=== PATIENT | female | born 1940 | race Caucasian/White ===

== ENCOUNTER → 2024-03-01 09:45 | Day surgery (SDC) | payer OTHER, SELFPAY | LOC: CATH 09:45 | PROVIDERS: ATTENDING PHYSICIAN Internal Medicine Cardiovascular Disease; FAMILY PHYSICIAN Internal Medicine; OTHER PHYSICIAN Internal Medicine Cardiovascular Disease | DX: I48.91 Unspecified atrial fibrillation (principal); I51.3 Intracardiac thrombosis, not elsewhere classified; I77.819 Aortic ectasia, unspecified site; I08.1 Rheumatic disorders of both mitral and tricuspid valves; I70.0 Atherosclerosis of aorta | CPT/HCPCS: 93312; 93320; 93325 ==

== ENCOUNTER 2024-04-11 09:37 | Day surgery (SDC) | payer OTHER, SELFPAY | END 2024-04-11 12:49 | disposition home or self-care (01) | LOC: CATH 09:37 | PROVIDERS: ATTENDING PHYSICIAN Internal Medicine Cardiovascular Disease; FAMILY PHYSICIAN Internal Medicine; OTHER PHYSICIAN Internal Medicine Interventional Cardiology | DX: I51.3 Intracardiac thrombosis, not elsewhere classified (principal); I48.91 Unspecified atrial fibrillation; Z85.07 Personal history of malignant neoplasm of pancreas; Z87.891 Personal history of nicotine dependence; Z79.01 Long term (current) use of anticoagulants | CPT/HCPCS: 93312; 93320; 93325 ==

== ENCOUNTER → 2024-04-16 09:24 | Outpatient (REF) | payer OTHER, SELFPAY | LOC: HWRAD 09:24 | PROVIDERS: ATTENDING PHYSICIAN Nurse Practitioner; FAMILY PHYSICIAN Internal Medicine | DX: R19.4 Change in bowel habit (principal) | CPT/HCPCS: 74261 ==

== ENCOUNTER → 2024-06-06 13:06 | Outpatient (REF) | payer OTHER, SELFPAY | LOC: HWRCS 13:06 | PROVIDERS: ATTENDING PHYSICIAN Nurse Practitioner; FAMILY PHYSICIAN Internal Medicine | DX: I42.9 Cardiomyopathy, unspecified (principal); I51.3 Intracardiac thrombosis, not elsewhere classified | CPT/HCPCS: 93306 ==

== ENCOUNTER 2024-06-21 07:28 | Day surgery (SDC) | payer OTHER, SELFPAY | END 2024-06-21 10:09 | disposition home or self-care (01) | LOC: CATH 07:28 | PROVIDERS: ATTENDING PHYSICIAN Internal Medicine Cardiovascular Disease; FAMILY PHYSICIAN Internal Medicine; OTHER PHYSICIAN Internal Medicine Interventional Cardiology | DX: I48.91 Unspecified atrial fibrillation (principal); I08.3 Combined rheumatic disorders of mitral, aortic and tricuspid valves; I51.3 Intracardiac thrombosis, not elsewhere classified; I10 Essential (primary) hypertension; E78.00 Pure hypercholesterolemia, unspecified; E03.9 Hypothyroidism, unspecified; Z79.01 Long term (current) use of anticoagulants; Z79.899 Other long term (current) drug therapy | CPT/HCPCS: 93312; 93320; 93325 ==

== ENCOUNTER 2024-07-19 14:46 | Emergency (ER) | payer OTHER, SELFPAY ==
[2024-07-19 14:49] VITALS: BP 136/86
[2024-07-19 15:17] VITALS: BMI 22.3
[2024-07-19 15:18] VITALS: BP 130/101
--- NOTE | 2024-07-19 16:08 | ED.GENMED ---
History of Present Illness
General
Chief Complaint: Head Injury
Source: patient
Exam Limitations: none
Time Seen by Provider: 07/19/24 14:55
History of Present Illness
History of Present Illness:
83-year-old female on Shankar presents for evaluation of head injury after a fall she sustained yesterday. She was hanging curtains and lost her balance fell hitting her left side in her head. No loss of consciousness. She notes a slight headache
but also notes left rib pain. She had an appoint with the cardiology team today but was sent here afterwards for evaluation. No neck pain. No other complaints at this time
Past History
Past History
ED Past Medical History: Asthma, Cancer (Pancreatic CA), CHF, HTN, Hypercholesterolemia, Hypothyroidism and Other (cardiomyopathy, Duodenal ulcer, Thoracic Aneurysm that they are watching)
ED Past Surgical History: Cholecystectomy, Orthopedic and Other (Whipple procedure)
Social History
Tobacco: Former smoker
Alcohol: Occasional
Drug: None
Personal:
Living: alone
Phy Exam
Physical Exam
Physical Exam:
General: Well-appearing female no acute respiratory distress
HEENT: Normocephalic atraumatic
Heart: Regular rate and rhythm
Lungs: Clear no wheeze
Musculoskeletal exam: Slight tenderness about the left lateral ribs without step-off. Spine is nontender good range of motion all extremities
Neurologic exam: Alert conversing appropriately normal gait no facial asymmetry good strength
Course
Orders/Labs/Results
Orders:
Orders
07/19/24 14:[address] [CT Head W/o Iv Contrast] Urgent
Comment:
Reason For Exam: head strike on thinners
07/19/24 15:53
CR Ribs-left 3 Vw W/pa Chest Urgent
Comment:
Reason For Exam: fall, pain
Vital Signs
Initial and Last Documented VS:
Initial Vital Signs
Temp Pulse Resp BP Pulse Ox
98.4 F 77 18 136/86 98
07/19/24 14:49 07/19/24 14:49 07/19/24 14:49 07/19/24 14:49 07/19/24 14:49
Last Documented Vital Signs
Temp Pulse Resp BP Pulse Ox
97.6 F 91 24 130/101 98
07/19/24 15:18 07/19/24 15:18 07/19/24 15:18 07/19/24 15:18 07/19/24 15:18
MDM/Problems Addressed
Differential Diagnosis Includes:
Head injury. Consider contusion versus fracture versus intracranial hemorrhage. CT of the head was ordered and reviewed and is negative for acute finding.
Left rib discomfort after fall. Consider contusion versus rib fracture versus pneumothorax. Rib series pending
*Critical Care Note
Total Time (30-74mins, 75-104mins- exclusive of procedures): Not Applicable
Update Note
Update Note:
Rib series shows no obvious acute finding. There is old fractures noted of the ribs. There is no pneumothorax. No respiratory distress today. Suspect chest wall contusion. Stable for discharge
ED Attending Note
-
Portions of this chart may have been created with voice recognition software.� Occasional wrong word or��sound alike� substitutions may have occurred due to the inherent limitations of voice recognition software.
Discharge Plan
Departure
Patient Disposition: Home (Routine Discharge)
Date of Disposition: 07/19/24
Time of Disposition: 16:39
Patient with high blood pressure during this ER visit?: No
Discharge Problem:
Chest wall contusion
Instructions: Contusion (DC)
Prescriptions:
No Action
levothyroxine [Synthroid] 50 MCG tablet
50 mcg PO DAILY
losartan 50 MG tablet
50 mg PO DAILY
atorvastatin 40 MG tablet
10 mg PO QPM
venlafaxine 75 MG tablet
75 mg PO DAILY
Rx Instructions:
on hold due to interaction with eliquis
amitriptyline 10 MG tablet
10 mg PO HS
metoprolol tartrate 25 MG tablet
50 mg PO BID
tramadol 50 mg Tablet
50 mg PO BID PRN (Reason: pain)
acetaminophen [Tylenol Ex Str Arthritis Pain] 500 mg Tablet
500 mg PO BID
naproxen sodium [Aleve] 220 mg Tablet
220 mg PO BID PRN (Reason: pain)
omeprazole 20 mg Capsule,Delayed Release(Dr/Ec)
20 mg PO DAILY
Eliquis 5 mg Tablet
5 mg PO BID
Centrum Adults 12 mcg Tablet,Chewable
1 tab PO DAILY
amiodarone 200 mg Tablet
200 mg PO DAILY
cholecalciferol (vitamin D3) [Vitamin D3] 25 mcg (1,000 unit) Tablet
25 mcg PO DAILY
calcium carbonate-vitamin D3 [Calcium 500 + D (D3)] 500 mg-3.125 mcg (125 unit) Tablet
1 tab PO DAILY
Referrals:
Robert Maya DO [Family Provider] -
Activity Restrictions/Additional Instructions:
Use Tylenol for pain. Return here for worsening symptoms otherwise follow-up with your doctor
Interventions
Interventions:
*Risk Screen - Suicide Last Done: 07/19/24 14:49
*General Assessment Last Done: 07/19/24 14:49
*Neglect/Abuse Screening Last Done: 07/19/24 14:49
*ED- Fall Risk Assessment Last Done: 07/19/24 15:18
*ED COVID-19 Vaccine History Last Done: 07/19/24 15:18
ED- Neurological Assessment Last Done: 07/19/24 15:18
ED-Skin Assessment Last Done: 07/19/24 15:18
Discharge Date and Time
Print Language: SLOVAK
== END 2024-07-19 17:15 | disposition home or self-care (01) ==
LOC: EMR 14:46
PROVIDERS: EMERGENCY PHYSICIAN Emergency Medicine; FAMILY PHYSICIAN Internal Medicine
DX: S20.212A Contusion of left front wall of thorax, initial encounter (principal); S09.90XA Unspecified injury of head, initial encounter; W19.XXXA Unspecified fall, initial encounter; E03.9 Hypothyroidism, unspecified; E78.00 Pure hypercholesterolemia, unspecified; I11.0 Hypertensive heart disease with heart failure; I50.9 Heart failure, unspecified; J45.909 Unspecified asthma, uncomplicated; Z79.01 Long term (current) use of anticoagulants; Z85.07 Personal history of malignant neoplasm of pancreas; Z87.891 Personal history of nicotine dependence; Z90.49 Acquired absence of other specified parts of digestive tract
CPT/HCPCS: 99284; 70450; 71101

== ENCOUNTER → 2024-07-26 07:05 | Outpatient (REF) | payer OTHER, SELFPAY | LOC: RCS 07:05 | PROVIDERS: ATTENDING PHYSICIAN Physician Assistant; FAMILY PHYSICIAN Internal Medicine | DX: I48.91 Unspecified atrial fibrillation (principal); I42.9 Cardiomyopathy, unspecified | CPT/HCPCS: 78452; 93017; A9500; J2785 ==

== ENCOUNTER 2024-09-26 06:15 | Day surgery (SDC) | payer OTHER, SELFPAY ==
[2024-09-26 09:40] VITALS: BP 142/91; BMI 22.0
[2024-09-26 10:05] VITALS: BMI 22.0
--- NOTE | 2024-09-26 16:15 | DOWNTIME ---
There was a [employer] Client [employer] Downtime on 09/26/2024 from 1230 to 09/26/2024 at 1550. Downtime documentation of patient's care, including medication administrations, has been reconciled in the electronic record per guidelines. Refer to the
patient's paper chart under the miscellaneous tab to see printed paper medication records and downtime forms.
== END 2024-09-26 14:59 | disposition home or self-care (01) ==
LOC: SDS 06:15
PROVIDERS: ATTENDING PHYSICIAN Internal Medicine
DX: K29.50 Unspecified chronic gastritis without bleeding (principal); K22.89 Other specified disease of esophagus; K44.9 Diaphragmatic hernia without obstruction or gangrene; K31.89 Other diseases of stomach and duodenum; D50.9 Iron deficiency anemia, unspecified; Z98.890 Other specified postprocedural states; Z79.01 Long term (current) use of anticoagulants; Z90.411 Acquired partial absence of pancreas
CPT/HCPCS: 43239; 88305; 88342

== ENCOUNTER → 2024-10-03 13:43 | Outpatient (REF) | payer OTHER, SELFPAY | LOC: RCS 13:43 | PROVIDERS: ATTENDING PHYSICIAN Internal Medicine Interventional Cardiology; FAMILY PHYSICIAN Internal Medicine | DX: I42.9 Cardiomyopathy, unspecified (principal) | CPT/HCPCS: 93306 ==

== ENCOUNTER → 2024-11-05 15:26 | Outpatient (REF) | payer OTHER, SELFPAY | LOC: RAD 15:26 | PROVIDERS: ATTENDING PHYSICIAN Internal Medicine Gastroenterology; FAMILY PHYSICIAN Internal Medicine | DX: T14.8XXA Other injury of unspecified body region, initial encounter (principal) | CPT/HCPCS: 74018 ==

== ENCOUNTER 2024-11-28 18:19 | Inpatient (IN) | payer OTHER, SELFPAY ==
[2024-11-28] VITALS (9 sets, daily range): BP systolic 99–135; BP diastolic 63–89; BMI 21.9; BMI 20.6
[2024-11-28 13:27] LABS: Hematocrit 30.6 % (37.0-47.0); Hemoglobin 9.7 g/dL (12.0-16.0); Mean Corp Hgb Conc. 31.7 g/dL (33.0-37.0); Mean Corpuscular Volume 92.2 fL (81.0-99.0); Nucleated Red Blood Cells % 0 %; Platelet Count 351 10^3/uL (130-400)
[2024-11-28 13:33] LABS: INR 3.35; PT 34.2 Sec (11.4-14.6)
[2024-11-28 13:34] LABS: APTT 48.4 Sec (23.4-35.0)
[2024-11-28 13:41] LABS: Anisocytosis 1+; Hypochromasia 1+; Normal RBC Morphology No; Ovalocytes 1+; Polychromasia 1+
[2024-11-28 13:56] LABS: ALT (SGPT) 21 U/L (0-35); AST (SGOT) 34 U/L (14-36); Albumin 3.7 g/dl (3.5-5.0); Alkaline Phosphatase 97 U/L (38-126); Blood Urea Nitrogen 40 mg/dl (7-17); Calcium 9.0 mg/dl (8.4-10.2); Carbon Dioxide 28 mmol/L (22-30); Chloride 99 mmol/L (98-107); Glucose 87 mg/dl (70-99); Potassium 4.1 mmol/L (3.5-5.1); Sodium 133 mmol/L (135-145); Total Protein 6.1 g/dl (6.3-8.2); eGFR 33.94
--- NOTE | 2024-11-28 15:37 | ED.GENMED ---
History of Present Illness
General
Chief Complaint: Abdominal Symptoms
Source: patient and family
Exam Limitations: none
Time Seen by Provider: 11/28/24 14:58
Nursing documentation reviewed up to this point in time: agreed with
History of Present Illness
History of Present Illness:
84 yr old female with A-fib on Xarelto, hypertension hyperlipidemia reflux followed by GI here presents today with dark stools. She has had rectal for the past several weeks. Family reports her hemoglobin couple weeks ago was 8.0 and she was
started on iron. Son reports her hemoglobin was 10.7 as an outpatient 1 week ago. She did have an endoscopy in August 2024 which was negative and swallowed a pill camera 2 weeks ago but forgot to hand the camera in and has no results patient does
feel intermittently weak yesterday was weak today feels little bit better. Patient does report at times she does have shortness of breath which she has related this to her A-fib
Past History
Past History
ED Past Medical History: Asthma, Cancer (Pancreatic CA), CHF, HTN, Hypercholesterolemia, Hypothyroidism and Other (cardiomyopathy, Duodenal ulcer, Thoracic Aneurysm that they are watching)
ED Past Surgical History: Cholecystectomy, Orthopedic and Other (Whipple procedure)
Social History
Tobacco: Former smoker
Alcohol: Occasional
Drug: None
Personal:
Living: alone
Phy Exam
General Physical Exam
General Presentation: no apparent distress
General age: appears stated age
General Skin: warm and dry
General Habitus: elderly
General Mental: alert
General Hydration: appears well hydrated
Gastrointestinal Exam
Gastrointestinal Exam: soft and other (very dark stool heme positive )
Neurological Exam
Neurological Exam: alert and oriented x3
Musculoskeletal Exam
Musculoskeletal Exam: full ROM
Skin Exam
Skin Exam: normal color and warm/dry
Course
Orders/Labs/Results
Orders:
Orders
11/28/24 Lunch
Cholesterol Lowering
At Your Request: Full Participation
Cholesterol Lowering: Sodium, 2 Gram
11/28/24 13:07
Type And Crossmatch [Type+Screen] Urgent
Complete Blood Count/With Diff Urgent
Comprehensive Metabolic Panel Urgent
PTT Urgent
Prothrombin Time Urgent
11/28/24 14:44
ABO2 Urgent
BBK Wristband Number:
Associate notified that ABO2 has been ordered: [id number]
Date: 11/28/24
Time: 13:27
Diagnostic Tech ID: [id number]
11/28/24 17:32
Admit/Transfer Patient As Directed
Co-Sign Provider:
Level of Care: Inpatient admission
Assign to:: Telemetry
Physician / Group: Clau Gaytan - hospitalists
Diagnosis: Symptomatic, acute blood loss anemia with dark/tarred stools
Reason for Telemetry: Medication for Arrhythmia
Date to Stop Telemetry: 11/30/24
Time to Stop Telemetry: 11:00
Reason for Hospitalization: Symptomatic, acute blood loss anemia with dark/tarred stools - IV PPI, possible
blood, GI eval for EGD
Expected length of stay greater than two midnights?: Yes
ELOS- Estimated Length of Stay in days: 2
I certify the patient meets the requirements for IP care: Yes
PRN Pain Medication Management As Directed
May give lesser potent ordered pain med per pt: Yes
preference::
Protocol:: Medication orders for pain may be administered in a
manner that supports deferring to patient preference
when the pt is:
- Requesting an ordered lesser potent pain medication.
Least to most potent pain medications are defined
as: acetaminophen < NSAID < tramadol < opioids
(morphine, oxycodone, hydromorphone).
- Requesting a lesser dose of the same medication IF
ORDERED.
- Requesting a less intrusive route of administration
if both routes are prescribed by the provider (PO <
IV).
11/28/24 17:33
Code Status As Directed
Resuscitation Status: Full Code
11/28/24 17:[address] Non Medication Order As Directed
Physician Order: please perform admission med rec and contact hospitalist when complete
11/28/24 18:23
Acetaminophen [Tylenol] 650 mg PO Q4HPRN PRN
Albuterol Nebs [Ventolin Nebules] 2.5 mg INH R Q4HPRN PRN
Bisacodyl [Dulcolax] 10 mg RECTAL [id number] PRN
Docusate W/Senna [Senokot-S] 1 tablet PO BIDPRN PRN
Ondansetron Injectable [Zofran] 4 mg IV Q6HPRN PRN
Polyethylene Glycol Powder [Miralax] 17 grams PO DAILYPRN PRN
11/28/24 18:23
GASTROINTESTINAL CONSULT Routine
Consulting Provider: Billy Alexandre
Was physician already notified: Yes
Urinalysis Reflex To Culture Routine
Urine Creatinine Routine
Urine Sodium Routine
Activity As Directed
Activity Level: As Tolerated
Bladder Scan As Directed
Follow Bladder Retention/Intermittent Cath Algorithm?: Yes
PRN if no void in __ hours: 6
Frequency: Per Retention Algorithm
If Bladder Scan Result >: 400
then:: Straight cath
Pneumatic Compression Sleeves As Directed
Type: Knee high
Straight Cath As Directed
Frequency: Per Retention Algorithm
Additional Instructions: straight cath as needed per acute urinary retention algorithm for 24 hrs
Additional Instructions: for bladder scan greater than 400 mL
Vital Signs As Directed
Frequency: Per unit guidelines
DX Deep Vein Thrombosis Video Routine
11/28/24 20:00
Metoprolol Xl [Toprol Xl] 50 mg PO BID
Pantoprazole [Protonix IV] 40 mg IV BID
11/29/24 06:00
Basic Metabolic Panel IN AM
Complete Blood Count/No Diff IN AM
Ferritin IN AM
Folate IN AM
Iron IN AM
Total Iron Binding IN AM
Vitamin B12 IN AM
11/29/24 08:00
Amiodarone [Pacerone] 200 mg PO DAILY
11/30/24 Breakfast
NPO
Allow oral meds: Yes
Allow clear liquids: Sips of Clears
Basic Metabolic Panel IN AM
Complete Blood Count/No Diff IN AM
11/30/24 11:00
DC Protocol for Telemetry ONCE
12/01/24 06:00
Basic Metabolic Panel IN AM
Complete Blood Count/No Diff IN AM
Abnormal Lab Results
11/28/24
13:07
RBC 3.32 L 10^6/uL
(4.20-5.40)
Hgb 9.7 L g/dL
(12.0-16.0)
Hct 30.6 L %
(37.0-47.0)
MCHC 31.7 L g/dL
(33.0-37.0)
Absolute Lymphs (auto) 0.9 L 10^3/uL
(1.2-3.4)
Absolute Monos (auto) 0.7 H 10^3/uL
(0.1-0.6)
Lymphocytes % 15.5 L %
(20.5-51.1)
Monocytes % 12.3 H %
(1.7-9.3)
Eosinophils % 7.1 H %
(0-6)
PT 34.2 H Sec
(11.4-14.6)
APTT 48.4 H Sec
(23.4-35.0)
Sodium 133 L mmol/L
(135-145)
BUN 40 H mg/dl
(7-17)
Creatinine 1.5 H mg/dL
(0.6-1.0)
Total Protein 6.1 L g/dl
(6.3-8.2)
11/28/24 13:07
11/28/24 13:07
Vital Signs
Initial and Last Documented VS:
Initial Vital Signs
Temp Pulse Resp BP Pulse Ox
98.2 F 77 18 99/63 96
11/28/24 12:58 11/28/24 12:58 11/28/24 12:58 11/28/24 12:58 11/28/24 12:58
Last Documented Vital Signs
Temp Pulse Resp BP Pulse Ox
97.7 F 87 16 129/85 99
11/28/24 19:47 11/28/24 19:47 11/28/24 19:47 11/28/24 19:47 11/28/24 19:47
Hide Mill Worker consulted with Physician
Hide Mill Worker consulted with physician?: Yes
Name of Physician Consulted: [email or web address]
MDM/Problems Addressed
Differential Diagnosis Includes:
GI bleed, anemia
MDM/Problems Addressed:
Patient is an 84-year-old female on Xarelto for A-fib presenting with dark stools. She apparently is on iron as well started on this several weeks ago for a low hemoglobin of 8.0. Family reports it did increase to 10.7 the patient complained of
dark stools and weakness. Patient is no active bleeding but has very dark stool here which is heme positive. 9.7 will require admission for bleed on anticoagulation.
Chronic conditions affecting care:
On Xarelto for A-fib
*Pulse Oximetry
SaO2: 97
Oxygen Mode of Delivery: Room air
Patient hypoxic: no
*Critical Care Note
Total Time (30-74mins, 75-104mins- exclusive of procedures): Not Applicable
ED Attending Note
-
Portions of this chart may have been created with voice recognition software.� Occasional wrong word or��sound alike� substitutions may have occurred due to the inherent limitations of voice recognition software.
Discharge Plan
Departure
Patient Disposition: Admit
Date of Disposition: 11/28/24
Time of Disposition: 15:58
Admit to: Med/Surg
Admit to doctor: hospitalist
Presentation/result/management discussed w/ accepting MD/DO: Hospitalist
Patient with high blood pressure during this ER visit?: No
Condition: Fair
Covid-19: Not Applicable
Discharge Problem:
GI (gastrointestinal bleed)
Interventions
Interventions:
*Risk Screen - Suicide Last Done: 11/28/24 12:58
*General Assessment Last Done: 11/28/24 12:58
*Neglect/Abuse Screening Last Done: 11/28/24 14:37
*ED- Fall Risk Assessment Last Done: 11/28/24 14:37
*ED COVID-19 Vaccine History Last Done: 11/28/24 20:44
*Nursing Disposition Last Done: 11/28/24 19:35
SH-Svwurp-Vbaayhkqae Assessment Last Done: 11/28/24 14:37
Discharge Date and Time
Discharge Date/Time: 11/28/24 19:35
--- NOTE | 2024-11-28 17:13 | HPS.HSE ---
Family Physician
-
Family Physician: Robert Maya
Chief Complaint
-
Symptomatic anemia
History of Present Illness
84 y/o F hx of pancreatic cancer s/p Whipple 2009, Afib, chronic CHF, HTN, HLD, GERD/Barretts esophagus presents to ER with dark stools. She reports rectal discomfort for past several weeks. She was evaluated and Hb level was 8.0. In the interim she
was started on oral iron. Most recent Hb was 10.7. She reports for past 1 week, she has noticed dark tarry stools and old appearing blood. Reports fatigue and SOB With exertion. Denies abd pain, no nausea/vomiting. No diarrhea. No fever/chills. No
chest pain. Had an EGD 08/2024 which did not showing bleeding lesion. She had a capsule study but forgot to hand in the camera therefore no results obtained.
Medical History
Past Medical History
Past Medical History: Reports Other (Asthma, Cancer (Pancreatic CA), CHF, HTN, Hypercholesterolemia, Hypothyroidism and Other (cardiomyopathy, Duodenal ulcer, Thoracic Aneurysm that they are watching))
Past Surgical History: Reports Other (Cholecystectomy, Orthopedic and Other (Whipple procedure))
Social History
Tobacco: Former Smoker
Alcohol: None
Drug: None
Personal:
Living: With Family (son)
Employment: Retired
Family History
Family History: Not pertinent
Allergies / Home Medications
Allergies reflects when Allergies were last updated in [email or web address].
Home Medications with original date entered in [email or web address]
Allergy/Medication List:
Allergies
Allergy/AdvReac Type Severity Reaction Status Date / Time
alendronate sodium (From Allergy stomach Verified 11/28/24 13:02
Fosamax) ulcer
clarithromycin (From Biaxin) Allergy severe Verified 11/28/24 13:02
nausea and
vomiting
meperidine HCl (From Demerol) Allergy severe Verified 11/28/24 13:02
nausea and
vomiting
morphine Allergy severe Verified 11/28/24 13:02
nausea and
vomiting
Home Medications
levothyroxine 50 mcg tablet (Synthroid) 50 mcg PO DAILY thyriod 09/30/08
amitriptyline 10 mg tablet 10 mg PO HS sleep 06/08/14
atorvastatin 40 mg tablet 10 mg PO QPM cholesterol 06/08/14
losartan 50 mg tablet 50 mg PO DAILY Blood Pressure 06/08/14
metoprolol tartrate 25 mg tablet 50 mg PO BID bp 06/08/14
venlafaxine 75 mg tablet 75 mg PO DAILY 06/08/14
acetaminophen 500 mg tablet 500 mg PO BID pain 03/01/24
naproxen sodium 220 mg tablet (Aleve) 220 mg PO BID PRN pain 03/01/24
omeprazole 20 mg capsule,delayed release 20 mg PO DAILY stomach 03/01/24
tramadol 50 mg tablet 50 mg PO BID PRN pain 03/01/24
amiodarone 200 mg tablet 200 mg PO DAILY 06/21/24
calcium 500 mg (as carbonate)-vitamin D3 3.125 mcg (125 unit) tablet 1 tab PO QPM 06/21/24
cholecalciferol (vitamin D3) 25 mcg (1,000 unit) tablet (Vitamin D3) 25 mcg PO DAILY 06/21/24
multivitamin with minerals-folic acid 12 mcg chewable tablet (Centrum Adults) 1 tab PO DAILY 06/21/24
Ocuvite 1 cap PO DAILY 09/26/24
rivaroxaban 20 mg tablet (Xarelto) 20 mg PO DAILY 09/26/24
Review of Systems
-
A 12 point ROS was completed and negative except as noted: Yes
Physical Exam
Vital Signs
Vital Signs
Temp Pulse Resp BP Pulse Ox
98.2 F 79 23 114/87 97
11/28/24 12:58 11/28/24 14:34 11/28/24 14:34 11/28/24 14:34 11/28/24 15:52
Physical Exam
General: No Apparent Distress
HEENT: NormoCephalic and Anicteric
Respiratory: Clear; No Wheezes
Cardiac: Irregular Rhythm
GI: Soft and Non Tender
Neuro: AO x 3
Hematologic/Lymphatic: No Lymphadenopathy
Psych: Calm
Laboratory Results
-
11/28/24 13:07
11/28/24 13:07
Laboratory Results
PT 34.2 Sec (11.4-14.6) H 11/28/24 13:07
INR 3.35 11/28/24 13:07
APTT 48.4 Sec (23.4-35.0) H 11/28/24 13:07
Total Bilirubin 0.6 mg/dl (0.2-1.3) 11/28/24 13:07
AST 34 U/L (14-36) 11/28/24 13:07
ALT 21 U/L (0-35) 11/28/24 13:07
Alkaline Phosphatase 97 U/L (38-126) 11/28/24 13:07
Data Reviewed
-
Lab Data: Labs Reviewed by me
Impression/Plan
-
Assessment:
Symptomatic, acute blood loss anemia with dark/tarred stools
reported hx of DU and GERD/Barretts
- Hb 9.7
- check anemia indices
- type/screen
- PPI BID
- hold Xarelto
- repeat CBC in AM; or sooner if acute bleeding occurs
- GI consultation
SHIRA
- check urine studies
- check bladder scans
- hold nephrotoxins (ARB)
Parox A. Fib
Chronic HFrEF
Essential HTN
- Echo 10/03/24: EF 35-40%, mild LVH. Global hypokinesis. mild-mod MR, mild-mod TR.
- continue Amiodarone/BB
- holding Xarelto
Hx of Asthma
- prn nebs
Hypercholesterolemia
- hold statin
Hypothyroidism
- continue replacement
Hx of Thoracic Aortic aneurysm
- continue OP surveillance
DVT ppx: SCDs
Code: Full
--- NOTE | 2024-11-28 17:47 | CM ---
CM reviewed chart and met with pt bedside in ED. Lives in 2 story home, 3 SERGE, first floor half BA, second floor BR/full BA. Son lives with her and other 2 children live close by.
Independent in ADLs, personal care and ambulation at baseline. Uses SPC, also has rolling walker.
Hx VN years ago, no hx SNF, hx inpatient rehab at [place].
PCP: Robert Maya
Pharmacy: [facility]
CM will continue to follow for all discharge planning needs
[2024-11-28] MEDS: TOPROL XL 50 MG PO (21:37)
[2024-11-28] MEDS: PROTONIX IV 40 MG IV (21:37)
[2024-11-28] MEDS: NSS (PRESERVATIVE FREE) 10 ML IV (21:37)
[2024-11-29 03:37] VITALS: BP 129/84
[2024-11-29 06:00] VITALS: BMI 20.6
--- NOTE | 2024-11-29 06:19 | CON.GI ---
Addendum entered and electronically signed by LA Anguiano 11/29/24 14:54:
correction pt s/p Miralax this am will give 10mg Dulcolax now prior to prep
Addendum entered and electronically signed by LA Anguiano 11/29/24 14:49:
pt and family agreeable for EGD/colon in AM will add prep and give dose miralax now
Addendum entered and electronically signed by LA Anguiano 11/29/24 11:16:
spoke with son he will be in later today to review with patient for work up and timing. updated nursing staff
Addendum entered and electronically signed by Billy Alexandre DO 11/29/24 10:56:
I saw and examined the patient.
The LAUNDRY CLERK's note was reviewed and I agree with the note.
Comment: Ms Santos is a 84 y.o female with a past medical history of HTN, HLD, GERD, non-dysplastic Rodriguez's, A Fib (on xarelto), pancreatic cancer (s/p Whipple in 1998) and prior history of obscure GI bleeding (08/2024 with prior unremarkable EGD
08/2024) who represented with melena and symptomatic anemia. She previously underwent an extensive endoscopic evaluation in the past however her last colonoscopy was two years ago and aborted due to A Fib with RVR. An eventual virtual colonoscopy on
04/2024 was unremarkable aside from a redundant colon without any obvious lesions. She was previously advised to have a VCE but was never returned for results to obtained. Now with similar presentation with concern for melena and acute blood
loss/symptomatic anemia consistent with obscure GI bleeding. Etiology seems concerning for AVMs given her risk factors and overall presentation. Much less likely PUD, Dieulafoy's lesion, etc. Doubt malignancy. Currently, she remains HD-stable
without concern for brisk GI bleeding. She would benefit from an eventual EGD with push-enteroscopy and colonoscopy tomorrow versus early next week (ie Tuesday, 12/03) if patient is amenable along with further discussions with family particularly if
patient is to be restarted on a/c. If bi-directional endoscopy is unrevealing, she would benefit from an eventual repeat VCE for further evaluation to complete her GI w/u. For now, would continue to hold a/c to allow for a 2-day washout of xarelto
along with empiric IV PPI and trending Hgb with serial CBC. Okay for CLD and will start prep this afternoon if patient/family are amenable. See rest of plan as outlined below.
GI will continue to follow and further recommendations to be forthcoming pending discussions with family. Thank you for allowing me to participate in the care of this patient. Please do not hesitate to call for any further questions.
Addendum entered and electronically signed by LA Anguiano 11/29/24 10:05:
left another message for son to review plan
Original Note:
Consultation
-
Date/Time Consultation Requested: 11/28/245
Date/Time Consultation Performed: 11/29/24 0620
Requesting Provider: Clau Gaytan MD
Performing Provider: LA Moore, Billy Alexandre DO
Reason for Consultation: black stools
Medical History
Chief Complaint / HPI
Chief Complaint: dark stools
History of Present Illness:
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
ascending aorta, hyperlipidemia, A-fib on Xarelto, left atrial�thrombus, hypothyroidism who follows with Dr. Bower outpatient for anemia. Last GI evaluation in August with noted Advil use twice a day and constipation with drop in hbg from 13.5 in
May to 9 in August. Per OP chart pt had �attempted a colonoscopy at [facility] about 2 years ago but she had gone into rapid A-fib and procedure was aborted and she was sent to the emergency room and since then she has been on anticoagulation
initially Eliquis and now on Xarelto and sees Dr. Rodriguez.� She had a virtual CT 04/2024 which did�not reveal any evidence of polyps or neoplasm.� There was evidence of redundant colon residual stool. At that visit noted with cora coley and reported
also had an MRI 01/2024 to�follow-up with her history of pancreatic cancer and elevated CA 19-9 which was�unremarkable with no evidence of recurrence. She was recommended EGD (completed 09/[address] Hurtado with suspicious for rodriguez;s small HH,
atrophic and erythematous mucosa, patent wipple with health mucosa bx with chronic inactive gastritis, neg H pylori. She proceeded to capsule 10/25 but per chart noted with confusion and concern that pt capsule was never retrieved by patient.
Family did contact office 11/27 with concern for continued low hbg and dark stools and directed to ER. On admission hbg was 9.7 ER rectal dark heme + stool.
In review with patient she does have some forgetfulness but admits to intermittent dark stools. She also admits to constipation and wt loss( per chart 10 kg since June) . She denies dysphagia, GERD, nausea, vomiting, abdominal pain,diarrhea
or red blood in stools.
Past Medical History
Past Medical History: Arrhythmias (on Xarelto), Asthma, Cancer (pancreatic CA with dysplastic cell./IPMN with whipple in 1998), GERD, HTN, Hypercholesterolemia, Hypothyroidism, Psychiatric (depression ) and Other (osteoporosis, migraines, ascending
aorta Aneurysm, left atrial thrombus, hx duodenal ulcer, CM)
Social History
Tobacco: Non-Smoker
Alcohol: None
Drug: None
Living: With Family
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
Family History
Family History: Other (father lung CA, mother Aortic insufficiency)
Allergies / Home Medications
Allergy/AdvReac Type Severity Reaction Status Date / Time
alendronate sodium (From Allergy stomach Verified 11/28/24 13:02
Fosamax) ulcer
clarithromycin (From Biaxin) Allergy severe Verified 11/28/24 13:02
nausea and
vomiting
meperidine HCl (From Demerol) Allergy severe Verified 11/28/24 13:02
nausea and
vomiting
morphine Allergy severe Verified 11/28/24 13:02
nausea and
vomiting
�Medication �Instructions �Recorded
levothyroxine 50 mcg tablet 50 mcg PO DAILY thyriod 09/30/08
(Synthroid)
amitriptyline 10 mg tablet 10 mg PO HS sleep 06/08/14
atorvastatin 40 mg tablet 10 mg PO QPM cholesterol 06/08/14
losartan 50 mg tablet 50 mg PO DAILY Blood Pressure 06/08/14
metoprolol tartrate 25 mg tablet 50 mg PO BID bp 06/08/14
venlafaxine 75 mg tablet 75 mg PO DAILY 06/08/14
acetaminophen 500 mg tablet 500 mg PO BID pain 03/01/24
naproxen sodium 220 mg tablet 220 mg PO BID PRN pain 03/01/24
(Aleve)
omeprazole 20 mg capsule,delayed 20 mg PO DAILY stomach 03/01/24
release
tramadol 50 mg tablet 50 mg PO BID PRN pain 03/01/24
amiodarone 200 mg tablet 200 mg PO DAILY 06/21/24
calcium 500 mg (as 1 tab PO QPM 06/21/24
carbonate)-vitamin D3 3.125 mcg
(125 unit) tablet
cholecalciferol (vitamin D3) 25 25 mcg PO DAILY 06/21/24
mcg (1,000 unit) tablet (Vitamin
D3)
multivitamin with minerals-folic 1 tab PO DAILY 06/21/24
acid 12 mcg chewable tablet
(Centrum Adults)
Ocuvite 1 cap PO DAILY 09/26/24
rivaroxaban 20 mg tablet (Xarelto) 20 mg PO DAILY 09/26/24
Review of Systems
-
Unable to obtain full review of systems at this time due to: Other (forgetful in exam )
History Source: Patient
Constitutional: Reports Weight Loss
EENT: Reports No Symptoms
Respiratory: Reports No Symptoms
Cardiac: Reports No Symptoms
Abdomen/GI: Reports Constipated and Black Stools
: Reports No Symptoms
Musculoskeletal: Reports No Symptoms
Skin: Reports No Symptoms
Neurological: Reports Weakness
Endocrine: Reports No Symptoms
Hematologic/Lymphatic: Reports Bleeding
Vital Signs
Temp Pulse Resp BP Pulse Ox
97.5 F 85 18 129/84 96
11/29/24 03:37 11/29/24 03:37 11/29/24 03:37 11/29/24 03:37 11/29/24 03:37
Physical Exam
Exam
General: Well Developed, Well Nourished and No Apparent Distress
HEENT: Normocephalic and Anicteric
Respiratory: Clear
Cardiac: Regular Rhythm
GI: Soft, Non Tender and Non Distended
Rectal: Hem Positive (dark in ER )
Musculoskeletal: No Clubbing and No Cyanosis
Skin: Warm and Dry
Neuro: Awake, Alert and Other (forgetful to some questions )
Psych: Calm
Results
WBC 5.9 10^3/uL (4.8-10.8) 11/28/24 13:07
Hgb 9.7 g/dL (12.0-16.0) L 11/28/24 13:07
Hct 30.6 % (37.0-47.0) L 11/28/24 13:07
MCV 92.2 fL (81.0-99.0) 11/28/24 13:07
Plt Count 351 10^3/uL (130-400) 11/28/24 13:07
Absolute Neuts (auto) 3.8 10^3/uL (1.4-6.5) 11/28/24 13:07
PT 34.2 Sec (11.4-14.6) H 11/28/24 13:07
INR 3.35 11/28/24 13:07
APTT 48.4 Sec (23.4-35.0) H 11/28/24 13:07
Sodium 133 mmol/L (135-145) L 11/28/24 13:07
Potassium 4.1 mmol/L (3.5-5.1) 11/28/24 13:07
Chloride 99 mmol/L (98-107) 11/28/24 13:07
Carbon Dioxide 28 mmol/L (22-30) 11/28/24 13:07
BUN 40 mg/dl (7-17) H 11/28/24 13:07
Creatinine 1.5 mg/dL (0.6-1.0) H 11/28/24 13:07
Calcium 9.0 mg/dl (8.4-10.2) 11/28/24 13:07
Total Bilirubin 0.6 mg/dl (0.2-1.3) 11/28/24 13:07
AST 34 U/L (14-36) 11/28/24 13:07
ALT 21 U/L (0-35) 11/28/24 13:07
Alkaline Phosphatase 97 U/L (38-126) 11/28/24 13:07
Diagnostic Image Results:
05/23/2024 celiac serologies�negative fecal fat is normal�pancreatic elastase low at 21 fecal Pollo elevated at 992 ESR 7
04/18/[address] scattered�fecal residue especially in the cecum and ascending colon, no medium sized or clinically significant polyps were noted, redundant colon residual stool
02/21/2024 MRI abdomen with MRCP normal liver, patent hepatic and portal veins, no ductal dilatation,�pneumobilia status post Whipple and cholecystectomy no signs of recurrent�pancreatic
11/05/24 abd X ray
1. No radiographic evidence for an endoscopy capsule in the abdomen or pelvis.
2. Moderate to large amount of fecal material in the ascending and transverse colon.
3. Severe multilevel lumbar discogenic degenerative disease.
4. Moderate right convex curvature of the midlumbar spine.
Prior GI Procedures:
EGD: 09/[address] Hurtado with suspicious for rodriguez;s small HH, atrophic and erythematous mucosa, patent wipple with health mucosa bx with chronic inactive gastritis, neg H pylori
Colonoscopy: attempted 2 years ago sent to ER with rapid afib and procedure aborted.
Assessment / Plan
-
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
aorta, hyperlipidemia, A-fib on Xarelto, left atrial�thrombus, hypothyroidism who follows with Dr. Bower outpatient for anemia. She now returns for continued dark stools and hbg 9.7 on admission with dark heme + stool in ER.
In review with patient
prior GI work up:
colon attempted 2 years ago [facility] aborted with rapid afib
virtual CT 04/2024 which did�not reveal any evidence of polyps or neoplasm.� There was evidence of redundant colon. residusal stool
EGD completed 09/[address] Hurtado with suspicious for rodriguez;s small HH, atrophic and erythematous mucosa, patent wipple with health mucosa bx with chronic inactive gastritis, neg H pylori.
capsule 10/25 but noted with confusion pt capsule was never retrieved by patient.
02/21/2024 MRI abdomen with MRCP normal liver, patent hepatic and portal veins, no ductal dilatation,�pneumobilia status post Whipple and cholecystectomy no signs of recurrent�pancreatic
-dark heme + stool
-anemia
-wt loss
-constipation
-hx panc CA dysplastic cells IPMN status post Whipple in 1998
-hx duodenal ulcer
-afib on Xarelto prior to admission
other med problems
-asthma
-osteoporosis
-GERD
-DVT
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
- migraines
-depression
-HTN
-�aneurysm of ascending aorta
-hyperlipidemia
- left atrial�thrombus
-hypothyroidism
PLAN:
etiology of bleeding unclear -- ectasia anywhere in GI tract, - PUD, mass but not noted on recent testing vs other
pt also with wt loss 10 kg per meditec since June
trend hbg and stool records
prior work up as noted
will need to review with family for conservative measure with close watch of hbg and stools with heme eval vs attempt to repeat EGD with enteroscopy/colon after Xarelto wash out
t/c eventual CT with wt loss and hx panc CA but MRI last fall and virtual recently completed as noted
if capsule attempted will need 24 hours supervision for watching for retrieval
add iron studies, b12 and folate
cont clear diet til review with family for repeat EGD/enteroscopy and colonoscopy
NSAID avoidance
cont Xarelto hold-- pt unsure of last dose ? 11/28
cont PPI BID
will start miralax and senna with large stool burden on recent imaging and c/o constipation
I left message for son yarelis to review for work up and plan
-
-
-
Thank you for consultation and allowing me to participate in the patient's care. Please call the bus matron GI physician during the after hours with any questions or concerns.
[2024-11-29 07:36] VITALS: BP 132/93
[2024-11-29] MEDS: MIRALAX 17 GRAMS PO (08:09)
[2024-11-29] MEDS: TOPROL XL 50 MG PO ×2 (08:09→20:58)
[2024-11-29] MEDS: NSS (PRESERVATIVE FREE) 10 ML IV ×2 (08:09→20:58)
[2024-11-29] MEDS: PACERONE 200 MG PO (08:09)
[2024-11-29 08:10] LABS: Blood Urea Nitrogen 25 mg/dl (7-17); Calcium 9.1 mg/dl (8.4-10.2); Carbon Dioxide 30 mmol/L (22-30); Chloride 103 mmol/L (98-107); Estimated Creatinine Clearance 34 ml/min; Glucose 82 mg/dl (70-99); Iron 52 ug/dl (37-170); Potassium 4.4 mmol/L (3.5-5.1); Sodium 138 mmol/L (135-145); eGFR 55.21
[2024-11-29] MEDS: PROTONIX IV 40 MG IV ×2 (08:10→20:58)
[2024-11-29 08:20] LABS: Total Iron Binding Capacity 328 ug/dl (265-497)
[2024-11-29 08:23] LABS: Hematocrit 33.8 % (37.0-47.0); Hemoglobin 10.4 g/dL (12.0-16.0); Mean Corp Hgb Conc. 30.8 g/dL (33.0-37.0); Mean Corpuscular Volume 93.1 fL (81.0-99.0); Platelet Count 372 10^3/uL (130-400)
[2024-11-29 10:39] LABS: Ferritin 43.2 ng/ml (11.1-264.0)
[2024-11-29 10:50] VITALS: BMI 20.6
[2024-11-29 11:05] VITALS: BP 124/87
[2024-11-29 11:11] LABS: Folate > 20.0 ng/ml (2.76-20); Vitamin B12 812 pg/ml (239-931)
--- NOTE | 2024-11-29 14:47 | W.PN.HOSP.TC ---
Today's Communication/Plan
-
NPO p MN for EGD/[place] tomorrow
Assessment / Plan
Assessment / Plan
Assessment:
Symptomatic, acute blood loss anemia with dark/tarred stools
reported hx of DU and GERD/Barretts
- Hb 10.4
- low iron sats; add IV Iron
- type/screen
- PPI BID
- hold Xarelto
- follow CBC daily
- GI consulted; for EGD/Colon Tuesday after Xarelto washout
SHIRA, pre-renal
- improved; follow BMP
- hold nephrotoxins (ARB)
Parox A. Fib
Chronic HFrEF
Essential HTN
- Echo 10/03/24: EF 35-40%, mild LVH. Global hypokinesis. mild-mod MR, mild-mod TR.
- continue Amiodarone/BB
- holding Xarelto
Hx of Asthma
- prn nebs
Hypercholesterolemia
- hold statin
Hypothyroidism
- continue replacement
Hx of Thoracic Aortic aneurysm
- continue OP surveillance
DVT ppx: SCDs
Code: Full
Anticipated Discharge: 24 - 48 hours
Subjective/Interval History
-
Date of Service: November 29, 2024
Hb 10.4
Objective Data
-
Labs:
Laboratory Results
11/29/24
07:08
WBC 5.6
Hgb 10.4 L
Hct 33.8 L
Plt Count 372
Sodium 138
Potassium 4.4
Chloride 103
Carbon Dioxide 30
BUN 25 H
Creatinine 1.0
Glucose 82
Calcium 9.1
Vital Signs:
Vital Signs
Temp Pulse Resp BP Pulse Ox
98.1 F 91 18 124/87 97
11/29/24 11:05 11/29/24 11:05 11/29/24 11:05 11/29/24 11:05 11/29/24 07:36
Physical Exam
-
General: No Apparent Distress
HEENT: Normocephalic and Atraumatic
Respiratory: Negative Wheezes
Cardiac: Regular Rhythm and S1/S2
GI: Soft and Nontender
Musculoskeletal: No Edema
Neuro: AO x 3
Hematologic / Lymphatic: No Lymphadenopathy
Psych: Calm
Data Reviewed
-
Total Time Spent with Patient (in minutes): 42
Labs: Labs Reviewed by me
[2024-11-29 15:00] VITALS: BP 150/99
--- NOTE | 2024-11-29 15:24 | CM ---
Chart reviewed; anticipated discharge ~24-48 hours. Case Management will continue to monitor for discharge needs and support as needed when identified.
[2024-11-29] MEDS: DULCOLAX 10 MG PO (17:00)
[2024-11-29] MEDS: NULYTELY SOLUTION 4 LITERS PO (17:27)
[2024-11-29 19:00] VITALS: BP 150/100
[2024-11-29] MEDS: SENOKOT 17.2 MG PO (22:32)
[2024-11-29] MEDS: ELAVIL 10 MG PO (22:32)
[2024-11-29 23:00] VITALS: BP 120/88
[2024-11-30] VITALS (9 sets, daily range): BP systolic 16–145; BP diastolic 84–94
[2024-11-30 07:45] LABS: Hematocrit 32.9 % (37.0-47.0); Hemoglobin 10.2 g/dL (12.0-16.0); Mean Corp Hgb Conc. 31.0 g/dL (33.0-37.0); Mean Corpuscular Volume 94.0 fL (81.0-99.0); Platelet Count 324 10^3/uL (130-400)
[2024-11-30 07:54] LABS: INR 1.07; PT 14.2 Sec (11.4-14.6)
[2024-11-30 08:32] LABS: Blood Urea Nitrogen 14 mg/dl (7-17); Calcium 8.7 mg/dl (8.4-10.2); Carbon Dioxide 27 mmol/L (22-30); Chloride 106 mmol/L (98-107); Estimated Creatinine Clearance 38 ml/min; Glucose 82 mg/dl (70-99); Potassium 4.1 mmol/L (3.5-5.1); Sodium 137 mmol/L (135-145); eGFR > 60.00
[2024-11-30] MEDS: TOPROL XL 50 MG PO (09:04)
[2024-11-30] MEDS: PACERONE 200 MG PO (09:04)
[2024-11-30] MEDS: EFFEXOR 75 MG PO (09:04)
[2024-11-30] MEDS: NSS (PRESERVATIVE FREE) 10 ML IV (09:05)
[2024-11-30] MEDS: MIRALAX PO (09:05)
[2024-11-30] MEDS: GAVILAX 119 GM PO (09:05)
[2024-11-30] MEDS: PROTONIX IV 40 MG IV (09:05)
--- NOTE | 2024-11-30 14:02 | W.PN.UPDATE ---
Update Note
Progress Note Update
D/w hospitalist.
OK DC GI POV
Will set up caspule outpatient pt agreeable
Recommend outpatient eval for weight loss with PCP
--- NOTE | 2024-11-30 14:35 | CM ---
Reviewed the chart notes and spoke with the patient at the bedside. IMM reviewed. CM continues to be available to patient/family and is monitoring medical plan for needs at discharge.
Plan: Discharge to home when medically stable.
--- NOTE | 2024-11-30 14:54 | W.PN.HOSP.TC ---
Addendum entered and electronically signed by Clau Gaytan MD 11/30/24 15:54:
Severe Protein Calorie Malnutrition
Original Note:
Today's Communication/Plan
-
dc to home today
Assessment / Plan
Assessment / Plan
Assessment:
Symptomatic, acute blood loss anemia with dark/tarred stools
reported hx of DU and GERD/Barretts
- Hb 10.2
- s/p IV iron; continue PO iron at home
- continue PPI
- resume Xarelto
- GI consulted; for EGD/Colon 11/30 negative. OP capsule to be arranged.
SHIRA, pre-renal
- improved; follow BMP
- hold nephrotoxins (ARB)
Parox A. Fib
Chronic HFrEF
Essential HTN
- Echo 10/03/24: EF 35-40%, mild LVH. Global hypokinesis. mild-mod MR, mild-mod TR.
- continue Amiodarone/BB
- resume Xarelto
Hx of Asthma
- prn nebs
Hypercholesterolemia
- resume statin
Hypothyroidism
- continue replacement
Hx of Thoracic Aortic aneurysm
- continue OP surveillance
DVT ppx: SCDs
Code: Full
More than 30 minutes spent in discharge including
Final examination of the patient
Summarizing hospital stay
Instructions for continuing care to all relevant caregivers
Preparation of discharge records, prescriptions, and referral forms
Total time spent (in minutes): 41
Anticipated Discharge: Today
Subjective/Interval History
-
Date of Service: November 30, 2024
s/p Small bowel EGD and Colonoscopy negative
no complaints at present
Objective Data
-
Labs:
Laboratory Results
11/30/24
07:36
WBC 6.7
Hgb 10.2 L
Hct 32.9 L
Plt Count 324
PT 14.2
INR 1.07 D
Sodium 137
Potassium 4.1
Chloride 106
Carbon Dioxide 27
BUN 14
Creatinine 0.9
Glucose 82
Calcium 8.7
Vital Signs:
Vital Signs
Temp Pulse Resp BP Pulse Ox
97.5 F 75 16 134/94 93
11/30/24 14:20 11/30/24 14:20 11/30/24 14:20 11/30/24 14:20 11/30/24 14:20
I&O
11/29/24 11/30/24 12/01/24
06:59 06:59 06:59
Intake Total 3000 / 3000
Balance 3000 / 3000
Physical Exam
-
General: No Apparent Distress
HEENT: Normocephalic and Atraumatic
Respiratory: Negative Wheezes
Cardiac: Regular Rhythm and S1/S2
GI: Soft
Genito-urinary: No Costovertebral Tender
Musculoskeletal: No Edema
Neuro: AO x 3
Psych: Calm
Data Reviewed
-
Total Time Spent with Patient (in minutes): 41
Labs: Labs Reviewed by me
--- NOTE | 2024-11-30 15:05 | W.DS.TRANS ---
DC Summary - [employer]
-
Discharge Instructions:
Sleep Apnea Risk Low
Discharge Diagnosis/Procedures symptomatic anemia, iron deficiency. EGD/
Colonoscopy negative on 11/30.
Diet Regular,Supplements
Activity As tolerated
Instructions:
Stand-Alone Forms:
Changes to Home Medications: No
Discharge Medications:
DC Medications w/original date entered in [employer]
levothyroxine 50 mcg tablet (Synthroid) 75 mcg PO DAILY thyriod 09/30/08
amitriptyline 10 mg tablet 10 mg PO HS sleep 06/08/14
atorvastatin 40 mg tablet 10 mg PO QPM cholesterol 06/08/14
losartan 50 mg tablet 50 mg PO DAILY Blood Pressure 06/08/14
metoprolol tartrate 25 mg tablet 50 mg PO BID bp 06/08/14
venlafaxine 75 mg tablet 75 mg PO DAILY Mental Health/Anxiety 06/08/14
acetaminophen 500 mg tablet 500 mg PO BID pain 03/01/24
naproxen sodium 220 mg tablet (Aleve) 220 mg PO BID PRN pain 03/01/24
omeprazole 20 mg capsule,delayed release 20 mg PO DAILY stomach 03/01/24
tramadol 50 mg tablet 50 mg PO BID PRN pain 03/01/24
amiodarone 200 mg tablet 200 mg PO DAILY Blood Clot Prevention/Tx 06/21/24
calcium 500 mg (as carbonate)-vitamin D3 3.125 mcg (125 unit) tablet 1 tab PO QPM Supplement 06/21/24
cholecalciferol (vitamin D3) 25 mcg (1,000 unit) tablet (Vitamin D3) 25 mcg PO DAILY Supplement 06/21/24
multivitamin with minerals-folic acid 12 mcg chewable tablet (Centrum Adults) 1 tab PO DAILY Supplement 06/21/24
Ocuvite 1 cap PO DAILY Supplement 09/26/24
rivaroxaban 20 mg tablet (Xarelto) 20 mg PO DAILY Blood Clot Prevention/Tx 09/26/24
Home Medication Changes
Pending Results: No
Total time spent discharging patient (in min): 42
--- NOTE | 2024-11-30 15:45 | PN.CDI ---
CDI
- -
CDI:
Physician Documentation Request
Admit Date: 11/28/24 18:19
Dear Doctor Lucila,
Clinical Indicators:
Patient admitted with acute blood loss anemia.
11/30 note/assessment: -'Significant 22lb 18.9% wt loss over the past 3-4 months.'
-'Pt meets criteria for severe protein calorie malnutrition of chronic illness with
>7.5% wt loss x 3months, prolonged poor intake prior to admit <75% for >1month.'
Based on the above information and your assessment, which of the following most accurately represents the patient's nutritional status?
Severe Protein Calorie Malnutrition
Other (please specify)
[place] Criteria ([facility] Hospitalist 2017)
2 or more criteria must be present for either
non severe or severe malnutrition
Note that the criteria differs related to the
presence of an acute or chronic illness
Acute Illness Chronic Illness
Energy Intake Non Severe: <75% for >7 days Non Severe: <75% for >1 month
Severe: <50% for >5 days Severe: <75% for >1 month
Weight Loss Non Severe: 1-2% over 1 week Non Severe: 5% over 1 month
5% over 1 month 7.5% over 3 months
7.5% over 3 months 10% over 6 months
1 year N/A 20% over 1 year
Severe: >2% over 1 week Severe: >5% over 1 month
>5% over 1 month >7.5% over 3 months
>7.5% over 3 months >10% over 6 months
1 year N/A >20% over 1 year
Body Fat Non Severe: Mild Decrease Non Severe: Mild Loss
Severe: Moderate Decrease Severe: Severe Loss
Muscle Mass Non Severe: Mild Decrease Non Severe: Mild Loss
Severe: Moderate Decrease Severe: Severe Loss
Fluid Accumulation Non Severe: Mild Accumulation Non Severe: Mild Accumulation
Severe: Moderate to severe Severe: Moderate to severe
accumulation accumulation
Reduced [employer] Strength Non Severe: N/A Non Severe: N/A
Severe: Measurably reduced Severe: Measurably reduced
Additional criteria that can be used to Determine if Mild or Moderate Malnutrition ([employer]ck Manual 2018)
Mild Moderate Severe
Albumin gm/dl <3.0 gm/dl <2.5 gm/dl <2.0 gm/dl
Pre Albumin mg/dl <15 gm/dl <10 mg/dl <5.0 mg/dl
BMI <18.5 <17 <16
Use of terms such as suspected, likely, concern for, or probable (associated with a specific diagnosis that is being evaluated, monitored, or treated as if it exists) are acceptable and can be coded in the inpatient setting, when documented at the
time of discharge.
Thank you,
SUNIL Leon RN
CDI Specialist
available via tiger text
Please use your independent medical judgment in providing your response.
[2024-11-30] MEDS: FERRLECIT 110 MG IV (15:58)
== END 2024-11-30 19:00 | disposition home or self-care (01) | DRG 377 ==
LOC: 2 NORTH 18:19
PROVIDERS: Emergency Medicine; Internal Medicine Gastroenterology; Nurse Practitioner Adult Health; ADMITTING PHYSICIAN Internal Medicine; CONSULT PHYSICIAN Student in an Organized Health Care Education/Training Program; EMERGENCY PHYSICIAN Emergency Medicine; FAMILY PHYSICIAN Internal Medicine
PROC: 0DJ08ZZ Inspection of Upper Intestinal Tract, Via Natural or Artificial Opening Endoscopic (ICD-10-PCS; 2024-11-30)
PROC: 0DJD8ZZ Inspection of Lower Intestinal Tract, Via Natural or Artificial Opening Endoscopic (ICD-10-PCS; 2024-11-30)
DX: K92.1 Melena (principal); E43 Unspecified severe protein-calorie malnutrition; D62 Acute posthemorrhagic anemia; I50.22 Chronic systolic (congestive) heart failure; I42.8 Other cardiomyopathies; N17.9 Acute kidney failure, unspecified; D50.9 Iron deficiency anemia, unspecified; K21.9 Gastro-esophageal reflux disease without esophagitis; E78.00 Pure hypercholesterolemia, unspecified; I48.0 Paroxysmal atrial fibrillation; I11.0 Hypertensive heart disease with heart failure; K22.70 Barrett's esophagus without dysplasia; E03.9 Hypothyroidism, unspecified; I71.21 Aneurysm of the ascending aorta, without rupture; K59.00 Constipation, unspecified; Z68.20 Body mass index [BMI] 20.0-20.9, adult; M81.0 Age-related osteoporosis without current pathological fracture; F32.A Depression, unspecified; G43.909 Migraine, unspecified, not intractable, without status migrainosus; K64.9 Unspecified hemorrhoids; K57.30 Diverticulosis of large intestine without perforation or abscess without bleeding; D12.3 Benign neoplasm of transverse colon; D12.5 Benign neoplasm of sigmoid colon; K44.9 Diaphragmatic hernia without obstruction or gangrene; K22.89 Other specified disease of esophagus; K31.89 Other diseases of stomach and duodenum; Z85.07 Personal history of malignant neoplasm of pancreas; Z90.411 Acquired partial absence of pancreas; Z87.11 Personal history of peptic ulcer disease; Z87.891 Personal history of nicotine dependence; Z79.01 Long term (current) use of anticoagulants
CPT/HCPCS: 80048; 80053; 82607; 82728; 82746; 83540; 83550; 85025; 85027; 85610; 85730; 86850; 86900; 86901; 87070; 99285; J2916

== ENCOUNTER 2024-12-21 02:05 | Emergency (ER) | payer OTHER, SELFPAY ==
[2024-12-21 02:31] VITALS: BP 105/87
[2024-12-21 02:46] VITALS: BP 109/64
[2024-12-21 02:46] LABS: Hematocrit 27.8 % (37.0-47.0); Hemoglobin 8.7 g/dL (12.0-16.0); Mean Corp Hgb Conc. 31.3 g/dL (33.0-37.0); Mean Corpuscular Volume 93.6 fL (81.0-99.0); Nucleated Red Blood Cells % 0 %; Platelet Count 415 10^3/uL (130-400); Red Cell Dist. Width 20.2 % (11.5-14.5)
[2024-12-21 03:05] VITALS: BMI 24.3
[2024-12-21 03:06] VITALS: BP 105/69
[2024-12-21 03:07] LABS: ALT (SGPT) 33 U/L (0-35); AST (SGOT) 33 U/L (14-36); Albumin 2.9 g/dl (3.5-5.0); Alkaline Phosphatase 146 U/L (38-126); Blood Urea Nitrogen 20 mg/dl (7-17); Calcium 8.5 mg/dl (8.4-10.2); Carbon Dioxide 26 mmol/L (22-30); Chloride 105 mmol/L (98-107); Estimated Creatinine Clearance 44 ml/min; Glucose 148 mg/dl (70-99); Potassium 4.1 mmol/L (3.5-5.1); Sodium 138 mmol/L (135-145); Total Protein 5.2 g/dl (6.3-8.2); eGFR > 60.00
[2024-12-21 03:18] LABS: Troponin I < 0.012 ng/ml
--- NOTE | 2024-12-21 03:54 | ED.GENMED ---
History of Present Illness
General
Chief Complaint: Blood Pressure Problem
Source: patient
Exam Limitations: none
Time Seen by Provider: 12/21/24 03:01
Nursing documentation reviewed up to this point in time: agreed with
History of Present Illness
History of Present Illness:
84-year-old female with past medical history of atrial fibrillation on Eliquis, congestive heart failure, hypertension, hyperlipidemia, GERD, hypothyroidism, pancreatic cancer status post Whipple who presents to the emergency department from
[facility] rehab for evaluation of chest pain and shortness of breath; also had some transient hypotension. Patient was notably admitted to this hospital late October/early November, discharged 11/30. Unfortunately last week had a significant fall
at home down a few stairs and sustained serious injuries including: Neck fractures C1, C2, C7, thoracic fractures T7, T8, multiple displaced fractures of the ribs, pneumothorax, sacral fracture. She was admitted at [facility] and
ultimately discharged to [facility] for a few days ago. She says she has been doing generally well but tonight while sleeping she started to develop chest pain. She has had rib pain from her fractures but she says that tonight the pain was
distinct substernal chest pain associated with a feeling of shortness of breath. She says that symptoms seem to have resolved now she is not sure exactly how long they lasted but she thinks less than an hour. She denies any associated cough or
fever recently. She denies any nausea, vomiting. Denies abdominal pain. She denies any dizziness or lightheadedness. Per EMS report patient also had hypotension at [facility] associated with the symptoms with blood pressure in the 80s; she
was given 400 cc of IV fluids on the way to the hospital and is normotensive now.
Past History
Past History
ED Past Medical History: Asthma, Cancer (Pancreatic CA), CHF, HTN, Hypercholesterolemia, Hypothyroidism and Other (cardiomyopathy, Duodenal ulcer, Thoracic Aneurysm that they are watching)
ED Past Surgical History: Cholecystectomy, Orthopedic and Other (Whipple procedure)
Social History
Tobacco: Former smoker
Alcohol: Occasional
Drug: None
Personal:
Living: alone
Review of Systems
Review of Systems
All Other Systems: ROS reviewed and negative except as documented in HPI and ROS
Constitutional: Denies fever
Respiratory: Reports trouble breathing; Denies cough
Cardiac: Reports chest pain; Denies diaphoresis
ABD/GI: Denies abdominal pain, nausea or vomiting
: Denies flank pain
Musculoskeletal: Denies neck pain or back pain
Neurological: Denies dizzy or headache
Phy Exam
Physical Exam
Physical Exam:
General: Awake, alert, oriented x3; no acute distress
Head: Normocephalic, atraumatic
Eyes: Conjunctiva normal, sclera anicteric
Throat: Airway intact, handling secretions
Neck: Cervical collar in place
Lungs: Clear to auscultation bilaterally, no wheezing, rales, rhonchi
Heart: Regular rate and rhythm, no murmurs, gallops, or rubs; moderate left-sided chest wall tenderness, slight bruising lateral left chest wall/flank
Abd: Soft, non distended, nontender
Neuro: Grossly intact
Skin: No rash or concerning
Extremities: No edema in extremities, equal pulses in all extremities
Scores
Heart Failure Risk
Heart Failure Risk Score: Not Applicable
Heart Score for Chest Pain Patients
STEMI patient?: No
History: Slightly or Non-Suspicious
ECG: Nonspecific Repolarization
Age: >/= 65 years
Risk Factors: 1 or 2 Risk Factors
Troponin: </= Normal Limit
Heart Score for Chest Pain Patients: 4
Heart Score Risk: 20.3% MACE over next 6 weeks
Withdrawal Assessment of Alcohol
Withdrawal Assessment Completed?: Not applicable
Course
Orders/Labs/Results
Orders:
Orders
12/21/24 02:09
Electrocardiogram (*1) Urgent
Reason for Study: Chest Pain
EKG- Treatment ONCE
12/21/24 02:32
Complete Blood Count/With Diff Urgent
Comprehensive Metabolic Panel Urgent
Troponin I Urgent
12/21/24 03:53
CT Chest PE Study Urgent
Comment:
Reason For Exam: chest pain, SOB, recent hospitalization
12/21/24 05:48
Troponin I Urgent
12/21/24 06:42
Type+Screen Urgent
Abnormal Lab Results
12/21/24
02:32
WBC 12.5 H 10^3/uL
(4.8-10.8)
RBC 2.97 L 10^6/uL
(4.20-5.40)
Hgb 8.7 L g/dL
(12.0-16.0)
Hct 27.8 L %
(37.0-47.0)
MCHC 31.3 L g/dL
(33.0-37.0)
RDW 20.2 H %
(11.5-14.5)
Plt Count 415 H 10^3/uL
(130-400)
Abs Immat Gran (auto) 0.1 H 10^3/uL
(0-0.05)
Absolute Neuts (auto) 10.5 H 10^3/uL
(1.4-6.5)
Absolute Lymphs (auto) 1.0 L 10^3/uL
(1.2-3.4)
Absolute Monos (auto) 0.7 H 10^3/uL
(0.1-0.6)
Immature Gran % 0.8 H %
(0-0.5)
Neutrophils % 83.4 H %
(42.2-75.2)
Lymphocytes % 8.0 L %
(20.5-51.1)
BUN 20 H mg/dl
(7-17)
Glucose 148 H mg/dl
(70-99)
Alkaline Phosphatase 146 H U/L
(38-126)
Total Protein 5.2 L g/dl
(6.3-8.2)
Albumin 2.9 L g/dl
(3.5-5.0)
12/21/24 02:32
12/21/24 02:32
Vital Signs
Initial and Last Documented VS:
Initial Vital Signs
Temp Pulse BP Pulse Ox
36.5 C 79 105/87 100
12/21/24 02:31 12/21/24 02:31 12/21/24 02:31 12/21/24 02:31
Last Documented Vital Signs
Temp Pulse Resp BP Pulse Ox
36.7 C 80 22 131/82 97
12/21/24 03:08 12/21/24 05:30 12/21/24 05:30 12/21/24 05:00 12/21/24 04:53
MDM/Problems Addressed
Differential Diagnosis Includes:
Pain from rib fractures, symptomatic A-fib/flutter, recurrent pneumothorax, pulmonary embolism, pneumonia
MDM/Problems Addressed:
84-year-old female with history as noted presents to the ER for evaluation after episode of chest pain and shortness of breath that seems to resolved associated with some transient hypotension. Recent admission for significant trauma as described
above, discharged to rehab a few days ago. Vital signs here are normal including blood pressure 105/87, pulse rate in the 70s, normal pulse ox and afebrile. Physical exam as above. She had labs done in triage including CBC which shows
leukocytosis to 12.5 with anemia to 8.7�discharge hemoglobin 10.2 after multiple transfusions during recent admission for GI bleeding; unclear what her discharge value was at [facility] more recently. CMP no clinically significant
abnormalities. Troponin undetectable. Check CT chest. Repeat troponin. Reassess after the above.
CT called back by radiologist�no pneumothorax but patient does have very large chest wall hematoma on the left side adjacent to the rib fractures that appears acute�measures 5 x 12 x 17 cm. Patient is maintained on Xarelto still. She has had to
point drop in her hemoglobin compared to discharge value in early November. This finding with drop in hemoglobin and earlier hypotension, chest pain I think warrants observation in the hospital. Given the posttraumatic nature of this I do think she
should be transferred back to [place] with trauma service availability. Will discuss with transfer center.
As per the [facility] by Dr. Navarrete. Will monitor pending transport.
Chronic conditions affecting care:
A-fib on Xarelto
*Radiology
Radiology exam reviewed: radiology read reviewed
*Pulse Oximetry
SaO2: 97
Oxygen Mode of Delivery: Room air
Patient hypoxic: no (97%)
*EKG
Interpreted by ED Provider?: Yes
Heart Rate: 78
Rate: normal
Rhythm: sinus
[place]: left axis deviation
Interval: long QT
QRS Pattern: normal QRS
Ischemia: T-wave inversion (Lateral T wave abnormalities)
*Critical Care Note
Total Time (30-74mins, 75-104mins- exclusive of procedures): Not Applicable
Data Reviewed
Review of Other/Old Records Reveals: Labs, Records and Discharge Summary
Source: patient, records, ambulance crew, longterm and longterm records
Patient Management
Escalation/DeEscalation of care consider admission/obs:
Admission indicated�transfer to trauma center
ED Attending Note
-
Portions of this chart may have been created with voice recognition software.� Occasional wrong word or��sound alike� substitutions may have occurred due to the inherent limitations of voice recognition software.
Discharge Plan
Departure
Patient Disposition: Acute Care Hospital
Date of Disposition: 12/21/24
Time of Disposition: 05:56
Discharge Problem:
Chest wall hematoma
Prescriptions:
No Action
levothyroxine [Synthroid] 50 MCG tablet
75 mcg PO DAILY
losartan 50 MG tablet
50 mg PO DAILY
atorvastatin 40 MG tablet
10 mg PO QPM
venlafaxine 75 MG tablet
75 mg PO DAILY
Rx Instructions:
on hold due to interaction with eliquis
amitriptyline 10 MG tablet
10 mg PO HS
metoprolol tartrate 25 MG tablet
50 mg PO BID
tramadol 50 mg Tablet
50 mg PO BID PRN (Reason: pain)
acetaminophen 500 mg Tablet
500 mg PO BID
naproxen sodium [Aleve] 220 mg Tablet
220 mg PO BID PRN (Reason: pain)
omeprazole 20 mg Capsule,Delayed Release(Dr/Ec)
20 mg PO DAILY
Centrum Adults 12 mcg Tablet,Chewable
1 tab PO DAILY
amiodarone 200 mg Tablet
200 mg PO DAILY
cholecalciferol (vitamin D3) [Vitamin D3] 25 mcg (1,000 unit) Tablet
25 mcg PO DAILY
calcium carbonate-vitamin D3 500 mg-3.125 mcg (125 unit) Tablet
1 tab PO QPM
Xarelto 20 mg Tablet
20 mg PO DAILY
Ocuvite
1 cap PO DAILY
Referrals:
Robert Maya DO [Family Provider, Internal Medicine]
Hospital Transfer
Other hospital: [facility]
I certify that the patient requires transfer: Yes
Discussed case with accepting physician: Dr. Navarrete
Reason for transfer: specialties available
Interventions
Interventions:
*General Assessment Last Done: 12/21/24 02:11
*Neglect/Abuse Screening Last Done: 12/21/24 02:11
*ED- Fall Risk Assessment Last Done: 12/21/24 02:11
*ED COVID-19 Vaccine History Last Done: 12/21/24 02:11
ED- Cardiac Assessment Last Done: 12/21/24 03:06
ED- Neurological Assessment Last Done: 12/21/24 03:06
ED- Pulmonary Assessment Last Done: 12/21/24 03:06
Discharge Date and Time
Print Language: POLISH
[2024-12-21 04:00] VITALS: BP 117/88
[2024-12-21 05:00] VITALS: BP 131/82
[2024-12-21 06:38] LABS: Troponin I < 0.012 ng/ml
== END 2024-12-21 07:15 | disposition short-term general hospital (02) ==
LOC: EMR 02:05
PROVIDERS: EMERGENCY PHYSICIAN Emergency Medicine; FAMILY PHYSICIAN Internal Medicine
DX: S20.212A Contusion of left front wall of thorax, initial encounter (principal); X58.XXXA Exposure to other specified factors, initial encounter; Y92.129 Unspecified place in nursing home as the place of occurrence of the external cause; D64.9 Anemia, unspecified; D72.829 Elevated white blood cell count, unspecified; I48.91 Unspecified atrial fibrillation; I11.0 Hypertensive heart disease with heart failure; I50.9 Heart failure, unspecified; E78.00 Pure hypercholesterolemia, unspecified; I42.9 Cardiomyopathy, unspecified; I71.20 Thoracic aortic aneurysm, without rupture, unspecified; J45.909 Unspecified asthma, uncomplicated; E03.9 Hypothyroidism, unspecified; K86.81 Exocrine pancreatic insufficiency; K21.9 Gastro-esophageal reflux disease without esophagitis; Z79.01 Long term (current) use of anticoagulants; Z85.07 Personal history of malignant neoplasm of pancreas; Z90.411 Acquired partial absence of pancreas; Z87.891 Personal history of nicotine dependence
CPT/HCPCS: 99285; 71275; 80053; 84484; 85025; 93005; Q9967

== ENCOUNTER → 2025-01-02 10:19 | Outpatient (REF) | payer OTHER, SELFPAY ==
[2025-01-02 10:50] LABS: Hematocrit 32.2 % (37.0-47.0); Hemoglobin 9.8 g/dL (12.0-16.0); Mean Corp Hgb Conc. 30.4 g/dL (33.0-37.0); Mean Corpuscular Volume 97.3 fL (81.0-99.0); Platelet Count 503 10^3/uL (130-400); Red Cell Dist. Width 19.5 % (11.5-14.5)
== END ==
LOC: OLABN 10:19
PROVIDERS: ATTENDING PHYSICIAN Student in an Organized Health Care Education/Training Program
DX: E64.9 Sequelae of unspecified nutritional deficiency (principal); I10 Essential (primary) hypertension
CPT/HCPCS: 36415; 85027

== ENCOUNTER 2025-02-18 19:54 | Emergency (ER) | payer OTHER, SELFPAY ==
[2025-02-18 19:56] VITALS: BP 143/92
[2025-02-18] MEDS: ULTRAM 25 MG PO (22:00)
[2025-02-18 22:01] VITALS: BMI 21.9
--- NOTE | 2025-02-18 22:52 | ED.MUSCINJ ---
HPI-Injury
General
Chief Complaint: Fall
Source: patient and family
Exam Limitations: none
Time Seen by Provider: 02/18/25 21:14
Nursing documentation reviewed up to this point in time: agreed with
History of Present Illness-Injury
Is this injury a work related problem?: No
Is pt an associate of [facility]?: No
Initial Injury comments:
84-year-old female left-sided rib pain acute on chronic problem 12 weeks ago she fell admitted to [facility] with rib fracture and C-spine fracture was at this [place] recuperating, collar came off today she slipped and fell hit her ribs
on a chair, no head strike no neck pain she has some pain with deep breath which is not new for her she has been using incentive spirometer she has supportive family has occupational therapy and physical therapy previously on tramadol which
apparently worked for her none for about 12 weeks
Past History
Past History
ED Past Medical History: Asthma, Cancer (Pancreatic CA), CHF, HTN, Hypercholesterolemia, Hypothyroidism and Other (cardiomyopathy, Duodenal ulcer, Thoracic Aneurysm that they are watching)
ED Past Surgical History: Cholecystectomy, Orthopedic and Other (Whipple procedure)
Social History
Tobacco: Former smoker
Alcohol: Occasional
Drug: None
Personal:
Living: alone
Phy Exam
Physical Exam
Physical Exam:
Physical Exam
General: Pleasant elderly female resting comfortable
Neck: No tongue bite no midline neck pain no bruising
Heart: s1/s2 regular rate and rhythm, no murmur. equal radial pulses.
Lungs: no acute respiratory distress. Point tender left posterior ribs and anterior
Abdomen: Not tender
Neuro: alert and oriented. no focal neurological deficits
Skin: no rash
Psychiatric: cooperative
Extremities: No sign of
Injury Course
Orders/Labs/Results
Orders:
Orders
02/18/25 21:28
Ribs, Left 3 View W/PA Chest CR [CR Ribs-left 3 Vw W/pa Chest] Urgent
Comment:
Reason For Exam: fall today, 12wk sp rib fx
02/18/25 21:29
Tramadol HCl [Ultram] 25 mg PO NOW STA
*Pulse Oximetry
SaO2: 94
Nasal Cannula flow liters per minute: 2
Oxygen Mode of Delivery: Room air
Patient hypoxic: no
*Critical Care Note
Total Time (30-74mins, 75-104mins- exclusive of procedures): Not Applicable
Update Note
Update Note:
Chest and rib series noted, looks like subacute to chronic scarring with sclerosis no obvious pneumothorax or obvious acute fracture
1115 patient looks comfortable encouraged to use her incentive spirometer, she has Tylenol and tramadol at home or and only use tramadol for back pain
ED Attending Note
-
Portions of this chart may have been created with voice recognition software.� Occasional wrong word or��sound alike� substitutions may have occurred due to the inherent limitations of voice recognition software.
Discharge Plan
Departure
Patient Disposition: Home (Routine Discharge)
Date of Disposition: 02/18/25
Time of Disposition: 23:13
Patient with high blood pressure during this ER visit?: No
Condition: Good
Discharge Problem:
Chest wall pain, chronic
Instructions: Rib fracture or bruised rib - ED (DC)
Prescriptions:
No Action
levothyroxine [Synthroid] 50 MCG tablet
75 mcg PO DAILY
losartan 50 MG tablet
50 mg PO DAILY
atorvastatin 40 MG tablet
10 mg PO QPM
venlafaxine 75 MG tablet
75 mg PO DAILY
Rx Instructions:
on hold due to interaction with eliquis
amitriptyline 10 MG tablet
10 mg PO HS
metoprolol tartrate 25 MG tablet
50 mg PO BID
tramadol 50 mg Tablet
50 mg PO BID PRN (Reason: pain)
acetaminophen 500 mg Tablet
500 mg PO BID
naproxen sodium [Aleve] 220 mg Tablet
220 mg PO BID PRN (Reason: pain)
omeprazole 20 mg Capsule,Delayed Release(Dr/Ec)
20 mg PO DAILY
Centrum Adults 12 mcg Tablet,Chewable
1 tab PO DAILY
amiodarone 200 mg Tablet
200 mg PO DAILY
cholecalciferol (vitamin D3) [Vitamin D3] 25 mcg (1,000 unit) Tablet
25 mcg PO DAILY
calcium carbonate-vitamin D3 500 mg-3.125 mcg (125 unit) Tablet
1 tab PO QPM
Xarelto 20 mg Tablet
20 mg PO DAILY
Ocuvite
1 cap PO DAILY
Referrals:
Robert Maya DO [Family Provider, Internal Medicine] - Next open appointment
Activity Restrictions/Additional Instructions:
Use incentive spirometer every 15 minutes
Tylenol as needed for pain tramadol for severe pain although use it sparingly to limit side effect
Interventions
Interventions:
*Risk Screen - Suicide Last Done: 02/18/25 23:45
*General Assessment Last Done: 02/18/25 19:56
*Neglect/Abuse Screening Last Done: 02/18/25 21:24
*ED- Fall Risk Assessment Last Done: 02/18/25 22:07
*ED COVID-19 Vaccine History Last Done: 02/18/25 22:07
*ED Influenza Vaccine History Last Done: 02/18/25 22:07
*Nursing Disposition Last Done: 02/18/25 23:45
ED-Musculoskeletal Assessment Last Done: 02/18/25 21:23
ED- Neurological Assessment Last Done: 02/18/25 21:23
ED-Skin Assessment Last Done: 02/18/25 21:24
Discharge Date and Time
Discharge Date/Time: 02/18/25 23:47
Print Language: LITHUANIAN
== END 2025-02-18 23:47 | disposition home or self-care (01) ==
LOC: EMR 19:54
PROVIDERS: EMERGENCY PHYSICIAN Emergency Medicine; FAMILY PHYSICIAN Internal Medicine
DX: G89.29 Other chronic pain (principal); R07.89 Other chest pain; E03.9 Hypothyroidism, unspecified; E78.00 Pure hypercholesterolemia, unspecified; I11.0 Hypertensive heart disease with heart failure; I50.9 Heart failure, unspecified; I42.8 Other cardiomyopathies; J45.909 Unspecified asthma, uncomplicated; Z87.81 Personal history of (healed) traumatic fracture; Z87.891 Personal history of nicotine dependence; Z90.49 Acquired absence of other specified parts of digestive tract
CPT/HCPCS: 99283; 71101

== ENCOUNTER 2025-02-20 21:53 | Inpatient (IN) | payer OTHER, SELFPAY ==
[2025-02-20] VITALS (11 sets, daily range): BP systolic 113–130; BP diastolic 77–98; BMI 21.6; BMI 20.5
[2025-02-20 17:39] LABS: Hematocrit 41.6 % (37.0-47.0); Hemoglobin 12.9 g/dL (12.0-16.0); Mean Corp Hgb Conc. 31.0 g/dL (33.0-37.0); Mean Corpuscular Volume 95.9 fL (81.0-99.0); Nucleated Red Blood Cells % 0 %; Platelet Count 477 10^3/uL (130-400); Red Cell Dist. Width 13.8 % (11.5-14.5)
--- NOTE | 2025-02-20 17:45 | ED.GENMED ---
History of Present Illness
<Ranjit Hood PA-C - Last Filed: 02/20/25 19:50>
General
Chief Complaint: Breathing Problem
Time Seen by Provider: 02/20/25 17:19
History of Present Illness
History of Present Illness:
84-year-old female with history of A-fib on Xarelto, unspecified chronic lung disease, and hypothyroidism presents to the emergency department due to low oxygen while at physical therapy today. She is approximately 3-month status post major trauma
with multiple rib fractures. She was seen in this emergency department 2 days ago after a repeat fall where x-rays showed no evidence for new injury to the chest wall or thorax. She states she felt tired today. Her son alludes to a history of
'bronchitis' that flares up this time of year with recurrent hypoxia. She was apparently hypoxic at 1 point during therapy last week but they chose not to seek medical evaluation. She denies chest pain or leg swelling. No hemoptysis. Has been
compliant with her Xarelto
Past History
<Ranjit Hood PA-C - Last Filed: 02/20/25 19:50>
Past History
ED Past Medical History: Asthma, Cancer (Pancreatic CA), CHF, HTN, Hypercholesterolemia, Hypothyroidism and Other (cardiomyopathy, Duodenal ulcer, Thoracic Aneurysm that they are watching)
ED Past Surgical History: Cholecystectomy, Orthopedic and Other (Whipple procedure)
Social History
Tobacco: Former smoker
Alcohol: Occasional
Drug: None
Personal:
Living: alone
Review of Systems
<Ranjit Hood PA-C - Last Filed: 02/20/25 19:50>
Review of Systems
Allergies reviewed?: Yes
All Other Systems: ROS reviewed and negative except as documented in HPI and ROS
Phy Exam
<Ranjit Hood PA-C - Last Filed: 02/20/25 19:50>
Physical Exam
Physical Exam:
GEN: Thin and frail, tachypneic
HEENT: Oral mucosa moist, no scleral icterus
Cardiac: Regular rate, and rhythm, no murmurs
Lung: Tachypneic without accessory muscle use, grossly diminished breath sounds
MSK: No gross deformity or injuries
Skin: Good color, no pallor or jaundice, no rashes
Neuro: AO x3, moves all extremities freely
Psych: Calm, cooperative
Scores
<Ranjit Hood PA-C - Last Filed: 02/20/25 19:50>
Heart Failure Risk
Heart Failure Risk Score: Not Applicable
Course
<Ranjit Hood PA-C - Last Filed: 02/20/25 19:50>
Orders/Labs/Results
Orders:
Orders
02/20/25 17:16
Electrocardiogram (*1) Urgent
Reason for Study: Shortness of Breath
EKG- Treatment ONCE
02/20/25 17:24
CR Chest Portable - 1 View Urgent
Comment:
Reason For Exam: SOB/hypoxia
Reason Study Needs to be Portable: Other
02/20/25 17:27
Complete Blood Count/With Diff Urgent
Comprehensive Metabolic Panel Urgent
NT-proBNP Urgent
Troponin I Urgent
02/20/25 18:55
Furosemide [Lasix] 20 mg IV NOW STA
Abnormal Lab Results
02/20/25
17:27
WBC 11.4 H 10^3/uL
(4.8-10.8)
MCHC 31.0 L g/dL
(33.0-37.0)
Plt Count 477 H 10^3/uL
(130-400)
Absolute Neuts (auto) 8.9 H 10^3/uL
(1.4-6.5)
Absolute Monos (auto) 1.0 H 10^3/uL
(0.1-0.6)
Neutrophils % 78.0 H %
(42.2-75.2)
Lymphocytes % 10.6 L %
(20.5-51.1)
BUN 21 H mg/dl
(7-17)
Glucose 129 H mg/dl
(70-99)
AST 67 H U/L
(14-36)
ALT 58 H U/L
(0-35)
Alkaline Phosphatase 214 H U/L
(38-126)
02/20/25 17:27
02/20/25 17:27
Vital Signs
Initial and Last Documented VS:
Initial Vital Signs
Temp Pulse Resp BP Pulse Ox
98.0 F 87 30 115/78 85
02/20/25 17:13 02/20/25 17:13 02/20/25 17:13 02/20/25 17:13 02/20/25 17:13
Last Documented Vital Signs
Temp Pulse Resp BP Pulse Ox
98.0 F 95 21 113/88 99
02/20/25 17:13 02/20/25 19:12 02/20/25 18:15 02/20/25 19:12 02/20/25 18:15
<Jorge Roman, DO - Last Filed: 02/20/25 17:54>
Orders/Labs/Results
Orders:
Orders
02/20/25 17:16
Electrocardiogram (*1) Urgent
Reason for Study: Shortness of Breath
EKG- Treatment ONCE
02/20/25 17:24
CR Chest Portable - 1 View Urgent
Comment:
Reason For Exam: SOB/hypoxia
Reason Study Needs to be Portable: Other
02/20/25 17:27
Complete Blood Count/With Diff Urgent
Comprehensive Metabolic Panel Urgent
NT-proBNP Urgent
Troponin I Urgent
02/20/25 18:55
Furosemide [Lasix] 20 mg IV NOW STA
Abnormal Lab Results
02/20/25
17:27
WBC 11.4 H 10^3/uL
(4.8-10.8)
MCHC 31.0 L g/dL
(33.0-37.0)
Plt Count 477 H 10^3/uL
(130-400)
Absolute Neuts (auto) 8.9 H 10^3/uL
(1.4-6.5)
Absolute Monos (auto) 1.0 H 10^3/uL
(0.1-0.6)
Neutrophils % 78.0 H %
(42.2-75.2)
Lymphocytes % 10.6 L %
(20.5-51.1)
BUN 21 H mg/dl
(7-17)
Glucose 129 H mg/dl
(70-99)
AST 67 H U/L
(14-36)
ALT 58 H U/L
(0-35)
Alkaline Phosphatase 214 H U/L
(38-126)
02/20/25 17:27
02/20/25 17:27
Vital Signs
Initial and Last Documented VS:
Initial Vital Signs
Temp Pulse Resp BP Pulse Ox
98.0 F 87 30 115/78 85
02/20/25 17:13 02/20/25 17:13 02/20/25 17:13 02/20/25 17:13 02/20/25 17:13
Last Documented Vital Signs
Temp Pulse Resp BP Pulse Ox
98.0 F 95 21 113/88 99
02/20/25 17:13 02/20/25 19:12 02/20/25 18:15 02/20/25 19:12 02/20/25 18:15
<Ranjit Hood PA-C - Last Filed: 02/20/25 19:50>
MDM/Problems Addressed
MDM/Problems Addressed:
Patient's symptoms are most likely acute CHF secondary to longstanding atrial fibs/atrial flutter. Her BNP is markedly elevated, she does not look grossly volume overloaded however chest x-ray is suspicious for vascular congestion. Will trial
low-dose Lasix and admit to the hospitalist service due to hypoxemia
<Ranjit Hood PA-C - Last Filed: 02/20/25 19:50>
*Pulse Oximetry
SaO2: 100
Nasal Cannula flow liters per minute: 3
Oxygen Mode of Delivery: Room air
Patient hypoxic: no
*Critical Care Note
Total Time (30-74mins, 75-104mins- exclusive of procedures): Not Applicable
ED Attending Note
<Ranjit Hood PA-C - Last Filed: 02/20/25 19:50>
-
Portions of this chart may have been created with voice recognition software.� Occasional wrong word or��sound alike� substitutions may have occurred due to the inherent limitations of voice recognition software.
<Jorge Roman DO - Last Filed: 02/20/25 17:54>
ED Attending Note
Patient seen and examined by attending physician: Yes
I performed the substantive portion of visit, reviewed & personally made and approve the management plan that is documented in note by myself or DOUG.: Yes
ED Attending Note:
I have seen and evaluated the patient with a [id number] encounter. I have spoken to the advance practicer provider and involved in the medical history, the physical exam, medical decision making.
Evaluation and management service: agree unless noted differently below.
Results interpretation: agree unless noted differently below.
Focused HPI: 84-year-old female presenting with weakness and shortness of breath. Patient had recent fall a few months ago where she developed multiple rib fractures. Patient claims compliance to her Xarelto
Physical exam: Frail. Shallow breaths but otherwise clear. No leg edema or unilateral tenderness
Medical Decision Making: Patient found to be hypoxic. Patient requiring supplemental oxygen. Patient ultimately require admission. PE is less likely given current anticoagulation. However, I did discuss the possibility of underlying lung disease
such as pulmonary fibrosis. Patient states she has had episodes of hypoxia
Discharge Plan
Departure
Patient Disposition: Admit
Date of Disposition: 02/20/25
Time of Disposition: 19:10
Admit to: Telemetry
Presentation/result/management discussed w/ accepting MD/DO: Hospitalist
Discharge Problem:
Acute congestive heart failure
Prescriptions:
No Action
levothyroxine [Synthroid] 50 MCG tablet
75 mcg PO DAILY
losartan 50 MG tablet
50 mg PO DAILY
atorvastatin 40 MG tablet
10 mg PO QPM
venlafaxine 75 MG tablet
75 mg PO DAILY
Rx Instructions:
on hold due to interaction with eliquis
amitriptyline 10 MG tablet
10 mg PO HS
metoprolol tartrate 25 MG tablet
50 mg PO BID
tramadol 50 mg Tablet
50 mg PO BID PRN (Reason: pain)
acetaminophen 500 mg Tablet
500 mg PO BID
naproxen sodium [Aleve] 220 mg Tablet
220 mg PO BID PRN (Reason: pain)
omeprazole 20 mg Capsule,Delayed Release(Dr/Ec)
20 mg PO DAILY
Centrum Adults 12 mcg Tablet,Chewable
1 tab PO DAILY
amiodarone 200 mg Tablet
200 mg PO DAILY
cholecalciferol (vitamin D3) [Vitamin D3] 25 mcg (1,000 unit) Tablet
25 mcg PO DAILY
calcium carbonate-vitamin D3 500 mg-3.125 mcg (125 unit) Tablet
1 tab PO QPM
Xarelto 20 mg Tablet
20 mg PO DAILY
Ocuvite
1 cap PO DAILY
Referrals:
UNKNOWN - PT DOES,NOT KNOW [Family Provider]
Interventions
Interventions:
*Risk Screen - Suicide Last Done: 02/20/25 17:13
*General Assessment Last Done: 02/20/25 17:13
*Neglect/Abuse Screening Last Done: 02/20/25 17:13
*ED- Fall Risk Assessment Last Done: 02/20/25 17:13
*ED COVID-19 Vaccine History Last Done: 02/20/25 17:13
*ED Influenza Vaccine History Last Done: 02/20/25 17:13
ED- Cardiac Assessment Last Done: 02/20/25 17:23
ED- Pulmonary Assessment Last Done: 02/20/25 17:23
Discharge Date and Time
Print Language: BHUTANESE
[2025-02-20 17:59] LABS: ALT (SGPT) 58 U/L (0-35); AST (SGOT) 67 U/L (14-36); Albumin 3.6 g/dl (3.5-5.0); Alkaline Phosphatase 214 U/L (38-126); Blood Urea Nitrogen 21 mg/dl (7-17); Calcium 9.3 mg/dl (8.4-10.2); Carbon Dioxide 28 mmol/L (22-30); Chloride 103 mmol/L (98-107); Estimated Creatinine Clearance 49 ml/min; Glucose 129 mg/dl (70-99); Potassium 3.8 mmol/L (3.5-5.1); Sodium 138 mmol/L (135-145); Total Protein 6.9 g/dl (6.3-8.2); eGFR > 60.00
[2025-02-20 18:09] LABS: Troponin I 0.018 ng/ml
[2025-02-20] MEDS: LASIX 20 MG IV (19:12)
--- NOTE | 2025-02-20 20:22 | HPS.HSE ---
Family Physician
-
Family Physician: NOT KNOW UNKNOWN - PT DOES
Chief Complaint
-
SOB, Weakness
History of Present Illness
Patient is an 84y F with PMH significant for A-Fib, HFrEF, Iron deficiency / blood loss anemia and recent major trauma who presents to ED complaining of SOB and weakness. History obtained from patient and family at the bedside. Patient suffered
major fall with trauma about 7 weeks ago. She had fractures of 7 left-sided ribs, 2 cervical vertebrae and her sacrum. She was admitted at [facility] and discharged to rehab. She seemed to be improving well per family - with fair mobility and very
little pain. About one week ago, she started to have notable dyspnea with exertion and increased complaints of left-sided chest pain. No significant cough, fevers / chills, etc.
Patient suffered an additional fall on Tuesday of this week. She was seen in the ED here for evaluation. No new fractures were appreciated; however, it was noted that she had incompletely healed L rib fractures with moderate - severe chest wall
deformity.
Patient has been followed by [facility]. She has been increasingly inactive according to family. At home her SpO2 was noted to be extremely low (in the 70s) and patient was advised to present to the ED for evaluation.
Other recent issues include iron deficiency anemia from presumed blood loss. Patient has completed EGD and colonoscopy with no evident source of bleeding. She attempted capsule endoscopy, but the capsule was not retrieved.
Patient was admitted to in November of this year for GI bleeding. Her Xarelto was held during that hospitalization and resumed thereafter.
Patient was on furosemide for CHF. Her BP was noted to be marginal at home after discharge from rehab and she was decreased to M-W-F dosing. Son states that her weight has remained stable at home - slightly decreasing if anything.
Medical History
Past Medical History
Past Medical History: Reports Other
Additional Past Medical History:
Pancreatic Cancer s/p Whipple
HFrEF
Hypertension
Thoracic Aortic Aneurysm
Atrial Fibrillation - Unknown Type
Left Atrial Appendage Thrombus
Anxiety / Depression
Mild Dementia
Hypothyroidism
Trauma / Rib Fractures
Past Surgical History: Reports Other
Additional Past Surgical History:
Whipple
Lumbar Laminectomy
Left TKA
Left TRENT
Cholecystectomy
Social History
Tobacco: Former Smoker
Alcohol: None
Drug: None
Living: With Family
Family History
Family History: Not pertinent
Allergies / Home Medications
Allergies reflects when Allergies were last updated in [employer].
Home Medications with original date entered in [employer]
Allergy/Medication List:
Allergies
Allergy/AdvReac Type Severity Reaction Status Date / Time
alendronate sodium (From Allergy stomach Verified 02/20/25 17:13
Fosamax) ulcer
clarithromycin (From Biaxin) Allergy severe Verified 02/20/25 17:13
nausea and
vomiting
meperidine HCl (From Demerol) Allergy severe Verified 02/20/25 17:13
nausea and
vomiting
morphine Allergy severe Verified 02/20/25 17:13
nausea and
vomiting
Home Medications
levothyroxine 50 mcg tablet (Synthroid) 75 mcg PO DAILY thyriod 09/30/08
amitriptyline 10 mg tablet 10 mg PO HS sleep 06/08/14
atorvastatin 40 mg tablet 10 mg PO QPM cholesterol 06/08/14
losartan 50 mg tablet 50 mg PO DAILY Blood Pressure 06/08/14
metoprolol tartrate 25 mg tablet 50 mg PO BID bp 06/08/14
venlafaxine 75 mg tablet 75 mg PO DAILY Mental Health/Anxiety 06/08/14
acetaminophen 500 mg tablet 500 mg PO BID pain 03/01/24
omeprazole 20 mg capsule,delayed release 20 mg PO DAILY stomach 03/01/24
amiodarone 200 mg tablet 200 mg PO DAILY Blood Clot Prevention/Tx 06/21/24
calcium 500 mg (as carbonate)-vitamin D3 3.125 mcg (125 unit) tablet 1 tab PO QPM Supplement 06/21/24
cholecalciferol (vitamin D3) 25 mcg (1,000 unit) tablet (Vitamin D3) 25 mcg PO DAILY Supplement 06/21/24
multivitamin with minerals-folic acid 12 mcg chewable tablet (Centrum Adults) 1 tab PO DAILY Supplement 06/21/24
rivaroxaban 20 mg tablet (Xarelto) 20 mg PO DAILY Blood Clot Prevention/Tx 09/26/24
furosemide 20 mg tablet 20 mg PO MOWEFR 02/20/25
Review of Systems
-
History Source: Patient and Family
A 12 point ROS was completed and negative except as noted: Yes
Constitutional: Reports Fatigue; Denies Fever or Chills
Respiratory: Reports Trouble Breathing; Denies Cough or Hemoptysis
Cardiac: Reports Chest Pain; Denies Diaphoresis or Palpitations
Abdomen/GI: Denies Abdominal Pain, Nausea, Vomiting or Diarrhea
: Denies Dysuria or Frequency
Musculoskeletal: Denies Joint Pain or Edema
Neurological: Reports Weakness; Denies Dizzy or Headache
Psych: Denies Depression or Anxiety
Physical Exam
Vital Signs
Vital Signs
Temp Pulse Resp BP Pulse Ox
98.0 F 85 25 118/87 98
02/20/25 17:13 02/20/25 19:45 02/20/25 19:45 02/20/25 19:45 02/20/25 19:45
Physical Exam
General: Other (84y F in no acute distress.)
HEENT: Moist mucous membranes, PERRLA and Other (No JVD / HJR)
Respiratory: Other (Decreased BS bilaterally. Evident L posterior chest wall deformity.)
Cardiac: S1/S2 and Irregular Rhythm; No Murmur
GI: Soft, Non Tender, Non Distended and Normal Bowel Sounds
Musculoskeletal: No Clubbing, No Cyanosis and No Edema
Neuro: Awake, Alert and Nonfocal/grossly intact
Laboratory Results
-
02/20/25 17:27
02/20/25 17:27
Laboratory Results
Total Bilirubin 0.9 mg/dl (0.2-1.3) 02/20/25 17:
AST 67 U/L (14-36) H 02/20/25 17:27
ALT 58 U/L (0-35) H 02/20/25 17:27
Alkaline Phosphatase 214 U/L (38-126) H 02/20/25 17:
Troponin I 0.018 ng/ml 02/20/25 17:27
Impression/Plan
-
A/P: Patient is an 84y F with PMH significant for A-Fib, CHF, hypertension and recent major trauma / rib fractures who presents to ED complaining of SOB, chest pain and with noted hypoxemia at home.
Acute Hypoxemic Respiratory Failure
- Admit for further evaluation and treatment.
- SpO2 in the 70s at home. Requiring 6 lpm of NC O2 to maintain adequate oxygenation.
- This is very likely multifactorial with contributing components of HFrEF, atelectasis / immobility, significant chest wall deformity, etc.
- Given multiple recent interruptions in Xarelto (for trauma, GI bleeding, etc) need to rule out PE.
- CTA pending - will follow-up those results.
- Treat individual issues as noted below.
- Continue oxygen / supportive care.
Acute on Chronic HFrEF
- Perhaps mild exacerbation of HFrEF.
- Recent decrease in Lasix dose. Difficult to monitor volume status with weight given recent trauma, decreased activity, decreased appetite, etc.
- IV Lasix daily for now.
- Cardiology evaluation for additional recommendations.
Moderate - Severe Chest Wall Deformity
Left Ribs 2-8 Fractures with Incomplete Healing
- Supportive care / pain control.
- Encourage activity.
- ? other options for treatment in this 84y F with mild dementia.
Persistent / Permanent Atrial Fibrillation
- Stable. Rate controlled at present.
- ANAMARIA done in June showed BIANCA thrombus.
- Maintained on Xarelto.
- Continue amiodarone and metoprolol.
Thoracic Aortic Aneurysm
- Under surveillance
- Follow-up CT findings.
Chronic Iron Deficiency Anemia
Chronic GI Blood Loss Anemia
- Hgb is stable at present on supplemental iron.
- EGD / colon unremarkable in the recent past.
- Capsule study planned but not yet successfully completed.
- Follow H&H. Monitor for any GI bleeding.
Hypothyroidism
- Continue current T4 replacement.
DVT Prophylaxis: Currently on Xarelto. Difficult situation with falls / major trauma and evidence of chronic GI bleeding AND documented presence of BIANCA thrombus.
Code Status: Full
[2025-02-20] MEDS: ELAVIL 10 MG PO (22:44)
[2025-02-20 22:57] LABS: COVID-19 Antigen Negative (Negative)
[2025-02-21] VITALS (15 sets, daily range): BP systolic 97–144; BP diastolic 72–109; PULSE 87–98; O2SAT 96; BMI 20.5
[2025-02-21] MEDS: ZOSYN 50 IV ×4 (00:21→17:52)
[2025-02-21 01:37] LABS: Troponin I 0.018 ng/ml
[2025-02-21] MEDS: SYNTHROID 75 MCG PO (05:17)
[2025-02-21 06:01] LABS: Hematocrit 39.6 % (37.0-47.0); Hemoglobin 12.5 g/dL (12.0-16.0); Mean Corp Hgb Conc. 31.6 g/dL (33.0-37.0); Mean Corpuscular Volume 93.6 fL (81.0-99.0); Platelet Count 426 10^3/uL (130-400); Red Cell Dist. Width 14.0 % (11.5-14.5)
[2025-02-21 06:22] LABS: Blood Urea Nitrogen 15 mg/dl (7-17); Calcium 8.8 mg/dl (8.4-10.2); Carbon Dioxide 32 mmol/L (22-30); Chloride 101 mmol/L (98-107); Estimated Creatinine Clearance 43 ml/min; Glucose 110 mg/dl (70-99); Potassium 3.8 mmol/L (3.5-5.1); Sodium 140 mmol/L (135-145); eGFR > 60.00
[2025-02-21 06:32] LABS: Troponin I 0.014 ng/ml
[2025-02-21] MEDS: EFFEXOR XR 75 MG PO (08:01)
[2025-02-21] MEDS: XARELTO 15 MG PO (08:01)
[2025-02-21] MEDS: PACERONE 200 MG PO (08:01)
[2025-02-21] MEDS: LASIX 20 MG PO (08:03)
[2025-02-21] MEDS: TOPROL XL 50 MG PO ×2 (08:04→19:34)
[2025-02-21] MEDS: PROTONIX 40 MG PO (08:04)
--- NOTE | 2025-02-21 08:18 | VNURNOTE ---
Chart reviewed. Patient is current with [facility]. Will continue to follow hospital course and DC plans.
--- NOTE | 2025-02-21 08:47 | CON.CAR ---
Addendum entered and electronically signed by Jaswinder Wagner MD 02/21/25 12:29:
I saw and examined the patient.
The Energy Scheduler's note was reviewed and I agree with the note.
Comment:
GEN: No distress, awake, Ox3
HEENT: supple, anicteric, mmm
LUNGS: CTA, no wheezes/rales
CV: Irreg, S1/S2, 1/6 syst LSB, S3+
ABD: soft, BS+, NT/ND
EXT: trace edema
NEURO: Gross non-focal
SKIN: No rash
Plan:
84-year-old female with past medical history of persistent atrial fibrillation with persistent left atrial appendage thrombus despite anticoagulation, likely nonischemic cardiomyopathy who presents with progressive shortness of breath and acute on
chronic heart failure with reduced ejection fraction. She admits that for several weeks she has had fatigue and has become more hypoxic. Lasix was recently decreased to 20 mg 3 times a week and she presents in acute volume overload with a proBNP
of 6000. Chest CT also suggest possible pneumonia.
Will continue IV Lasix. Increase to 20 mg IV twice daily. Continue Toprol . No HOA/ARB/ARNI with hypotension.
Will check on cost of Farxiga.
We will continue rate control strategy for her atrial fibrillation. Continue Xarelto 15 mg daily. Case was discussed with primary filament maker recently and I would recommend repeat ANAMARIA over the next 1 to 2 weeks to reevaluate left atrial appendage
thrombus. It has been 8 months since we last looked at her left atrial appendage. I do believe she would benefit from a sinus rhythm long-term.
Will repeat transthoracic here to reevaluate LVEF and valves. She does have mild to moderate MR and TR.
Original Note:
Consultation
Consultation Request
Date/Time Consultation Performed: 02/21/25
Requesting Provider: Dr. Lucas
Performing Provider: Damaris Burnham PA-C for Dr. Wagner
Reason for Consultation: CHF
Medical History
-
Chief Complaint: SOB
History of Present Illness:
Patient is an 84-year-old female with past medical history of persistent atrial fibrillation with persistent left atrial appendage thrombus by ANAMARIA despite anticoagulation, presumed nonischemic cardiomyopathy, chronic heart failure with reduced EF
who presents to [facility] with complaints of worsening shortness of breath. She also reports orthopnea. She reports her ribs remained sore. She denies fevers or chills. She does report a mild cough. She denies lower extremity edema or
abdominal bloating and reports weight loss recently. She is presently on 4 L nasal cannula, however was not on supplemental oxygen coming into the hospital. She reports she is relatively asymptomatic with her A-fib, although occasionally feels her
heart racing. At last office visit 02/06/2025 her Lasix dose was decreased from 20 mg daily to 20 mg Tuesday due to relative hypotension. proBNP 6000. Chest CT was read as severe bilateral pneumonia. Cardiology consulted for
evaluation
PMH:
Persistent atrial fibrillation
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
Chronic amiodarone therapy
Presumed nonischemic cardiomyopathy
Chronic heart failure with reduced EF
Hypertension
Hyperlipidemia
History of pancreatic mass status post Whipple surgery 1998 at [facility] [place]
History of pulmonary embolism
Thoracic aortic aneurysm
Anxiety/depression
Hypothyroidism
Fall 11/2024 with 7 rib fractures and cervical spine fracture
Past Medical History
Past Medical History: Other (in HPI)
Social History
Tobacco: Former Smoker (remote)
Personal:
Living: With Family (son)
Employment: Retired
Family History
Family History: Cancer
Allergies / Home Medications
Allergy/AdvReac Type Severity Reaction Status Date / Time
alendronate sodium (From Allergy stomach Verified 02/20/25 17:13
Fosamax) ulcer
clarithromycin (From Biaxin) Allergy severe Verified 02/20/25 17:13
nausea and
vomiting
meperidine HCl (From Demerol) Allergy severe Verified 02/20/25 17:13
nausea and
vomiting
morphine Allergy severe Verified 02/20/25 17:13
nausea and
vomiting
�Medication �Instructions �Recorded �Confirmed �Type
levothyroxine 50 mcg tablet 75 mcg PO DAILY thyriod 09/30/08 02/20/25 History
(Synthroid)
amitriptyline 10 mg tablet 10 mg PO HS sleep 06/08/14 02/20/25 History
atorvastatin 40 mg tablet 10 mg PO QPM cholesterol 06/08/14 02/20/25 History
losartan 50 mg tablet 50 mg PO DAILY Blood Pressure 06/08/14 02/20/25 History
metoprolol tartrate 25 mg tablet 50 mg PO BID bp 06/08/14 02/20/25 History
venlafaxine 75 mg tablet 75 mg PO DAILY Mental 06/08/14 02/20/25 History
Health/Anxiety
acetaminophen 500 mg tablet 500 mg PO BID pain 03/01/24 02/20/25 History
omeprazole 20 mg capsule,delayed 20 mg PO DAILY stomach 03/01/24 02/20/25 History
release
amiodarone 200 mg tablet 200 mg PO DAILY Blood Clot 06/21/24 02/20/25 History
Prevention/Tx
calcium 500 mg (as 1 tab PO QPM Supplement 06/21/24 02/20/25 History
carbonate)-vitamin D3 3.125 mcg
(125 unit) tablet
cholecalciferol (vitamin D3) 25 25 mcg PO DAILY Supplement 06/21/24 02/20/25 History
mcg (1,000 unit) tablet (Vitamin
D3)
multivitamin with minerals-folic 1 tab PO DAILY Supplement 06/21/24 02/20/25 History
acid 12 mcg chewable tablet
(Centrum Adults)
rivaroxaban 20 mg tablet (Xarelto) 20 mg PO DAILY Blood Clot 09/26/24 02/20/25 History
Prevention/Tx
furosemide 20 mg tablet 20 mg PO MOWEFR 02/20/25 02/20/25 History
Review of Systems
-
History Source: Patient
All other systems: Negative unless noted
Physical Exam
Vital Signs
Temp Pulse Resp BP Pulse Ox
97.7 F 93 21 128/100 96
02/21/25 03:00 02/21/25 08:04 02/21/25 05:45 02/21/25 08:04 02/21/25 05:45
Lab Results
02/21/25 05:40
02/21/25 05:40
Troponin I 0.014 ng/ml 02/21/25 05:40
Auv-S-Plmgcunyibu Pept 6070 pg/ml 02/20/25 17:27
Physical Exam
General: No Apparent Distress, Comfortable and Other (On supplemental O2)
HEENT: Normocephalic, Anicteric and Moist Mucous Membranes
Respiratory: Crackles, Non Labored Respirations and Other (Coarse breath sounds bilaterally)
Cardiac: S1/S2 and Irregular Rhythm
GI: Soft, Non Tender, Non Distended and Normal Bowel Sounds
Musculoskeletal: No Clubbing, No Cyanosis and Edema (Trace of bilateral lower extremity)
Skin: Warm and Dry
Neuro: AO x 3
Impression / Plan
-
Primary filament maker: Dr. Rodriguez
Assessment:
Presentation with shortness of breath, hypoxia
Severe bilateral pneumonia by chest x-ray
Concern for acute on chronic heart failure with reduced EF
Persistent atrial fibrillation
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
Chronic amiodarone therapy
Presumed nonischemic cardiomyopathy, EF 30-35% by echo 09/2024
Hypertension
Hyperlipidemia
History of pancreatic mass status post Whipple surgery 1998 at [facility]
History of pulmonary embolism
Thoracic aortic aneurysm
Anxiety/depression
Hypothyroidism
Fall 11/2024 with 7 left-sided rib fractures and cervical spine and sacral fracture
Lexiscan nuclear stress test 07/26/2024: No perfusion abnormalities noted, EF 35%
Echo 06/06/2024: EF 20 to 25%, global hypokinesis with regional variability, mild to moderate MR, mild to moderate TR, PAP 50 to 55 mmHg, dilated ascending aorta measuring 3.9 cm
Echo 10/03/2024: EF 35 to 40%, global hypokinesis, mild LVH, mild to moderate MR, mild AR, mild to moderate TR, PAP 26 mmHg
Plan:
- Patient presents with shortness of breath, increasing levels of inactivity and hypoxia
- She had chest CT which was read as severe bilateral pneumonia. Continue antibiotics per primary service. COVID-negative
- Cardiology consulted as proBNP elevated at 6000 and there is concern for component of acute heart failure. She does endorse some orthopnea, however denies weight gain or lower extremity edema. Her Lasix dose was just decreased several weeks ago
from 20 mg daily to 20 mg Tuesday due to relative hypotension.
- will place on IV lasix 20mg daily and assess response. Cr stable at 0.8
- LFTs mildly elevated, follow with diuresis
- wean supp O2 as able
- last echo from 09/2024 with EF 35-40%. will repeat echo to reassess EF. continue toprol. OP losartan presently on hold. would consider addition of SGLT2 inhibitor if no contraindication
- remains in rate controlled afib on review of tele. she has history of persistent BIANCA clot despite OAC. continue BB, amiodarone.
- continue xarelto. currently on 20mg QPM however based on CrCl, would consider reducing dose to 15mg QPM.
- at some point once recovered from acute illness, would consider repeat ANAMARIA to reassess for BIANCA clot
- d/w nursing
Data Reviewed
-
EKG: Tracing Personally Visualized and interpreted
Radiology: Report Reviewed by me
CT Scan: Report Reviewed by me
Medical Tests (Nuc Med, Echo etc): Report Reviewed by me
Labs: Labs Reviewed by me
Old Records: Reviewed
--- NOTE | 2025-02-21 09:23 | PTCARENOTE ---
Pt AAOIx3 co of pain L side, repositioned offered Tylenol pt declined states it does not help. Breakfast ordeered and meds given .
--- NOTE | 2025-02-21 10:54 | CON.PUL ---
Consultation
Consultation Request
Date/Time Consultation Requested: 02/21/25
Date/Time Consultation Performed: 02/21/25
Performing Provider: Zaina
Reason for Consultation: Hypoxia, rib fx hx
Medical History
-
History of Present Illness:
Patient is an 84y F with PMH significant for A-Fib on Xarelto, HFrEF, Iron deficiency anemia presenting to ED complaining of SOB and weakness. Patient suffered major fall with trauma about 7 weeks ago. She had fractures of 7 ribs on the left, 2
cervical vertebrae and sacrum. She was admitted at [facility] and discharged to rehab. About one week ago, she started to have notable dyspnea with exertion and increased complaints of left-sided chest pain. No significant cough, fevers / chills.
Patient suffered an additional fall on Sunday 02/18. She was seen in the ED here for evaluation. No new fractures were appreciated; however, it was noted that she had incompletely healed L rib fractures with moderate-severe chest wall deformity.
She has been increasingly inactive in the past week according to family. At home her SpO2 was noted to be extremely low (in the 70s) and patient was advised to present to the ED for evaluation.
CT Chest obtained and negative for PE, she has multifocal PNA noted. She was 84-87% on RA, placed on O2. She is being treated for CHF, proBNP 6070.
Denies prior known history of lung disease in past, was a former trivial smoker overall <5 years.
Past Medical History
Past Medical History: Other (see list below)
Social History
Tobacco: Non-smoker
Alcohol: None
Drug: None
Allergies / Home Medications
Allergies
Allergy/AdvReac Type Severity Reaction Status Date / Time
alendronate sodium (From Allergy stomach Verified 02/20/25 17:13
Fosamax) ulcer
clarithromycin (From Biaxin) Allergy severe Verified 02/20/25 17:13
nausea and
vomiting
meperidine HCl (From Demerol) Allergy severe Verified 02/20/25 17:13
nausea and
vomiting
morphine Allergy severe Verified 02/20/25 17:13
nausea and
vomiting
Home Medications
�Medication �Instructions �Recorded �Confirmed �Last Taken �Type
levothyroxine 50 mcg tablet 75 mcg PO DAILY thyriod 09/30/08 02/20/25 09/26/24 06:00 History
(Synthroid)
amitriptyline 10 mg tablet 10 mg PO HS sleep 06/08/14 02/20/25 09/25/24 22:30 History
atorvastatin 40 mg tablet 10 mg PO QPM cholesterol 06/08/14 02/20/25 09/25/24 22:30 History
losartan 50 mg tablet 50 mg PO DAILY Blood Pressure 06/08/14 02/20/25 09/25/24 10:00 History
metoprolol tartrate 25 mg tablet 50 mg PO BID bp 06/08/14 02/20/25 09/25/24 22:30 History
venlafaxine 75 mg tablet 75 mg PO DAILY Mental 06/08/14 02/20/25 09/25/24 10:30 History
Health/Anxiety
acetaminophen 500 mg tablet 500 mg PO BID pain 03/01/24 02/20/25 3 Days Ago History
~09/23/24
omeprazole 20 mg capsule,delayed 20 mg PO DAILY stomach 03/01/24 02/20/25 09/25/24 22:30 History
release
amiodarone 200 mg tablet 200 mg PO DAILY Blood Clot 06/21/24 02/20/25 09/25/24 10:00 History
Prevention/Tx
calcium 500 mg (as 1 tab PO QPM Supplement 06/21/24 02/20/25 09/25/24 22:30 History
carbonate)-vitamin D3 3.125 mcg
(125 unit) tablet
cholecalciferol (vitamin D3) 25 25 mcg PO DAILY Supplement 06/21/24 02/20/25 06/20/24 10:00 History
mcg (1,000 unit) tablet (Vitamin
D3)
multivitamin with minerals-folic 1 tab PO DAILY Supplement 06/21/24 02/20/25 09/25/24 10:00 History
acid 12 mcg chewable tablet
(Centrum Adults)
rivaroxaban 20 mg tablet (Xarelto) 20 mg PO DAILY Blood Clot 09/26/24 02/20/25 09/24/24 09:00 History
Prevention/Tx
furosemide 20 mg tablet 20 mg PO MOWEFR 02/20/25 02/20/25 Unknown History
Review of Systems
-
History Source: Patient
All other systems: Negative unless noted
Vitals / Labs / Diagnostic Testing
Vital Signs
Temp Pulse Resp BP Pulse Ox
98.5 F 97 25 128/100 94
02/21/25 07:09 02/21/25 09:15 02/21/25 09:15 02/21/25 08:04 02/21/25 09:21
Lab Data
02/21/25 05:40
02/21/25 05:40
Diagnostic Testing:
Physical Exam
-
HEENT: Normocephalic, Anicteric and Moist Mucous Membranes
Cardiovascular: S1/S2 and Regular Rhythm
Respiratory: Rales and Non-Labored Respirations
GI: Soft, Non Distended and Non Tender
Neurology: Awake, Alert, Oriented and No Motor Deficits
Skin: Warm and Dry
General: Comfortable and Other (NAD)
Assessment
-
Patient is an 84y F with PMH significant for A-Fib on Xarelto, HFrEF, Iron deficiency anemia presenting to ED complaining of SOB and weakness. Patient suffered major fall with trauma about 7 weeks ago. She had fractures of 7 ribs on the left, 2
cervical vertebrae and sacrum. She was admitted at [facility] and discharged to rehab. About one week ago, she started to have notable dyspnea with exertion and increased complaints of left-sided chest pain. No significant cough, fevers / chills.
Patient suffered an additional fall on Sunday 02/18. She was seen in the ED here for evaluation. No new fractures were appreciated; however, it was noted that she had incompletely healed L rib fractures with moderate-severe chest wall deformity.
She has been increasingly inactive in the past week according to family. At home her SpO2 was noted to be extremely low (in the 70s) and patient was advised to present to the ED for evaluation. CT Chest obtained and negative for PE, she has
multifocal PNA noted. She was 84-87% on RA, placed on O2. She is being treated for CHF, proBNP 6070. We are consulted for hypoxemia.
Acute hypoxic respiratory failure
Multifocal opacities on CT/effusion
Acute CHF exacerbation
Recent history of Rib fractures with chest deformity on L
SOB
Progressive weakness
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
CHFrEF 35-40%
Atrial thrombus
Atrial fibrillation/Chronic anticoagulation
GERD without esophagitis
Hx of malignant neoplasm of pancreas
HTN
Chronic constipation
Unintentional weight loss
Anemia
Plan
Hypoxemia noted on arrival, O2 gabriel 84-87%
She is placed on 4L, weaned from 6L
Does not have baseline use of O2 at home
Home O2 evaluation eventually will be needed
Prior history of lung disease is NOT noted--
Denies prior known history of lung disease in past, was a former trivial smoker overall <5 years.
No prior PFTs for review
Suspect patient has AE CHF with known reduced EF
CXR/CT obtained indicating worsening mosaicism and effusion, compared to recent CT in Nov where there was little to no parenchymal disease
It would be less likely related to new lung disease in <2 mos time period
proBNP >6000
Prior ECHO results are reviewed indicating reduced EF
She has h/o atrial thrombus/fib on chronic OAC, less likely PE
CTA was negative
She is on lasix IV, agree with this
Monitor I/Os
She is placed on abx wtih presumption this could be PNA
She has no fever/chills, WBC 11.4 (mildly noted)
Check PCT, if negative can d/c abx and observe off
Smoking history noted--trivial
Not at risk for lung disease
Multiple falls noted, may need to consider PT/OT
SNF placement
Encouraged IS
She has forgetfulness as well
Fall risk
Will need outpatient pulmonary evaluation in our office for PFTs and 6MWT
Reviewed with patient
We will follow
Diagnostic Data
ECHO 10/03/24- Normal left ventricular size. Mildly reduced systolic function. LV ejection fraction is 35-40% by visual assessment. Global hypokinesis. Mild left ventricular hypertrophy. Mild to moderate mitral regurgitation. Mild aortic
regurgitation. Mild to moderate tricuspid regurgitation. Estimated pulmonary artery pressure of 26 mmHg. Compared to the previous echo from Jun 2024, which was reviewed, EF was 20-25% at that time, otherwise no significant change.
CT Chest 02/20/25- 1. SEVERE GROUND-GLASS OPACITY in the upper lobes, right middle lobe, and superior segment of the right lower lobe which appears new from 12/21/2024. Diagnostic possibilities are (1) SEVERE BILATERAL PNEUMONIA, (2) an acute
inflammatory pneumonitis, or (3) noncardiogenic pulmonary edema.
2. Central cylindrical bronchiectasis and diffuse bronchitis throughout both lungs.
3. Small to moderate-sized chronic subpleural airspace consolidation in the right lower lobe.
4. Small left and minimal right pleural effusions.
5. Severe biatrial cardiac enlargement.
6. Fusiform ascending thoracic aortic aneurysm (4.2 cm diameter).
7. Many subacute left posterior and lateral rib fractures (left 2nd through 8th ribs) with callus formation around some of the fractures suggesting fracture healing.
8. Mild portal venous air in the liver.
9. Moderate thoracic kyphosis secondary to a chronic endplate fracture of T7.
CT Chest 12/21/24: No CTA evidence for an acute pulmonary thromboembolism. Large hematoma of the left lateral chest wall. Multiple acute, displaced left rib fractures superimposed upon other older chronic rib fractures with resultant chest wall
deformity. Small fracture of the left eighth transverse process. Small left and trace right pleural effusions.
Reports and relevant images were personally reviewed.
Total time spent on this consultation __55__ minutes which includes review of history, physical exam, medications, laboratory data, personal review of imaging, extensive review of outpatient records, discussion with care team and respiratory therapy.
--- NOTE | 2025-02-21 13:08 | W.PN.HOSP.TC ---
Today's Communication/Plan
-
Monitor vitals
See plan
Continue with antibiotic
Continue with IV diuresis
Check echo
Wean oxygen as tolerated
xarelto
Assessment / Plan
Assessment / Plan
General: Other (84y F in no acute distress.)
HEENT: Moist mucous membranes, PERRLA and Other (No JVD / HJR)
Respiratory: Other (Decreased BS bilaterally. Evident L posterior chest wall deformity.)
Cardiac: S1/S2 and Irregular Rhythm; No Murmur
GI: Soft, Non Tender, Non Distended and Normal Bowel Sounds
Musculoskeletal: No Clubbing, No Cyanosis and No Edema
Neuro: Awake, Alert and Nonfocal/grossly intact
Acute Hypoxemic Respiratory Failure
Required 6 L nasal cannula on admission, now on 4 L. Wean oxygen as tolerated
- This is very likely multifactorial with contributing components of HFrEF, atelectasis / immobility, significant chest wall deformity, pneumonia, CHF
CT chest negative for DVT however showed severe ground glass opacity in upper lobes, right middle lobe and superior segment of right lower lobe. Suspect bilateral pneumonia, inflammatory pneumonitis and pulmonary edema. Central cylindrical
bronchiectasis and diffuse bronchitis. Many subacute left posterior and lateral rib fractures
- Treat individual issues as noted below.
- Continue oxygen / supportive care.
cw abx for now; pulmonary evaluation
Acute on Chronic HFrEF
- Perhaps mild exacerbation of HFrEF.
- Recent decrease in Lasix dose. Difficult to monitor volume status with weight given recent trauma, decreased activity, decreased appetite, etc.
- IV Lasix daily for now
Cardiology following
Echo
Moderate - Severe Chest Wall Deformity
Left Ribs 2-8 Fractures with Incomplete Healing
- Supportive care / pain control.
- Encourage activity.
Persistent Atrial Fibrillation
- Stable. Rate controlled at present.
- ANAMARIA done in June showed BIANCA thrombus.
- Maintained on Xarelto.
- Continue amiodarone and metoprolol.
Thoracic Aortic Aneurysm
- Under surveillance
- Follow-up CT findings.
Chronic Iron Deficiency Anemia
Chronic GI Blood Loss Anemia
- Hgb is stable at present on supplemental iron.
- EGD / colon unremarkable in the recent past.
- Capsule study planned but not yet successfully completed.
- Follow H&H. Monitor for any GI bleeding.
Hypothyroidism
- Continue current T4 replacement.
DVT Prophylaxis: Currently on Xarelto. Difficult situation with falls / major trauma and evidence of chronic GI bleeding AND documented presence of BIANCA thrombus.
Code Status: Full
I spent a total of 52 minutes with the patient or on the floor. More than 50% of this time involved counseling and coordination of care.
Anticipated Discharge: > 48 hours
Subjective/Interval History
-
Date of Service: February 21, 2025
denies pain
Objective Data
-
Labs:
Laboratory Results
02/21/25
05:40
WBC 8.9
Hgb 12.5
Hct 39.6
Plt Count 426 H
Sodium 140
Potassium 3.8
Chloride 101
Carbon Dioxide 32 H
BUN 15
Creatinine 0.8
Glucose 110 H
Calcium 8.8
Vital Signs:
Vital Signs
Temp Pulse Resp BP Pulse Ox
98.2 F 100 23 133/100 92
02/21/25 11:39 02/21/25 11:30 02/21/25 11:30 02/21/25 10:00 02/21/25 11:30
I&O
02/20/25 02/21/25 02/22/25
06:59 06:59 06:59
Intake Total 50 / 50
Output Total 1350 / 1350
Balance -1350 / -1350 50 / 50
[2025-02-21 13:55] LABS: Troponin I 0.014 ng/ml
--- NOTE | 2025-02-21 15:30 | CM ---
Initial Assessment Completed By Grecia
Patient lives in 2 story home with son only, 3 steps to enter the first floor where there is a half BA the second floor has a BR & full BA. Patient uses a rolling walker plus uses commode in the living room when son is not there. Had PT/ OT via
and No HX of SNF,
PCP: Robert Maya
Pharmacy: [facility]
Patient has transportation home. PLAN: Home PT vs. SNF
[2025-02-21 16:58] LABS: Procalcitonin 0.14 ng/ml (0.0-0.25)
[2025-02-21] MEDS: LIPITOR 10 MG PO (17:52)
[2025-02-21] MEDS: LASIX 20 MG IV (19:34)
--- NOTE | 2025-02-21 20:32 | PTCARENOTE ---
assumed care of pt from dayshift rn after change of shift report. pt is forgetful at times, able to be re directed. bed alarm in use. satting 95% on 4L 02. denies current SOB. afib on monitor, HR 98 bpm. assessment as documented. call light in
reach. safe environment maintained.
[2025-02-21] MEDS: ELAVIL 10 MG PO (21:48)
[2025-02-22] VITALS (19 sets, daily range): BP systolic 73–134; BP diastolic 54–114; PULSE 96; O2SAT 85
[2025-02-22] MEDS: ZOSYN 50 IV ×3 (00:36→12:24)
[2025-02-22 04:40] LABS: Hematocrit 39.7 % (37.0-47.0); Hemoglobin 12.8 g/dL (12.0-16.0); Mean Corp Hgb Conc. 32.2 g/dL (33.0-37.0); Mean Corpuscular Volume 91.5 fL (81.0-99.0); Nucleated Red Blood Cells % 0 %; Platelet Count 462 10^3/uL (130-400); Red Cell Dist. Width 13.7 % (11.5-14.5)
[2025-02-22 04:56] LABS: ALT (SGPT) 75 U/L (0-35); AST (SGOT) 79 U/L (14-36); Albumin 3.3 g/dl (3.5-5.0); Alkaline Phosphatase 236 U/L (38-126); Blood Urea Nitrogen 15 mg/dl (7-17); Calcium 8.7 mg/dl (8.4-10.2); Carbon Dioxide 37 mmol/L (22-30); Chloride 96 mmol/L (98-107); Estimated Creatinine Clearance 37 ml/min; Glucose 120 mg/dl (70-99); Potassium 3.1 mmol/L (3.5-5.1); Sodium 139 mmol/L (135-145); Total Protein 6.4 g/dl (6.3-8.2); eGFR > 60.00
[2025-02-22] MEDS: SYNTHROID 75 MCG PO (06:17)
[2025-02-22] MEDS: KCL 40 MEQ PO (06:17)
--- NOTE | 2025-02-22 07:18 | PTCARENOTE ---
Pt AAO to self, pt getting OOB to go to work, Pt encouraged back to bed. Breakfast ordered. Remains on 3l O2.
[2025-02-22] MEDS: PROTONIX 40 MG PO (08:03)
[2025-02-22] MEDS: TOPROL XL 50 MG PO ×2 (08:03→20:14)
[2025-02-22] MEDS: PACERONE 200 MG PO (08:03)
[2025-02-22] MEDS: EFFEXOR XR 75 MG PO (08:03)
[2025-02-22] MEDS: LASIX 20 MG IV ×2 (08:04→20:14)
[2025-02-22] MEDS: XARELTO 15 MG PO (08:06)
--- NOTE | 2025-02-22 09:20 | W.PN.PUL3 ---
Today's Communication / Plan
-
Remains on 4L NC, wean as tolerated--will need eventual home O2 assessment
Continue IV diuresis
PCT negative, can stop abx and observe off
Encouraged IS, OOB, PT/OT evals
Transfer out of IMU per team
Assessment
-
Patient is an 84y F with PMH significant for A-Fib on Xarelto, HFrEF, Iron deficiency anemia presenting to ED complaining of SOB and weakness. Patient suffered major fall with trauma about 7 weeks ago. She had fractures of 7 ribs on the left, 2
cervical vertebrae and sacrum. She was admitted at [facility] and discharged to rehab. About one week ago, she started to have notable dyspnea with exertion and increased complaints of left-sided chest pain. No significant cough, fevers / chills.
Patient suffered an additional fall on Sunday 02/18. She was seen in the ED here for evaluation. No new fractures were appreciated; however, it was noted that she had incompletely healed L rib fractures with moderate-severe chest wall deformity.
She has been increasingly inactive in the past week according to family. At home her SpO2 was noted to be extremely low (in the 70s) and patient was advised to present to the ED for evaluation. CT Chest obtained and negative for PE, she has
multifocal PNA noted. She was 84-87% on RA, placed on O2. She is being treated for CHF, proBNP 6070. We are consulted for hypoxemia.
Acute hypoxic respiratory failure
Multifocal opacities on CT/effusion
Acute CHF exacerbation
Recent history of Rib fractures with chest deformity on L
SOB
Progressive weakness
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
CHFrEF 35-40%
Atrial thrombus
Atrial fibrillation/Chronic anticoagulation
GERD without esophagitis
Hx of malignant neoplasm of pancreas
HTN
Chronic constipation
Unintentional weight loss
Anemia
Plan
Hypoxemia noted on arrival, O2 gabriel 84-87%
She is placed on 4L, weaned from 6L--continue weaning as tolerated
Does not have baseline use of O2 at home
Home O2 evaluation eventually will be needed
Prior history of lung disease is NOT noted--
Denies prior known history of lung disease in past, was a former trivial smoker overall <5 years.
No prior PFTs for review
Suspect patient has AE CHF with known reduced EF
CXR/CT obtained indicating worsening mosaicism and effusion, compared to recent CT in Nov where there was little to no parenchymal disease
It would be less likely related to new lung disease in <2 mos time period
proBNP >6000
Prior ECHO results are reviewed indicating reduced EF
She has h/o atrial thrombus/fib on chronic OAC, less likely PE
CTA was negative
She is on lasix IV, agree with this
Monitor I/Os
She is placed on abx wtih presumption this could be PNA
She has no fever/chills, WBC 11.4 (mildly noted)
PCT negative -- can d/c abx and observe off
Smoking history noted--trivial
Not at risk for lung disease
Multiple falls noted, may need to consider PT/OT
SNF placement
Encouraged IS
She has forgetfulness as well
Fall risk
Will need outpatient pulmonary evaluation in our office for PFTs and 6MWT
Reviewed with patient
Diagnostic Data
ECHO 10/03/24- Normal left ventricular size. Mildly reduced systolic function. LV ejection fraction is 35-40% by visual assessment. Global hypokinesis. Mild left ventricular hypertrophy. Mild to moderate mitral regurgitation. Mild aortic
regurgitation. Mild to moderate tricuspid regurgitation. Estimated pulmonary artery pressure of 26 mmHg. Compared to the previous echo from Jun 2024, which was reviewed, EF was 20-25% at that time, otherwise no significant change.
CT Chest 02/20/25- 1. SEVERE GROUND-GLASS OPACITY in the upper lobes, right middle lobe, and superior segment of the right lower lobe which appears new from 12/21/2024. Diagnostic possibilities are (1) SEVERE BILATERAL PNEUMONIA, (2) an acute
inflammatory pneumonitis, or (3) noncardiogenic pulmonary edema.
2. Central cylindrical bronchiectasis and diffuse bronchitis throughout both lungs.
3. Small to moderate-sized chronic subpleural airspace consolidation in the right lower lobe.
4. Small left and minimal right pleural effusions.
5. Severe biatrial cardiac enlargement.
6. Fusiform ascending thoracic aortic aneurysm (4.2 cm diameter).
7. Many subacute left posterior and lateral rib fractures (left 2nd through 8th ribs) with callus formation around some of the fractures suggesting fracture healing.
8. Mild portal venous air in the liver.
9. Moderate thoracic kyphosis secondary to a chronic endplate fracture of T7.
CT Chest 12/21/24: No CTA evidence for an acute pulmonary thromboembolism. Large hematoma of the left lateral chest wall. Multiple acute, displaced left rib fractures superimposed upon other older chronic rib fractures with resultant chest wall
deformity. Small fracture of the left eighth transverse process. Small left and trace right pleural effusions.
Reports and relevant images were personally reviewed.
Total time spent on this consultation __51__ minutes which includes review of history, physical exam, medications, laboratory data, personal review of imaging, extensive review of outpatient records, discussion with care team and respiratory therapy.
Subjective Data
-
Date of Service:
Date of Service: February 22, 2025
Chief Complaint: Pulmonary Follow Up
Subjective:
Doing well, remains on 4L
No new complaints
Objective Data
Data Reviewed
Vital Signs / I&O / Oxygen:
Vital Signs
Temp Pulse Resp BP Pulse Ox
97.6 F 86 20 122/109 96
02/22/25 08:00 02/22/25 09:00 02/22/25 09:00 02/22/25 08:03 02/22/25 08:00
Intake and Output
02/21/25 02/22/25 02/23/25
06:59 06:59 06:59
Intake Total 100 / 100
Output Total 1350 / 1350 600 / 600
Balance -1350 / -1350 -500 / -500
SaO2 96
Nasal Cannula flow liters per 4
minute
Physical Exam
General: Comfortable and Other (NAD)
HEENT: Normocephalic, Anicteric and Moist Mucous Membranes
Cardiovascular: S1-S2 and Regular Rhythm
Respiratory: Crackles and Non-Labored Respirations
GI: Soft, Non Distended and Non Tender
Neurology: Awake, Alert, Oriented and No Motor Deficits
Skin: Warm, Dry and Good Color
Labs/Micro/Reports
Lab Data
02/22/25 04:11
02/22/25 04:11
Microbiology
02/20/25 22:44 Nose MRSA Screen - Final
No Methicillin Resistant Staphylococcus aureus isolated.
--- NOTE | 2025-02-22 09:38 | W.PN.CARDCBS ---
Today's Communication / Plan
-
Continue IV Lasix and antibiotics
Restart losartan
Consider outpatient ANAMARIA to reassess for left appendage thrombus and consider possible cardioversion as reduced ejection fraction felt to be due to A-fib
Impression / Plan
-
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
Assessment:
Presentation with shortness of breath, hypoxia
Severe bilateral pneumonia by chest x-ray
Concern for acute on chronic heart failure with reduced EF
Persistent atrial fibrillation
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
Chronic amiodarone therapy
Presumed nonischemic cardiomyopathy, EF 30-35% by echo 09/2024
Hypertension
Hyperlipidemia
History of pancreatic mass status post Whipple surgery 1998 at [facility]
History of pulmonary embolism
Thoracic aortic aneurysm
Anxiety/depression
Hypothyroidism
Fall 11/2024 with 7 left-sided rib fractures and cervical spine and sacral fracture
Lexiscan nuclear stress test 07/26/2024: No perfusion abnormalities noted, EF 35%
Echo 06/06/2024: EF 20 to 25%, global hypokinesis with regional variability, mild to moderate MR, mild to moderate TR, PAP 50 to 55 mmHg, dilated ascending aorta measuring 3.9 cm
Echo 10/03/2024: EF 35 to 40%, global hypokinesis, mild LVH, mild to moderate MR, mild AR, mild to moderate TR, PAP 26 mmHg
Echocardiogram 02/21/2025: Ejection fraction 43%
Plan:
She remains on oxygen but appears comfortable
Continue IV Lasix and antibiotics
Echo relatively stable to ejection fraction 43% on February 21. Continue toprol. Will resume losartan.
consider addition of SGLT2 inhibitor if no contraindication and insurance allows, I will ask case management to,
Will consider outpatient ANAMARIA to reassess for left atrial appendage thrombus and consider outpatient cardioversion.
Progress Note - [employer]
Subjective
Date of Service: February 22, 2025
No complaints
Objective
Labs:
02/22/25 04:11
02/22/25 04:11
Labs
Hgb 12.8 g/dL (12.0-16.0) 02/22/25 04:11
Hct 39.7 % (37.0-47.0) 02/22/25 04:11
Plt Count 462 10^3/uL (130-400) H 02/22/25 04:11
Sodium 139 mmol/L (135-145) 02/22/25 04:11
Potassium 3.1 mmol/L (3.5-5.1) L 02/22/25 04:11
BUN 15 mg/dl (7-17) 02/22/25 04:11
Creatinine 0.9 mg/dL (0.6-1.0) 02/22/25 04:11
Glucose 120 mg/dl (70-99) H 02/22/25 04:11
Troponins
02/20/25 02/20/25 02/21/25
17:27 22:35 00:55
Troponin I 0.018 Cancelled 0.018
02/21/25 02/21/25
05:40 13:04
Troponin I 0.014 0.014
Vital Signs and I&O:
Vital Signs
Temp Pulse Resp BP Pulse Ox
97.6 F 86 20 122/109 96
02/22/25 08:00 02/22/25 09:00 02/22/25 09:00 02/22/25 08:03 02/22/25 08:00
Vital Signs
Temp Pulse Resp BP Pulse Ox
97.6 F 86 20 122/109 96
02/22/25 08:00 02/22/25 09:00 02/22/25 09:00 02/22/25 08:03 02/22/25 08:00
Intake & Output
02/20/25 02/21/25 02/22/2502/23/25
06:59 06:59 06:59 06:59
Intake Total 100 / 100
Output Total 1350 / 1350 600 / 600
Balance -1350 / -1350 -500 / -500
Physical Exam
Physical Exam
General: Well developed, well nourished in NAD.
Neck: Supple, no JVD, HJR, carotids +2 B/L, no bruits bilaterally.
Heart: Non displaced PMI, irregular, no murmurs, No S3, S4, no rubs.
Lungs: Scattered rhonchi
Extremities: No clubbing, cyanosis or edema bilaterally.
Neuro: Grossly nonfocal, awake, alert and oriented x3.
[2025-02-22] MEDS: COZAAR 50 MG PO (10:30)
--- NOTE | 2025-02-22 13:41 | W.PN.HOSP.TC ---
Today's Communication/Plan
-
Monitor vitals
See plan
Continue with IV diuresis
DC further Zosyn
Replete potassium
Assessment / Plan
Assessment / Plan
General: Other (84y F in no acute distress.)
HEENT: Moist mucous membranes, PERRLA and Other (No JVD / HJR)
Respiratory: Other (Decreased BS bilaterally. Evident L posterior chest wall deformity.)
Cardiac: S1/S2 and Irregular Rhythm; No Murmur
GI: Soft, Non Tender, Non Distended and Normal Bowel Sounds
Musculoskeletal: No Clubbing, No Cyanosis and No Edema
Neuro: Awake, Alert and Nonfocal/grossly intact
Acute Hypoxemic Respiratory Failure
Required 6 L nasal cannula on admission, now on 4 L. Wean oxygen as tolerated
- This is very likely multifactorial with contributing components of HFrEF, atelectasis / immobility, significant chest wall deformity, pneumonia, CHF
CT chest negative for DVT however showed severe ground glass opacity in upper lobes, right middle lobe and superior segment of right lower lobe. Suspect bilateral pneumonia, inflammatory pneumonitis and pulmonary edema. Central cylindrical
bronchiectasis and diffuse bronchitis. Many subacute left posterior and lateral rib fractures
- Treat individual issues as noted below.
- Continue oxygen / supportive care.
Procal negative, discontinue further antibiotic; pulmonary following
Continue with IV diuresis
Acute on Chronic HFrEF
- Perhaps mild exacerbation of HFrEF.
- Recent decrease in Lasix dose. Difficult to monitor volume status with weight given recent trauma, decreased activity, decreased appetite, etc.
- IV Lasix daily for now
Cardiology following
Echo 02/21 with EF 43%
Hypokalemia
Replete
Moderate - Severe Chest Wall Deformity
Left Ribs 2-8 Fractures with Incomplete Healing
- Supportive care / pain control.
- Encourage activity.
Persistent Atrial Fibrillation
- Stable. Rate controlled at present.
- ANAMARIA done in June showed BIANCA thrombus.
- Maintained on Xarelto.
- Continue amiodarone and metoprolol.
Elevated LFTs
Monitor
Denies abdominal pain
Thoracic Aortic Aneurysm
- Under surveillance
- Follow-up CT findings.
Chronic Iron Deficiency Anemia
Chronic GI Blood Loss Anemia
- Hgb is stable at present on supplemental iron.
- EGD / colon unremarkable in the recent past.
- Capsule study planned but not yet successfully completed.
- Follow H&H. Monitor for any GI bleeding.
Hypothyroidism
- Continue current T4 replacement.
DVT Prophylaxis: Currently on Xarelto. Difficult situation with falls / major trauma and evidence of chronic GI bleeding AND documented presence of BIANCA thrombus.
Code Status: Full
I spent a total of 51 minutes with the patient or on the floor. More than 50% of this time involved counseling and coordination of care.
Anticipated Discharge: > 48 hours
Subjective/Interval History
-
Date of Service: February 22, 2025
Denies pain
Objective Data
-
Labs:
Laboratory Results
02/22/25
04:11
WBC 8.8
Hgb 12.8
Hct 39.7
Plt Count 462 H
Sodium 139
Potassium 3.1 L
Chloride 96 L
Carbon Dioxide 37 H
BUN 15
Creatinine 0.9
Glucose 120 H
Calcium 8.7
Total Bilirubin 1.1
AST 79 H
ALT 75 H
Alkaline Phosphatase 236 H
Vital Signs:
Vital Signs
Temp Pulse Resp BP Pulse Ox
97.5 F 87 19 105/80 96
02/22/25 12:17 02/22/25 12:15 02/22/25 12:15 02/22/25 12:00 02/22/25 08:00
I&O
02/21/25 02/22/2525
06:59 06:59 06:59
Intake Total 100 / 100 50 / 50
Output Total 1350 / 1350 600 / 600
Balance -1350 / -1350 -500 / -500 50 / 50
--- NOTE | 2025-02-22 17:03 | W.PN.UPDATE ---
Update Note
Progress Note Update
late documentation-
earlier today I eprescribed a script for Jardiance to her pharmacy to help assess with pricing of med.
--- NOTE | 2025-02-22 17:08 | CM ---
Addendum entered by Grecia Medina 02/22/25 17:25:
Other son Brent called back, said that he and his brother will ask Mom if they want SNF tonight. Patient was at [facility] then DC to home. Patient get home VN/ PT, but this son does not know the name. PLAN: Home vs. SNF
Original Note:
F/U: SHAKILA Paige was given consult to check on Jardiance pricing at [facility], once called in, the quintanilla was no copay. Today, patient will still monitor vitals, continue with IV diuresis, DC further Zosyn, and replete potassium. SHAKILA Paige left message for
son Elan about SNF to call back re: decision and choices. PLAN: SNF when ready vs. Home.
[2025-02-22] MEDS: LIPITOR 10 MG PO (17:24)
[2025-02-22] MEDS: ELAVIL 10 MG PO (20:14)
--- NOTE | 2025-02-22 23:49 | PTCARENOTE ---
Pt aaox3, answers orientation questions appropriately, confused/forgetful at times. Weaned O2 to 2LNC from 4L. SaO2 96%. Pt continent of bladder, up to BSC with assist x1 to urinate. Purwick removed. Skin intact. VSS. BP soft, pt states that her BP
runs low at baseline. Resting comfortably in bed at this time. Call calvin within reach. Care ongoing.
[2025-02-23] VITALS (19 sets, daily range): BP systolic 86–136; BP diastolic 66–104; PULSE 83; BMI 19.4
[2025-02-23 05:25] LABS: Hematocrit 38.6 % (37.0-47.0); Hemoglobin 12.4 g/dL (12.0-16.0); Mean Corp Hgb Conc. 32.1 g/dL (33.0-37.0); Mean Corpuscular Volume 91.5 fL (81.0-99.0); Nucleated Red Blood Cells % 0 %; Platelet Count 473 10^3/uL (130-400); Red Cell Dist. Width 13.8 % (11.5-14.5)
[2025-02-23 05:51] LABS: ALT (SGPT) 87 U/L (0-35); AST (SGOT) 95 U/L (14-36); Albumin 3.3 g/dl (3.5-5.0); Alkaline Phosphatase 228 U/L (38-126); Blood Urea Nitrogen 18 mg/dl (7-17); Calcium 8.7 mg/dl (8.4-10.2); Carbon Dioxide 37 mmol/L (22-30); Chloride 96 mmol/L (98-107); Estimated Creatinine Clearance 40 ml/min; Glucose 99 mg/dl (70-99); Potassium 3.4 mmol/L (3.5-5.1); Sodium 139 mmol/L (135-145); Total Protein 6.2 g/dl (6.3-8.2); eGFR > 60.00
[2025-02-23] MEDS: SYNTHROID 75 MCG PO (06:13)
[2025-02-23] MEDS: EFFEXOR XR 75 MG PO (08:32)
[2025-02-23] MEDS: COZAAR 50 MG PO (08:32)
[2025-02-23] MEDS: TOPROL XL 50 MG PO (08:33)
[2025-02-23] MEDS: PACERONE 200 MG PO (08:33)
[2025-02-23] MEDS: XARELTO 15 MG PO (08:33)
[2025-02-23] MEDS: PROTONIX 40 MG PO (08:33)
--- NOTE | 2025-02-23 08:37 | W.PN.CARDCBS ---
Today's Communication / Plan
-
Continue IV Lasix
Continue antibiotics
Remains on oxygen but weight is decreasing with IV diuresis
Impression / Plan
-
Primary subassembly assembler: Dr. Rodriguez
Assessment:
Presentation with shortness of breath, hypoxia
Severe bilateral pneumonia by chest x-ray
Concern for acute on chronic heart failure with reduced EF
Persistent atrial fibrillation
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
Chronic amiodarone therapy
Presumed nonischemic cardiomyopathy, EF 30-35% by echo 09/2024
Hypertension
Hyperlipidemia
History of pancreatic mass status post Whipple surgery 1998 at [facility]
History of pulmonary embolism
Thoracic aortic aneurysm
Anxiety/depression
Hypothyroidism
Fall 11/2024 with 7 left-sided rib fractures and cervical spine and sacral fracture
Lexiscan nuclear stress test 07/26/2024: No perfusion abnormalities noted, EF 35%
Echo 06/06/2024: EF 20 to 25%, global hypokinesis with regional variability, mild to moderate MR, mild to moderate TR, PAP 50 to 55 mmHg, dilated ascending aorta measuring 3.9 cm
Echo 10/03/2024: EF 35 to 40%, global hypokinesis, mild LVH, mild to moderate MR, mild AR, mild to moderate TR, PAP 26 mmHg
Echocardiogram 02/21/2025: Ejection fraction 43%
Plan:
She remains on oxygen but has continued to drop weight with stable renal function
Will continue IV Lasix
Continue antibiotics
Continue Toprol, losartan and will add Farxiga for reduced ejection fraction. Could eventually consider changing to Entresto.
Will consider outpatient ANAMARIA to reassess for left atrial appendage thrombus and consider outpatient cardioversion.
Progress Note - Junior Network Engineer
Subjective
Date of Service: February 23, 2025
No complaints
Objective
Labs:
02/23/25 04:07
02/23/25 04:07
Labs
Hgb 12.4 g/dL (12.0-16.0) 02/23/25 04:07
Hct 38.6 % (37.0-47.0) 02/23/25 04:07
Plt Count 473 10^3/uL (130-400) H 02/23/25 04:07
Sodium 139 mmol/L (135-145) 02/23/25 04:07
Potassium 3.4 mmol/L (3.5-5.1) L 02/23/25 04:07
BUN 18 mg/dl (7-17) H 02/23/25 04:07
Creatinine 0.8 mg/dL (0.6-1.0) 02/23/25 04:07
Glucose 99 mg/dl (70-99) 02/23/25 04:07
Troponins
02/20/25 02/20/25 02/21/25
17:27 22:35 00:55
Troponin I 0.018 Cancelled 0.018
02/21/25 02/21/25
05:40 13:04
Troponin I 0.014 0.014
Vital Signs and I&O:
Vital Signs
Temp Pulse Resp BP Pulse Ox
98.3 F 77 21 136/104 95
02/23/25 07:00 02/23/25 08:33 02/23/25 04:15 02/23/25 08:33 02/23/25 04:15
Vital Signs
Temp Pulse Resp BP Pulse Ox
98.3 F 77 21 136/104 95
02/23/25 07:00 02/23/25 08:33 02/23/25 04:15 02/23/25 08:33 02/23/25 04:15
Intake & Output
02/21/25 02/22/25 02/23/25 02/24/25
06:59 06:59 06:59 06:59
Intake Total 100 / 100 50 / 50
Output Total 1350 / 1350 600 / 600 200 / 200
Balance -1350 / -1350 -500 / -500 -150 / -150
Physical Exam
Physical Exam
General: Well developed, well nourished in NAD.
Neck: Supple, no JVD, HJR, carotids +2 B/L, no bruits bilaterally.
Heart: Non displaced PMI, RRR, no murmurs, No S3, S4, no rubs.
Lungs: Scattered rhonchi
Extremities: No clubbing, cyanosis or edema bilaterally.
Neuro: Grossly nonfocal, awake, alert and oriented x3.
[2025-02-23] MEDS: LASIX 20 MG IV (08:38)
[2025-02-23] MEDS: FARXIGA 10 MG PO (08:41)
--- NOTE | 2025-02-23 09:24 | PTCARENOTE ---
Pt AAOx3 confused. On 2 l O2, pt in Afib, lungs are diminished.
[2025-02-23] MEDS: KCL 40 MEQ PO (10:20)
--- NOTE | 2025-02-23 13:26 | W.PN.HOSP.TC ---
Addendum entered and electronically signed by Norris Cam MD 02/23/25 13:58:
discussed with Son. Patient does have cognitive impairment. Per son, her mental status is close to baseline
Original Note:
Today's Communication/Plan
-
Monitor vitals
See plan
Wean oxygen as tolerated
Monitor mental status
Called son, left voicemail
Continue with diuresis
Replete potassium
Assessment / Plan
Assessment / Plan
General: Other (84y F in no acute distress.)
HEENT: Moist mucous membranes, PERRLA and Other (No JVD / HJR)
Respiratory: Other (Decreased BS bilaterally. Evident L posterior chest wall deformity.)
Cardiac: S1/S2 and Irregular Rhythm; No Murmur
GI: Soft, Non Tender, Non Distended and Normal Bowel Sounds
Musculoskeletal: No Clubbing, No Cyanosis and No Edema
Neuro: Awake, Alert and Nonfocal/grossly intact
Acute Hypoxemic Respiratory Failure
Required 6 L nasal cannula on admission, now on 4 L. Wean oxygen as tolerated
- This is very likely multifactorial with contributing components of HFrEF, atelectasis / immobility, significant chest wall deformity, pneumonia, CHF
CT chest negative for DVT however showed severe ground glass opacity in upper lobes, right middle lobe and superior segment of right lower lobe. Suspect bilateral pneumonia, inflammatory pneumonitis and pulmonary edema. Central cylindrical
bronchiectasis and diffuse bronchitis. Many subacute left posterior and lateral rib fractures
- Treat individual issues as noted below.
- Continue oxygen / supportive care.
Procal negative, discontinue further antibiotic; pulmonary following
Continue with IV diuresis
Acute on Chronic HFrEF
- Perhaps mild exacerbation of HFrEF.
- Recent decrease in Lasix dose. Difficult to monitor volume status with weight given recent trauma, decreased activity, decreased appetite, etc.
- IV Lasix daily for now
Cardiology following
Echo 02/21 with EF 43%
Hypokalemia
Replete
Moderate - Severe Chest Wall Deformity
Left Ribs 2-8 Fractures with Incomplete Healing
- Supportive care / pain control.
- Encourage activity.
Persistent Atrial Fibrillation
- Stable. Rate controlled at present.
- ANAMARIA done in June showed BIANCA thrombus.
- Maintained on Xarelto.
- Continue amiodarone and metoprolol.
Elevated LFTs
Monitor
Denies abdominal pain
Thoracic Aortic Aneurysm
- Under surveillance
- Follow-up CT findings.
Chronic Iron Deficiency Anemia
Chronic GI Blood Loss Anemia
- Hgb is stable at present on supplemental iron.
- EGD / colon unremarkable in the recent past.
- Capsule study planned but not yet successfully completed.
- Follow H&H. Monitor for any GI bleeding.
Hypothyroidism
- Continue current T4 replacement.
forgetful at times; unclear if this is her baseline. Called son,left voicemail
speech cleared however
MRI in 2017 with moderate atrophy; suspect cognitive impairment
DVT Prophylaxis: Currently on Xarelto. Difficult situation with falls / major trauma and evidence of chronic GI bleeding AND documented presence of BIANCA thrombus.
Code Status: Full
I spent a total of 52 minutes with the patient or on the floor. More than 50% of this time involved counseling and coordination of care.
Anticipated Discharge: > 48 hours
Subjective/Interval History
-
Date of Service: February 23, 2025
denies pain
Objective Data
-
Labs:
Laboratory Results
02/23/25
04:07
WBC 8.1
Hgb 12.4
Hct 38.6
Plt Count 473 H
Sodium 139
Potassium 3.4 L
Chloride 96 L
Carbon Dioxide 37 H
BUN 18 H
Creatinine 0.8
Glucose 99
Calcium 8.7
Total Bilirubin 0.9
AST 95 H
ALT 87 H
Alkaline Phosphatase 228 H
Vital Signs:
Vital Signs
Temp Pulse Resp BP Pulse Ox
97.9 F 95 16 136/104 97
02/23/25 11:00 02/23/25 09:15 02/23/25 09:15 02/23/25 08:38 02/23/25 08:45
I&O
02/22/25 02/23/25 02/24/25
06:59 06:59 06:59
Intake Total 100 / 100 50 / 50 250 / 250
Output Total 600 / 600 200 / 200 700 / 700
Balance -500 / -500 -150 / -150 -450 / -450
--- NOTE | 2025-02-23 15:23 | PTCARENOTE ---
verbal report received from Stewart CHISHOLM. pt currently in bedside recliner chair. pt transitioned to RA. pt is aaox3 however is confused/forgetful at times. chair alarm in place, call calvin in hand, pt currently watching TV. plan of care continues
to be followed.
--- NOTE | 2025-02-23 15:56 | W.PN.PUL3 ---
Today's Communication / Plan
-
Remains on 2L NC, wean as tolerated--will need eventual home O2 assessment
Continue IV diuresis
PCT negative, observe off Abx; trend WBC and monitor temperature
Encouraged IS, OOB, PT/OT evals
Pulmonary service will continue to follow along
Assessment
-
Patient is an 84y F with PMH significant for A-Fib on Xarelto, HFrEF, Iron deficiency anemia presenting to ED complaining of SOB and weakness. Patient suffered major fall with trauma about 7 weeks ago. She had fractures of 7 ribs on the left, 2
cervical vertebrae and sacrum. She was admitted at [facility] and discharged to rehab. About one week ago, she started to have notable dyspnea with exertion and increased complaints of left-sided chest pain. No significant cough, fevers / chills.
Patient suffered an additional fall on Sunday 02/18. She was seen in the ED here for evaluation. No new fractures were appreciated; however, it was noted that she had incompletely healed L rib fractures with moderate-severe chest wall deformity.
She has been increasingly inactive in the past week according to family. At home her SpO2 was noted to be extremely low (in the 70s) and patient was advised to present to the ED for evaluation. CT Chest obtained and negative for PE, she has
multifocal PNA noted. She was 84-87% on RA, placed on O2. She is being treated for CHF, proBNP 6070. We are consulted for hypoxemia.
Acute hypoxic respiratory failure
Multifocal opacities on CT/effusion
Acute CHF exacerbation
Recent history of Rib fractures with chest deformity on L
SOB
Progressive weakness
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
CHFrEF 35-40%
Atrial thrombus
Atrial fibrillation/Chronic anticoagulation
GERD without esophagitis
Hx of malignant neoplasm of pancreas
HTN
Chronic constipation
Unintentional weight loss
Anemia
Plan
Hypoxemia noted on arrival, O2 gabriel 84-87%
She is placed on 4L, weaned from 6L--continue weaning as tolerated � now on 2 L/min nasal cannula as of 02/23 and breathing comfortably
Does not have baseline use of O2 at home
Home O2 evaluation eventually will be needed
Prior history of lung disease is NOT noted--
Denies prior known history of lung disease in past, was a former trivial smoker overall <5 years.
No prior PFTs for review
Suspect patient has AE CHF with known reduced EF
CXR/CT obtained indicating worsening mosaicism and effusion, compared to recent CT in Nov where there was little to no parenchymal disease
It would be less likely related to new lung disease in <2 mos time period
proBNP >6000
Prior ECHO results are reviewed indicating reduced EF
She has h/o atrial thrombus/fib on chronic OAC, less likely PE
CTA was negative
She is on lasix IV, agree with this
Monitor I/Os
She is placed on abx wtih presumption this could be PNA
She has no fever/chills, WBC 11.4 (mildly noted) - 8.1 today on 02/[address] negative -- s/p Zosyn from 02/21 - 02/22/2025
Observe off ABx
Smoking history noted--trivial
Not at risk for lung disease
Multiple falls noted, may need to consider PT/OT
SNF placement
Encouraged IS
She has forgetfulness as well
Fall risk
Will need outpatient pulmonary evaluation in our office for PFTs and 6MWT
Reviewed with patient
Pulmonary service will continue to follow along
Diagnostic Data
ECHO 10/03/24- Normal left ventricular size. Mildly reduced systolic function. LV ejection fraction is 35-40% by visual assessment. Global hypokinesis. Mild left ventricular hypertrophy. Mild to moderate mitral regurgitation. Mild aortic
regurgitation. Mild to moderate tricuspid regurgitation. Estimated pulmonary artery pressure of 26 mmHg. Compared to the previous echo from Jun 2024, which was reviewed, EF was 20-25% at that time, otherwise no significant change.
CT Chest 02/20/25- 1. SEVERE GROUND-GLASS OPACITY in the upper lobes, right middle lobe, and superior segment of the right lower lobe which appears new from 12/21/2024. Diagnostic possibilities are (1) SEVERE BILATERAL PNEUMONIA, (2) an acute
inflammatory pneumonitis, or (3) noncardiogenic pulmonary edema.
2. Central cylindrical bronchiectasis and diffuse bronchitis throughout both lungs.
3. Small to moderate-sized chronic subpleural airspace consolidation in the right lower lobe.
4. Small left and minimal right pleural effusions.
5. Severe biatrial cardiac enlargement.
6. Fusiform ascending thoracic aortic aneurysm (4.2 cm diameter).
7. Many subacute left posterior and lateral rib fractures (left 2nd through 8th ribs) with callus formation around some of the fractures suggesting fracture healing.
8. Mild portal venous air in the liver.
9. Moderate thoracic kyphosis secondary to a chronic endplate fracture of T7.
CT Chest 12/21/24: No CTA evidence for an acute pulmonary thromboembolism. Large hematoma of the left lateral chest wall. Multiple acute, displaced left rib fractures superimposed upon other older chronic rib fractures with resultant chest wall
deformity. Small fracture of the left eighth transverse process. Small left and trace right pleural effusions.
Reports and relevant images were personally reviewed.
Total time spent today was 38 minutes for this encounter. Time includes reviewing laboratory test/imaging results, reviewing pertinent medical records, obtaining and reviewing medical history, performing an appropriate exam, ordering medications,
tests and procedures. Time also includes documentation of this encounter, coordinating patient care and communicating with other healthcare professionals. Total time does not include separately billed tests performed on this date of service.
Subjective Data
-
Date of Service:
Date of Service: February 23, 2025
Chief Complaint: Pulmonary Follow Up
Subjective:
Seen and evaluated today at bedside (late note entry). Resting in chair no acute distress. Heart rate 91 and saturating 95% on 2 L/min nasal cannula.
Review of Systems
General: Other (Negative unless mentioned above)
Objective Data
Data Reviewed
Vital Signs / I&O / Oxygen:
Vital Signs
Temp Pulse Resp BP Pulse Ox
97.9 F 95 16 136/104 97
02/23/25 11:00 02/23/25 09:15 02/23/25 09:15 02/23/25 08:38 02/23/25 08:45
Intake and Output
02/22/25 02/23/25 02/24/25
06:59 06:59 06:59
Intake Total 100 / 100 50 / 50 250 / 250
Output Total 600 / 600 200 / 200 400 / 400
Balance -500 / -500 -150 / -150 -150 / -150
SaO2 97
Nasal Cannula flow liters per 2
minute
Physical Exam
General: Comfortable and Other (NAD)
HEENT: Normocephalic, Anicteric and Moist Mucous Membranes
Cardiovascular: S1-S2 and Regular Rhythm
Respiratory: Crackles and Non-Labored Respirations
GI: Soft, Non Distended and Non Tender
Neurology: Awake, Alert, Oriented and No Motor Deficits
Skin: Warm, Dry and Good Color
Labs/Micro/Reports
Lab Data
02/23/25 04:07
02/23/25 04:07
Microbiology
02/20/25 22:44 Nose MRSA Screen - Final
No Methicillin Resistant Staphylococcus aureus isolated.
[2025-02-23] MEDS: LIPITOR 10 MG PO (17:17)
[2025-02-23] MEDS: TOPROL XL PO (20:06)
--- NOTE | 2025-02-23 20:19 | PTCARENOTE ---
Addendum entered by Mel Herman RN 02/23/25 21:56:
Bp- 94/69, Jamison TOVAR made aware. will hold Lasix as per advise
Original Note:
Patient's bp- 88/66 , MAP_-74. Patient is due to get Lasix 20 IV now. [facility] notified. placed patient on 2L n/c as patient's oxygen sat- 88% RA. currently 95% on 2L n/c. As per advise, will reassess BP in two hours.
[2025-02-23] MEDS: ELAVIL 10 MG PO (21:55)
[2025-02-23] MEDS: LASIX IV (21:57)
[2025-02-24] VITALS (11 sets, daily range): BP systolic 99–126; BP diastolic 68–95
[2025-02-24 03:37] LABS: Hematocrit 41.7 % (37.0-47.0); Hemoglobin 13.5 g/dL (12.0-16.0); Mean Corp Hgb Conc. 32.4 g/dL (33.0-37.0); Mean Corpuscular Volume 90.1 fL (81.0-99.0); Nucleated Red Blood Cells % 0 %; Platelet Count 491 10^3/uL (130-400); Red Cell Dist. Width 13.9 % (11.5-14.5)
[2025-02-24 04:01] LABS: ALT (SGPT) 99 U/L (0-35); AST (SGOT) 97 U/L (14-36); Albumin 3.7 g/dl (3.5-5.0); Alkaline Phosphatase 258 U/L (38-126); Blood Urea Nitrogen 22 mg/dl (7-17); Calcium 9.3 mg/dl (8.4-10.2); Carbon Dioxide 39 mmol/L (22-30); Chloride 96 mmol/L (98-107); Estimated Creatinine Clearance 37 ml/min; Glucose 99 mg/dl (70-99); Potassium 4.1 mmol/L (3.5-5.1); Sodium 141 mmol/L (135-145); Total Protein 7.1 g/dl (6.3-8.2); eGFR > 60.00
[2025-02-24] MEDS: SYNTHROID 75 MCG PO (05:31)
[2025-02-24] MEDS: FARXIGA 10 MG PO (08:45)
[2025-02-24] MEDS: XARELTO 15 MG PO (08:45)
[2025-02-24] MEDS: COZAAR 50 MG PO (08:45)
[2025-02-24] MEDS: PROTONIX 40 MG PO (08:45)
[2025-02-24] MEDS: TOPROL XL 50 MG PO ×2 (08:45→19:50)
[2025-02-24] MEDS: LASIX 20 MG IV ×2 (08:46→19:50)
[2025-02-24] MEDS: EFFEXOR XR 75 MG PO (08:46)
[2025-02-24] MEDS: PACERONE 200 MG PO (08:46)
--- NOTE | 2025-02-24 09:59 | W.PN.CARDCBS ---
Addendum entered and electronically signed by Adolfo Pate MD 02/24/25 10:50:
hold amiodarone with abnormal lft's
Original Note:
Today's Communication / Plan
-
Continue IV Lasix for hypoxemia although volume status is difficult to ascertain due to different weights between bed scale and standing scale
Impression / Plan
-
Primary manager investment banking: Dr. Rodriguez
Assessment:
Presentation with shortness of breath, hypoxia
Severe bilateral pneumonia by chest x-ray
Concern for acute on chronic heart failure with reduced EF
Persistent atrial fibrillation
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
Chronic amiodarone therapy
Presumed nonischemic cardiomyopathy, EF 30-35% by echo 09/2024
Hypertension
Hyperlipidemia
History of pancreatic mass status post Whipple surgery 1998 at [facility]
History of pulmonary embolism
Thoracic aortic aneurysm
Anxiety/depression
Hypothyroidism
Fall 11/2024 with 7 left-sided rib fractures and cervical spine and sacral fracture
Lexiscan nuclear stress test 07/26/2024: No perfusion abnormalities noted, EF 35%
Echo 06/06/2024: EF 20 to 25%, global hypokinesis with regional variability, mild to moderate MR, mild to moderate TR, PAP 50 to 55 mmHg, dilated ascending aorta measuring 3.9 cm
Echo 10/03/2024: EF 35 to 40%, global hypokinesis, mild LVH, mild to moderate MR, mild AR, mild to moderate TR, PAP 26 mmHg
Echocardiogram 02/21/2025: Ejection fraction 43%
Plan:
She remains on oxygen
Volume status difficult to ascertain as some weights have been on bed scales and others have been on standing scale
Will continue IV Lasix
Continue antibiotics
Continue Toprol, losartan and Farxiga added on 02/23 for reduced ejection fraction. Could eventually consider changing Cozaar to Entresto.
Will consider outpatient ANAMARIA to reassess for left atrial appendage thrombus and consider outpatient cardioversion.
Progress Note - Deputy Of Counter Intelligence
Subjective
Date of Service: February 24, 2025
No complaints
Objective
Labs:
02/24/25 03:25
02/24/25 03:25
Labs
Hgb 13.5 g/dL (12.0-16.0) 02/24/25 03:25
Hct 41.7 % (37.0-47.0) 02/24/25 03:25
Plt Count 491 10^3/uL (130-400) H 02/24/25 03:25
Sodium 141 mmol/L (135-145) 02/24/25 03:25
Potassium 4.1 mmol/L (3.5-5.1) 02/24/25 03:25
BUN 22 mg/dl (7-17) H 02/24/25 03:25
Creatinine 0.9 mg/dL (0.6-1.0) 02/24/25 03:25
Glucose 99 mg/dl (70-99) 02/24/25 03:25
Troponins
02/21/25
13:04
Troponin I 0.014
Vital Signs and I&O:
Vital Signs
Temp Pulse Resp BP Pulse Ox
98.5 F 85 34 105/77 95
02/24/25 07:56 02/24/25 08:46 02/24/25 08:42 02/24/25 08:46 02/24/25 08:42
Vital Signs
Temp Pulse Resp BP Pulse Ox
98.5 F 85 34 105/77 95
02/24/25 07:56 02/24/25 08:46 02/24/25 08:42 02/24/25 08:46 02/24/25 08:42
Intake & Output
02/22/25 02/23/25 02/24/25 02/25/25
06:59 06:59 06:59 06:59
Intake Total 100 / 100 50 / 50 1190 / 1190
Output Total 600 / 600 200 / 200 1250 / 1250
Balance -500 / -500 -150 / -150 -60 / -60
Physical Exam
Physical Exam
General: Well developed, well nourished in NAD.
Neck: Supple, no JVD, HJR, carotids +2 B/L, no bruits bilaterally.
Heart: Non displaced PMI, irregular, no murmurs, No S3, S4, no rubs.
Lungs: Scattered rhonchi
Extremities: No clubbing, cyanosis or edema bilaterally.
Neuro: Grossly nonfocal, awake, alert and oriented x3.
--- NOTE | 2025-02-24 12:21 | W.PN.HOSP.TC ---
Today's Communication/Plan
-
Monitor vitals
See plan
Continue with IV diuresis
Hold amiodarone
Wean oxygen as tolerated, currently on 2 L
Transfer to telemetry
Assessment / Plan
Assessment / Plan
General: Other (84y F in no acute distress.)
HEENT: Moist mucous membranes, PERRLA and Other (No JVD / HJR)
Respiratory: Other (Decreased BS bilaterally. Evident L posterior chest wall deformity.)
Cardiac: S1/S2 and Irregular Rhythm; No Murmur
GI: Soft, Non Tender, Non Distended and Normal Bowel Sounds
Musculoskeletal: No Clubbing, No Cyanosis and No Edema
Neuro: Awake, Alert and Nonfocal/grossly intact
Acute Hypoxemic Respiratory Failure
Required 6 L nasal cannula on admission, now on 2 L. Wean oxygen as tolerated
- This is very likely multifactorial with contributing components of HFrEF, atelectasis / immobility, significant chest wall deformity, pneumonia, CHF
CT chest negative for DVT however showed severe ground glass opacity in upper lobes, right middle lobe and superior segment of right lower lobe. Suspect bilateral pneumonia, inflammatory pneumonitis and pulmonary edema. Central cylindrical
bronchiectasis and diffuse bronchitis. Many subacute left posterior and lateral rib fractures
- Treat individual issues as noted below.
- Continue oxygen / supportive care.
Procal negative, discontinue further antibiotic; pulmonary following
Continue with IV diuresis
Acute on Chronic HFrEF
- Perhaps mild exacerbation of HFrEF.
- Recent decrease in Lasix dose. Difficult to monitor volume status with weight given recent trauma, decreased activity, decreased appetite, etc.
- IV Lasix daily for now
Cardiology following
Echo 02/21 with EF 43%
Hypokalemia
Resolved
Moderate - Severe Chest Wall Deformity
Left Ribs 2-8 Fractures with Incomplete Healing
- Supportive care / pain control.
- Encourage activity.
Persistent Atrial Fibrillation
- Stable. Rate controlled at present.
- ANAMARIA done in June showed BIANCA thrombus.
- Maintained on Xarelto.
- Continue amiodarone and metoprolol.
Elevated LFTs
Monitor
Denies abdominal pain
Discussed with cardiology, holding amiodarone
Thoracic Aortic Aneurysm
- Under surveillance
- Follow-up CT findings.
Chronic Iron Deficiency Anemia
Chronic GI Blood Loss Anemia
- Hgb is stable at present on supplemental iron.
- EGD / colon unremarkable in the recent past.
- Capsule study planned but not yet successfully completed.
- Follow H&H. Monitor for any GI bleeding.
Hypothyroidism
- Continue current T4 replacement.
forgetful at times; discussed with son and he reported that patient does have cognitive impairment
MRI in 2017 with moderate atrophy; suspect cognitive impairment
DVT Prophylaxis: Currently on Xarelto. Difficult situation with falls / major trauma and evidence of chronic GI bleeding AND documented presence of BIANCA thrombus.
Code Status: Full
I spent a total of 52 minutes with the patient or on the floor. More than 50% of this time involved counseling and coordination of care.
Anticipated Discharge: 24 - 48 hours
Subjective/Interval History
-
Date of Service: February 24, 2025
Denies pain
Objective Data
-
Labs:
Laboratory Results
02/24/25
03:25
WBC 7.9
Hgb 13.5
Hct 41.7
Plt Count 491 H
Sodium 141
Potassium 4.1
Chloride 96 L
Carbon Dioxide 39 H
BUN 22 H
Creatinine 0.9
Glucose 99
Calcium 9.3
Total Bilirubin 0.7
AST 97 H
ALT 99 H
Alkaline Phosphatase 258 H
Vital Signs:
Vital Signs
Temp Pulse Resp BP Pulse Ox
98.5 F 87 18 114/85 98
02/24/25 07:56 02/24/25 10:00 02/24/25 10:00 02/24/25 10:00 02/24/25 10:00
I&O
02/23/25 02/24/25 02/25/25
06:59 06:59 06:59
Intake Total 50 / 50 1190 / 1190 480 / 480
Output Total 200 / 200 1250 / 1250
Balance -150 / -150 -60 / -60 480 / 480
--- NOTE | 2025-02-24 14:18 | PTCARENOTE ---
Patient AOx2-3. Confused and forgetful. Bed and chair alarm on and audible. A fib on the monitor. BP stable. Weaned patient to RA with SpO2 greater than 92%. Incontinent to bowel and bladder. Tolerating oral diet. Call calvin within reach, bed in
lowest position, and bed of wheels locked.
--- NOTE | 2025-02-24 14:22 | W.PN.PUL3 ---
Today's Communication / Plan
-
Now on room air and breathing comfortably; SpO2 is <96% on room air, hence rec'd home O2 assessment prior to discharge
Continue IV diuresis
PCT negative, observe off Abx; trend WBC and monitor temperature
Encouraged IS, OOB, PT/OT evals
Pulmonary service will continue to follow along
Assessment
-
Patient is an 84y F with PMH significant for A-Fib on Xarelto, HFrEF, Iron deficiency anemia presenting to ED complaining of SOB and weakness. Patient suffered major fall with trauma about 7 weeks ago. She had fractures of 7 ribs on the left, 2
cervical vertebrae and sacrum. She was admitted at [facility] and discharged to rehab. About one week ago, she started to have notable dyspnea with exertion and increased complaints of left-sided chest pain. No significant cough, fevers / chills.
Patient suffered an additional fall on Sunday 02/18. She was seen in the ED here for evaluation. No new fractures were appreciated; however, it was noted that she had incompletely healed L rib fractures with moderate-severe chest wall deformity.
She has been increasingly inactive in the past week according to family. At home her SpO2 was noted to be extremely low (in the 70s) and patient was advised to present to the ED for evaluation. CT Chest obtained and negative for PE, she has
multifocal PNA noted. She was 84-87% on RA, placed on O2. She is being treated for CHF, proBNP 6070. We are consulted for hypoxemia.
Acute hypoxic respiratory failure
Multifocal opacities on CT/effusion
Acute CHF exacerbation
Recent history of Rib fractures with chest deformity on L
SOB
Progressive weakness
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
CHFrEF 35-40%
Atrial thrombus
Atrial fibrillation/Chronic anticoagulation
GERD without esophagitis
Hx of malignant neoplasm of pancreas
HTN
Chronic constipation
Unintentional weight loss
Anemia
Plan
Hypoxemia noted on arrival, O2 gabriel 84-87%
She is placed on 4L, weaned from 6L--continue weaning as tolerated � now on RA as of 02/24 and breathing comfortably
Does not have baseline use of O2 at home
Home O2 evaluation prior to discharge
Prior history of lung disease is NOT noted--
Denies prior known history of lung disease in past, was a former trivial smoker overall <5 years.
No prior PFTs for review
Suspect patient has AE CHF with known reduced EF
CXR/CT obtained indicating worsening mosaicism and effusion, compared to recent CT in Nov where there was little to no parenchymal disease
It would be less likely related to new lung disease in <2 mos time period
proBNP >6000
Prior ECHO results are reviewed indicating reduced EF
She has h/o atrial thrombus/fib on chronic OAC, less likely PE
CTA was negative
She is on lasix IV, agree with this
Monitor I/Os
She is placed on abx wtih presumption this could be PNA
She has no fever/chills, WBC 11.4 (mildly noted) - 7.9 today on 02/[address] negative -- s/p Zosyn from 02/21 - 02/22/2025
Observe off ABx
Smoking history noted--trivial
Not at risk for lung disease
Multiple falls noted, may need to consider PT/OT
SNF placement
Encouraged IS
She has forgetfulness as well
Fall risk
Will need outpatient pulmonary evaluation in our office for PFTs and 6MWT
Reviewed with patient
Pulmonary service will continue to follow along
Diagnostic Data
ECHO 10/03/24- Normal left ventricular size. Mildly reduced systolic function. LV ejection fraction is 35-40% by visual assessment. Global hypokinesis. Mild left ventricular hypertrophy. Mild to moderate mitral regurgitation. Mild aortic
regurgitation. Mild to moderate tricuspid regurgitation. Estimated pulmonary artery pressure of 26 mmHg. Compared to the previous echo from Jun 2024, which was reviewed, EF was 20-25% at that time, otherwise no significant change.
CT Chest 02/20/25- 1. SEVERE GROUND-GLASS OPACITY in the upper lobes, right middle lobe, and superior segment of the right lower lobe which appears new from 12/21/2024. Diagnostic possibilities are (1) SEVERE BILATERAL PNEUMONIA, (2) an acute
inflammatory pneumonitis, or (3) noncardiogenic pulmonary edema.
2. Central cylindrical bronchiectasis and diffuse bronchitis throughout both lungs.
3. Small to moderate-sized chronic subpleural airspace consolidation in the right lower lobe.
4. Small left and minimal right pleural effusions.
5. Severe biatrial cardiac enlargement.
6. Fusiform ascending thoracic aortic aneurysm (4.2 cm diameter).
7. Many subacute left posterior and lateral rib fractures (left 2nd through 8th ribs) with callus formation around some of the fractures suggesting fracture healing.
8. Mild portal venous air in the liver.
9. Moderate thoracic kyphosis secondary to a chronic endplate fracture of T7.
CT Chest 12/21/24: No CTA evidence for an acute pulmonary thromboembolism. Large hematoma of the left lateral chest wall. Multiple acute, displaced left rib fractures superimposed upon other older chronic rib fractures with resultant chest wall
deformity. Small fracture of the left eighth transverse process. Small left and trace right pleural effusions.
Reports and relevant images were personally reviewed.
Total time spent today was 41 minutes for this encounter. Time includes reviewing laboratory test/imaging results, reviewing pertinent medical records, obtaining and reviewing medical history, performing an appropriate exam, ordering medications,
tests and procedures. Time also includes documentation of this encounter, coordinating patient care and communicating with other healthcare professionals. Total time does not include separately billed tests performed on this date of service.
Subjective Data
-
Date of Service:
Date of Service: February 24, 2025
Chief Complaint: Pulmonary Follow Up
Subjective:
Patient seen today at bedside (late note entry). Afebrile overnight. On room air, saturating 93%.
Review of Systems
General: Other (Negative unless mentioned above)
Objective Data
Data Reviewed
Vital Signs / I&O / Oxygen:
Vital Signs
Temp Pulse Resp BP Pulse Ox
98.1 F 85 17 112/94 94
02/24/25 03:27 02/24/25 06:00 02/24/25 06:00 02/24/25 06:00 02/24/25 06:00
Intake and Output
02/23/25 02/24/25 02/25/25
06:59 06:59 06:59
Intake Total 50 / 50 1190 / 1190
Output Total 200 / 200 1250 / 1250
Balance -150 / -150 -60 / -60
SaO2 94
Nasal Cannula flow liters per 2
minute
Physical Exam
General: Comfortable and Other (NAD)
HEENT: Normocephalic, Anicteric and Moist Mucous Membranes
Cardiovascular: S1-S2 and Regular Rhythm
Respiratory: Crackles and Non-Labored Respirations
GI: Soft, Non Distended and Non Tender
Neurology: Awake, Alert, Oriented and No Motor Deficits
Skin: Warm, Dry and Good Color
Labs/Micro/Reports
Lab Data
02/24/25 03:25
02/24/25 03:25
Microbiology
02/20/25 22:44 Nose MRSA Screen - Final
No Methicillin Resistant Staphylococcus aureus isolated.
--- NOTE | 2025-02-24 14:32 | PTCARENOTE ---
Verbal report given to 4E RN. Transferred in wheelchair by PCT. Patient belongings transferred with patient.
--- NOTE | 2025-02-24 15:34 | PTCARENOTE ---
Received patient from IMU. Patient AAOx2, no c/o pain, call calvin in reach. Bed alarm placed.
[2025-02-24] MEDS: LIPITOR 10 MG PO (17:38)
[2025-02-24] MEDS: ELAVIL 10 MG PO (22:12)
[2025-02-25 03:40] VITALS: BP 112/74
[2025-02-25 05:47] VITALS: BMI 19.4
[2025-02-25 06:00] VITALS: BMI 19.4
[2025-02-25] MEDS: SYNTHROID 75 MCG PO (06:24)
[2025-02-25 08:22] LABS: Hematocrit 41.0 % (37.0-47.0); Hemoglobin 12.9 g/dL (12.0-16.0); Mean Corp Hgb Conc. 31.5 g/dL (33.0-37.0); Mean Corpuscular Volume 91.9 fL (81.0-99.0); Nucleated Red Blood Cells % 0 %; Platelet Count 492 10^3/uL (130-400); Red Cell Dist. Width 13.7 % (11.5-14.5)
[2025-02-25 08:27] VITALS: BP 120/83
[2025-02-25 08:46] LABS: ALT (SGPT) 91 U/L (0-35); AST (SGOT) 90 U/L (14-36); Albumin 3.4 g/dl (3.5-5.0); Alkaline Phosphatase 239 U/L (38-126); Blood Urea Nitrogen 18 mg/dl (7-17); Calcium 9.2 mg/dl (8.4-10.2); Carbon Dioxide 38 mmol/L (22-30); Chloride 98 mmol/L (98-107); Estimated Creatinine Clearance 40 ml/min; Glucose 94 mg/dl (70-99); Potassium 3.5 mmol/L (3.5-5.1); Sodium 138 mmol/L (135-145); Total Protein 6.6 g/dl (6.3-8.2); eGFR > 60.00
[2025-02-25] MEDS: XARELTO 15 MG PO (09:36)
[2025-02-25] MEDS: FARXIGA 10 MG PO (09:37)
[2025-02-25] MEDS: LASIX 20 MG IV (09:37)
[2025-02-25] MEDS: PROTONIX 40 MG PO (09:37)
[2025-02-25] MEDS: TOPROL XL 50 MG PO ×2 (09:37→19:49)
[2025-02-25] MEDS: COZAAR 50 MG PO (09:37)
[2025-02-25] MEDS: EFFEXOR XR 75 MG PO (09:37)
--- NOTE | 2025-02-25 11:04 | W.PN.PUL3 ---
Today's Communication / Plan
-
- F/u CXR in AM
- Stay off Amiodarone
- Might need to consider RHC. Defer to cardiology service.
- Initiate prednisone 40 mg daily
Assessment
-
Patient is an 84y F with PMH significant for A-Fib on Xarelto, HFrEF, Iron deficiency anemia presenting to ED complaining of SOB and weakness. Patient suffered major fall with trauma about 7 weeks ago. She had fractures of 7 ribs on the left, 2
cervical vertebrae and sacrum. She was admitted at [facility] and discharged to rehab. About one week ago, she started to have notable dyspnea with exertion and increased complaints of left-sided chest pain. No significant cough, fevers / chills.
Patient suffered an additional fall on Sunday 02/18. She was seen in the ED here for evaluation. No new fractures were appreciated; however, it was noted that she had incompletely healed L rib fractures with moderate-severe chest wall deformity.
She has been increasingly inactive in the past week according to family. At home her SpO2 was noted to be extremely low (in the 70s) and patient was advised to present to the ED for evaluation. CT Chest obtained and negative for PE, she has
multifocal PNA noted. She was 84-87% on RA, placed on O2. She is being treated for CHF, proBNP 6070. We are consulted for hypoxemia.
Acute hypoxic respiratory failure
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
Recent history of Rib fractures with chest deformity on L
SOB
Progressive weakness
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
Atrial thrombus
Atrial fibrillation/Chronic anticoagulation
GERD without esophagitis
Hx of malignant neoplasm of pancreas
HTN
Chronic constipation
Unintentional weight loss
Anemia
Plan
-Continue supplemental oxygen, target SpO2 greater than 90%
-Procalcitonin is negative, off antibiotic, clinically less likely acute infectious pneumonia.
-BNP elevated, however patient has primarily upper and middle lobe predominant interstitial infiltrates and appears dry on clinical exam. 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
related interstitial pneumonitis/ILD
-Stay off amiodarone, initiate prednisone 40 mg daily. Abnormal LFTs also noted
-Might need right heart catheterization for further evaluation in case patient is indeed intravascularly volume overloaded even though she has no orthopnea, no pedal edema on exam. Pulmonary crackles could certainly be related to ILD also.
-Monitor off antibiotics
- Follow-up chest x-ray in a.m.
Prior history of lung disease is NOT noted--
Denies prior known history of lung disease in past, was a former trivial smoker overall <5 years.
No prior PFTs for review
proBNP >6000
She has h/o atrial thrombus/fib on chronic OAC, less likely PE
CTA was negative
She is on lasix IV, agree with this
Monitor I/Os
Smoking history noted--trivial
Not at risk for lung disease
Multiple falls noted, may need to consider PT/OT
SNF placement
Encouraged IS
She has forgetfulness as well
Fall risk
Will need outpatient pulmonary evaluation in our office for PFTs and 6MWT
Reviewed with patient
Pulmonary service will continue to follow along
Diagnostic Data
ECHO 10/03/24- Normal left ventricular size. Mildly reduced systolic function. LV ejection fraction is 35-40% by visual assessment. Global hypokinesis. Mild left ventricular hypertrophy. Mild to moderate mitral regurgitation. Mild aortic
regurgitation. Mild to moderate tricuspid regurgitation. Estimated pulmonary artery pressure of 26 mmHg. Compared to the previous echo from Jun 2024, which was reviewed, EF was 20-25% at that time, otherwise no significant change.
CT Chest 02/20/25- 1. SEVERE GROUND-GLASS OPACITY in the upper lobes, right middle lobe, and superior segment of the right lower lobe which appears new from 12/21/2024. Diagnostic possibilities are (1) SEVERE BILATERAL PNEUMONIA, (2) an acute
inflammatory pneumonitis, or (3) noncardiogenic pulmonary edema.
2. Central cylindrical bronchiectasis and diffuse bronchitis throughout both lungs.
3. Small to moderate-sized chronic subpleural airspace consolidation in the right lower lobe.
4. Small left and minimal right pleural effusions.
5. Severe biatrial cardiac enlargement.
6. Fusiform ascending thoracic aortic aneurysm (4.2 cm diameter).
7. Many subacute left posterior and lateral rib fractures (left 2nd through 8th ribs) with callus formation around some of the fractures suggesting fracture healing.
8. Mild portal venous air in the liver.
9. Moderate thoracic kyphosis secondary to a chronic endplate fracture of T7.
CT Chest 12/21/24: No CTA evidence for an acute pulmonary thromboembolism. Large hematoma of the left lateral chest wall. Multiple acute, displaced left rib fractures superimposed upon other older chronic rib fractures with resultant chest wall
deformity. Small fracture of the left eighth transverse process. Small left and trace right pleural effusions.
Reports and relevant images were personally reviewed.
Total time spent today was 38 minutes for this encounter. Time includes reviewing laboratory test/imaging results, reviewing pertinent medical records, obtaining and reviewing medical history, performing an appropriate exam, ordering medications,
tests and procedures. Time also includes documentation of this encounter, coordinating patient care and communicating with other healthcare professionals. Total time does not include separately billed tests performed on this date of service.
Subjective Data
-
Date of Service:
Date of Service: February 25, 2025
Chief Complaint: Pulmonary Follow Up
Subjective:
Patient comfortably sitting in bed in no acute distress.
Review of Systems
Genitourinary: Other (All 14 systems reviewed and negative except as stated above in the history of present illness.)
Objective Data
Data Reviewed
Vital Signs / I&O / Oxygen:
Vital Signs
Temp Pulse Resp BP Pulse Ox
97.9 F 96 18 120/83 94
02/25/25 08:27 02/25/25 08:27 02/25/25 08:27 02/25/25 08:27 02/25/25 08:27
Intake and Output
02/24/25 02/25/25 02/26/25
06:59 06:59 06:59
Intake Total 1190 / 1190 900 / 900 240 / 240
Output Total 1250 / 1250 600 / 600
Balance -60 / -60 300 / 300 240 / 240
SaO2 94
Nasal Cannula flow liters per 2
minute
Physical Exam
General: Comfortable and Other (NAD)
HEENT: Normocephalic, Anicteric and Moist Mucous Membranes
Cardiovascular: S1-S2 and Regular Rhythm
Respiratory: Crackles and Non-Labored Respirations
GI: Soft, Non Distended and Non Tender
Neurology: Awake, Alert, Oriented and No Motor Deficits
Skin: Warm, Dry and Good Color
Labs/Micro/Reports
Lab Data
02/25/25 08:00
02/25/25 08:00
Microbiology
02/20/25 22:44 Nose MRSA Screen - Final
No Methicillin Resistant Staphylococcus aureus isolated.
--- NOTE | 2025-02-25 11:34 | W.PN.HOSP.TC ---
Today's Communication/Plan
-
patient is off O2 still with crackles, but seems dry clinically - discussing with card and pulm
Assessment / Plan
Assessment / Plan
84yo F with PMHx of CHF, pancreatic cancer (s/p Whipple in 1998), insomnia, hypothyroidism, HTN, afib came with worsening SOB found concern for pneumonia and CHF on CT, however with negative procalcitonin Abx stopped as agreed with pulm. Cardiology
assisted in diuresis. 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
A/P:
#Acute hypoxic respiratory failure on admission
#Acute on chronic HFmrEF
fusiform aneurysmal dilatation of the ascending thoracic aorta measuring 4.2 cm
Abx stopped
Pulm follows: concern for amiodarone induced
Stop Amiodarone
Cardiology follows
LAsix, daily weight, follow electrolytes and Cr
Echo: EF 43%
Consideration for RHC vs trial of steroids as of 02/25/[address] with new large amount of ground-glass opacity b/l
#small to moderate-sized chronic subpleural airspace consolidation in the posterior and lateral basilar segment of the right lower lobe
unchanged
#L 2-8 rib Fx
PT/OT
pain control
#mild amount of portal venous air in the peripheral aspect of the liver
pneumobilia status post Whipple - cronic, seen on MRCP in 2023
#Transaminitis
#Elevated alk.phos
no RUQ pain
seems subacute started on this admission
Amiodarone toxicity?
Might need repeated MRCP
#Persistent Afib
tele
cont rate control and Xarelto as per Card
#SY
#Hx of GIB
GI planned for outpatient capsule
S/P EGD and colonoscopy in Nov 2024
#Hypothyroidism
#Anxiety/depression d/o
#Essential HTN
#HLD
#Insomnia
cont home meds
DVT ppx Xarelto
Full code
I have spent at least 58min reviwing chart, test results, communication with consultants and providing direct patient care
Anticipated Discharge: > 48 hours
Subjective/Interval History
-
Date of Service: February 25, 2025
Objective Data
-
Labs:
Laboratory Results
02/25/25
08:00
WBC 6.5
Hgb 12.9
Hct 41.0
Plt Count 492 H
Sodium 138
Potassium 3.5
Chloride 98
Carbon Dioxide 38 H
BUN 18 H
Creatinine 0.8
Glucose 94
Calcium 9.2
Total Bilirubin 0.7
AST 90 H
ALT 91 H
Alkaline Phosphatase 239 H
Vital Signs:
Vital Signs
Temp Pulse Resp BP Pulse Ox
97.9 F 96 18 120/83 94
02/25/25 08:27 02/25/25 08:27 02/25/25 08:27 02/25/25 08:27 02/25/25 08:27
I&O
02/24/25 02/25/25 02/26/25
06:59 06:59 06:59
Intake Total 1190 / 1190 900 / 900 240 / 240
Output Total 1250 / 1250 600 / 600
Balance -60 / -60 300 / 300 240 / 240
Review of Systems
-
History Source: Patient
All other systems: Reviewed and negative
Physical Exam
-
General: No Apparent Distress
HEENT: Normocephalic
Respiratory: Crackles
GI: Soft, Nontender and Nondistended
Musculoskeletal: No Clubbing, No Cyanosis and No Edema
Neuro: Awake, Alert, Oriented and AO x 3
Psych: Calm
[2025-02-25 11:56] VITALS: BP 95/65
--- NOTE | 2025-02-25 12:30 | CM ---
Chart reviewed. Cont IV Lasix. Patient is off O2 at this time.
Cardiology and pulmonology following
Therapy recommending SNF at d/c. Spoke w/ patient's son, Elan, who stated he discussed w/ patient and they are agreeable to plan for SNF when patient is medically stable. Elan requesting referral to [facility] as patient has been there
before. encouraged Elan to explore at least 2 more facilities in case [facility] does not have any bed availability, Elan was receptive to this.
Referral sent to [facility]
Patient will need insurance auth prior to d/c
Plan: SNF
--- NOTE | 2025-02-25 12:45 | PTCARENOTE ---
Patient OOB to chair with assist. Patient's gait is unsteady, bed and chair alarm maintained. Patient is oriented x3, but quite forgetful. Patient has no c/o pain at present, c/o stiffness in her back when standing and denies need for pain med.
--- NOTE | 2025-02-25 15:33 | W.PN.CARDCBS ---
Addendum entered and electronically signed by Hema Jimenez MD 02/25/25 18:18:
84-year-old woman with persistent atrial fibrillation and left atrial appendage thrombus admitted for suspected acute on chronic HFrEF versus amiodarone pulmonary toxicity. proBNP 6000
Now amiodarone held related to elevated LFTs and concerns regarding amiodarone pulmonary toxicity.
PMH/PSH: Left atrial appendage thrombus, persistent atrial fibrillation, presumed nonischemic cardiomyopathy, hypertension, hyperlipidemia, history of Whipple 1998, history of pulmonary embolus, thoracic aortic aneurysm, anxiety/depression,
hypothyroidism, fall with rib and cervical spine injury November
Medications amitriptyline, atorvastatin 10 mg a day, levothyroxine 75 mcg daily, metoprolol ER 50 mg twice daily, rivaroxaban 15 mg daily, Effexor, pantoprazole, furosemide 20 mg twice daily, losartan 50 a day, dapagliflozin 10 mg a day. Amiodarone
stopped
120/83, pulse 96, respiratory rate 18, afebrile, weight is 49.6 kg, down 1.7 kg, pleasant, offers no complaints, lungs are relatively clear, no obvious murmurs,No edema JVD okay at this point,
Hemoglobin 12.9, platelets 492, BUN and creatinine 18 and 0.8, potassium 3.5, AST 90, ALT 91
Echo 02/21/2025: EF 43%, severely dilated left atrium, normal RV, severely dilated RA, pulmonary artery systolic pressure is 25, in September E/E' normal
Impression:
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
Possible acute on chronic heart failure with mildly reduced EF, suspect nonischemic
History of Whipple procedure 1998
History of pulmonary embolus
Anxiety/depression
Hypothyroidism
Fall with rib fractures and cervical injury
History of thoracic aortic aneurysm
Persistent atrial fibrillation
Left atrial appendage thrombus
Hypertension
Hyperlipidemia
Other diagnoses as below. Reviewed in detail and agree unless otherwise specified.
Plan:
At this time, I do not think that heart failure is the major cpr ambulance driver of her symptoms at this time.
Suspicion for amiodarone pulmonary toxicity is fairly high. LFTs are up, and pulmonary findings are also potentially consistent with amiodarone as a culprit.
Amiodarone has been discontinued, continue supportive care. Whether there is a role for any intervention will defer to pulmonary.
Her creatinine is still acceptable. Will switch her to oral furosemide 20 mg a day. Outpatient had been 20 mg 3 days a week.
Continue rivaroxaban for left atrial appendage thrombus.
Heart rate seems controlled.
For heart failure with mildly reduced EF continue dapagliflozin. Could consider spironolactone.
Chest x-ray and proBNP in a.m.
We will continue to follow.
Original Note:
Today's Communication / Plan
-
cont IV diuresis
check proBNP in am
getting CXR in am
Impression / Plan
-
Primary metal cut off saw operator: Dr. Rodriguez
Assessment:
Presentation with shortness of breath, hypoxia
Severe bilateral pneumonia by chest x-ray
Concern for acute on chronic heart failure with reduced EF
Persistent atrial fibrillation
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
Presumed nonischemic cardiomyopathy, EF 30-35% by echo 09/2024
Hypertension
Hyperlipidemia
History of pancreatic mass status post Whipple surgery 1998 at [facility] [place]
History of pulmonary embolism
Thoracic aortic aneurysm
Anxiety/depression
Hypothyroidism
Fall 11/2024 with 7 left-sided rib fractures and cervical spine and sacral fracture
Lexiscan nuclear stress test 07/26/2024: No perfusion abnormalities noted, EF 35%
Echo 06/06/2024: EF 20 to 25%, global hypokinesis with regional variability, mild to moderate MR, mild to moderate TR, PAP 50 to 55 mmHg, dilated ascending aorta measuring 3.9 cm
Echo 10/03/2024: EF 35 to 40%, global hypokinesis, mild LVH, mild to moderate MR, mild AR, mild to moderate TR, PAP 26 mmHg
Echocardiogram 02/21/2025: Ejection fraction 43%, RV size and function within normal limits when compared with echo 09/2024 EF is slightly improved
Plan:
Acute on chronic heart failure with reduced EF:
-Weight on standing scale down 4 pounds overnight to 109 pounds. Difficult to assess weights from earlier in admission as they were on a bed scale but overall weight has decreased, likely down about 10 pounds
- She remains on Lasix 20 mg IV twice daily. Creatinine has been stable 0.8�0.9
-She is off oxygen with oxygen saturation 93 to 95%
-repeat proBNP in am-I ordered
-Continue Toprol, losartan. Farxiga added on 02/23 for reduced ejection fraction. Could eventually consider changing losartan to Entresto
-EF stable/slightly improved at 43% on echo 02/21/2025
- On Lasix 20 mg Tuesday -Tuesday -Tuesday in outpatient setting
A-fib:
-Continue oral anticoagulation with rivaroxaban 15 mg daily
-Amiodarone on hold due to elevated LFTs as well as concerns for amiodarone related ILD/pneumonitits.
-Rate control with Toprol 50 mg twice daily
-Telemetry personally reviewed: A-fib 68-96bpm
-There has been consideration for outpatient ANAMARIA to reassess her known left atrial appendage thrombus which was present on ANAMARIA 04/20/2024 and 06/21/2024. Thrombus has not been reassessed since 06/2024 ANAMARIA. If no thrombus on repeat ANAMARIA, t/c
cardiovert.
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
-pulm following
-Chest CT w/ multifocal opacities
-Pt was started on Prednisone 02/25
-repeat CXR in a.m.
Progress Note - Principal Ios Developer
Subjective
Date of Service: February 25, 2025
worried about nail beds being pale
walked around hallway, felt fatigued, no SOB
Objective
Labs:
02/25/25 08:00
02/25/25 08:00
Labs
Hgb 12.9 g/dL (12.0-16.0) 02/25/25 08:00
Hct 41.0 % (37.0-47.0) 02/25/25 08:00
Plt Count 492 10^3/uL (130-400) H 02/25/25 08:00
Sodium 138 mmol/L (135-145) 02/25/25 08:00
Potassium 3.5 mmol/L (3.5-5.1) 02/25/25 08:00
BUN 18 mg/dl (7-17) H 02/25/25 08:00
Creatinine 0.8 mg/dL (0.6-1.0) 02/25/25 08:00
Glucose 94 mg/dl (70-99) 02/25/25 08:00
Vital Signs and I&O:
Vital Signs
Temp Pulse Resp BP Pulse Ox
97.9 F 95 18 95/65 95
02/25/25 11:56 02/25/25 11:56 02/25/25 11:56 02/25/25 11:56 02/25/25 11:56
Vital Signs
Temp Pulse Resp BP Pulse Ox
97.9 F 95 18 95/65 95
02/25/25 11:56 02/25/25 11:56 02/25/25 11:56 02/25/25 11:56 02/25/25 11:56
Intake & Output
02/23/25 02/24/25 02/25/25 02/26/25
06:59 06:59 06:59 06:59
Intake Total 50 / 50 1190 / 1190 900 / 900 240 / 240
Output Total 200 / 200 1250 / 1250 600 / 600
Balance -150 / -150 -60 / -60 300 / 300 240 / 240
Physical Exam
Physical Exam
GEN: No distress, awake, Ox3
HEENT: supple, anicteric, mmm
LUNGS: rales L base
CV: irreg, irreg / syst LSB, no murmur
ABD: soft, BS+, NT/ND
EXT: No edema
NEURO: Gross non-focal
SKIN: nail beds pale
[2025-02-25 15:42] VITALS: BP 95/65
[2025-02-25] MEDS: DELTASONE 40 MG PO (16:30)
[2025-02-25] MEDS: LIPITOR 10 MG PO (16:30)
[2025-02-25] MEDS: ELAVIL 10 MG PO (19:49)
[2025-02-25 20:00] VITALS: BP 140/98
[2025-02-25 23:28] VITALS: BP 108/76
[2025-02-26] VITALS (7 sets, daily range): BP systolic 92–136; BP diastolic 17–96; PULSE 93; O2SAT 97; BMI 19.8
[2025-02-26] MEDS: SYNTHROID 75 MCG PO (05:22)
[2025-02-26 08:00] LABS: Hematocrit 40.9 % (37.0-47.0); Hemoglobin 12.6 g/dL (12.0-16.0); Mean Corp Hgb Conc. 30.8 g/dL (33.0-37.0); Mean Corpuscular Volume 93.4 fL (81.0-99.0); Nucleated Red Blood Cells % 0 %; Platelet Count 492 10^3/uL (130-400); Red Cell Dist. Width 13.6 % (11.5-14.5)
[2025-02-26 08:36] LABS: ALT (SGPT) 76 U/L (0-35); AST (SGOT) 65 U/L (14-36); Albumin 3.4 g/dl (3.5-5.0); Alkaline Phosphatase 219 U/L (38-126); Blood Urea Nitrogen 22 mg/dl (7-17); Calcium 9.4 mg/dl (8.4-10.2); Carbon Dioxide 33 mmol/L (22-30); Chloride 99 mmol/L (98-107); Estimated Creatinine Clearance 47 ml/min; Glucose 120 mg/dl (70-99); Potassium 3.8 mmol/L (3.5-5.1); Sodium 139 mmol/L (135-145); Total Protein 6.6 g/dl (6.3-8.2); eGFR > 60.00
[2025-02-26] MEDS: DELTASONE 40 MG PO (09:17)
[2025-02-26] MEDS: COZAAR 50 MG PO (09:17)
[2025-02-26] MEDS: PROTONIX 40 MG PO (09:17)
[2025-02-26] MEDS: XARELTO 15 MG PO (09:17)
[2025-02-26] MEDS: TOPROL XL 50 MG PO ×2 (09:18→19:51)
[2025-02-26] MEDS: EFFEXOR XR 75 MG PO (09:18)
[2025-02-26] MEDS: LASIX 20 MG PO (09:18)
[2025-02-26] MEDS: FARXIGA 10 MG PO (09:19)
--- NOTE | 2025-02-26 11:22 | W.PN.HOSP.TC ---
Today's Communication/Plan
-
medically stable for D/C
Assessment / Plan
Assessment / Plan
84yo F with PMHx of CHF, pancreatic cancer (s/p Whipple in 1998), insomnia, hypothyroidism, HTN, afib came with worsening SOB found concern for pneumonia and CHF on CT, however with negative procalcitonin Abx stopped as agreed with pulm. Cardiology
assisted in diuresis. Icu Tech concerned for amiodarone induced ILD, so Prednisone started. CHest XR rapidly improved. Cardiology switched to oral Lasix. HR remained controlled. Medcialy stable to be d/c to STR with slow Prednisone titration by
10mg weekly and outpatient pulm follow up
A/P:
#Acute hypoxic respiratory failure on admission
#Acute on chronic HFmrEF
fusiform aneurysmal dilatation of the ascending thoracic aorta measuring 4.2 cm
Abx stopped
Pulm follows: concern for amiodarone induced - started steroids
Stop Amiodarone
Cardiology follows
LAsix, daily weight, follow electrolytes and Cr
Echo: EF 43%
Consideration for RHC vs trial of steroids as of 02/25/25
CT with new large amount of ground-glass opacity b/l
#small to moderate-sized chronic subpleural airspace consolidation in the posterior and lateral basilar segment of the right lower lobe
unchanged
#L 2-8 rib Fx
PT/OT
pain control
#mild amount of portal venous air in the peripheral aspect of the liver
pneumobilia status post Whipple - cronic, seen on MRCP in 2023
#Transaminitis
#Elevated alk.phos
improving off Amiodarone
no RUQ pain
seems subacute started on this admission
Might need repeated MRCP as outpatient if persists - defer to established GI
#Persistent Afib
tele
cont rate control and Xarelto as per Card
#SY
#Hx of GIB
GI planned for outpatient capsule
S/P EGD and colonoscopy in Nov 2024
#Hypothyroidism
#Anxiety/depression d/o
#Essential HTN
#HLD
#Insomnia
#L atrial appendage thrombus
cont home meds
DVT ppx Xarelto
Full code
I have spent at least 51min reviwing chart, test results, communication with consultants and providing direct patient care
Anticipated Discharge: Within 24 hours
Subjective/Interval History
-
Date of Service: February 26, 2025
Objective Data
-
Labs:
Laboratory Results
02/26/25
07:39
WBC 6.4
Hgb 12.6
Hct 40.9
Plt Count 492 H
Sodium 139
Potassium 3.8
Chloride 99
Carbon Dioxide 33 H
BUN 22 H
Creatinine 0.7
Glucose 120 H
Calcium 9.4
Total Bilirubin 0.5
AST 65 H
ALT 76 H
Alkaline Phosphatase 219 H
Vital Signs:
Vital Signs
Temp Pulse Resp BP Pulse Ox
97.7 F 97 16 133/87 96
02/26/25 07:35 02/26/25 07:35 02/26/25 07:35 02/26/25 09:18 02/26/25 07:35
I&O
02/25/25 02/26/25 02/27/25
06:59 06:59 06:59
Intake Total 900 / 900 1500 / 1500
Output Total 600 / 600
Balance 300 / 300 1500 / 1500
Review of Systems
-
History Source: Patient
All other systems: Reviewed and negative
Physical Exam
-
General: No Apparent Distress
HEENT: Normocephalic
Respiratory: Crackles
Cardiac: Regular Rhythm
GI: Soft
Neuro: Awake, Alert, Oriented and AO x 3
Psych: Calm
--- NOTE | 2025-02-26 12:51 | CM ---
Chart reviewed. Discussed w/ hospitalist. Plan is for patient to d/c to SNF
Spoke w/ [facility] liaison, will have a bed for patient tomorrow
Patient will require insurance auth, CM can obtain tomorrow
Updated son via phone, left message
Patient will need ambulance transport
Plan: D/c to [facility] tomorrow
--- NOTE | 2025-02-26 15:12 | W.PN.CARDCBS ---
Addendum entered and electronically signed by Hema Jimenez MD 02/26/25 17:01:
84-year-old woman with persistent atrial fibrillation and left atrial appendage thrombus admitted for suspected acute on chronic HFrEF versus amiodarone pulmonary toxicity. proBNP 6000
Now amiodarone held related to elevated LFTs and concerns regarding amiodarone pulmonary toxicity.
PMH/PSH: Left atrial appendage thrombus, persistent atrial fibrillation, presumed nonischemic cardiomyopathy, hypertension, hyperlipidemia, history of Whipple 1998, history of pulmonary embolus, thoracic aortic aneurysm, anxiety/depression,
hypothyroidism, fall with rib and cervical spine injury November
115/17, pulse 95, respiratory rate 16, sats 94%, Weight is 50.8 kg, if accurate up 1.2 kg, still down 4.5 kg from admission, frail, pleasant, lungs are relatively clear,, very soft murmur at apex, abdomen benign no edema
proBNP is 2630, improved from 6000 on admission
Chest x-ray 02/26: Possibly improved
Hemoglobin 12.6, BUN and creatinine 22 and 0.7, potassium 3.8
Impression:
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
Possible acute on chronic heart failure with mildly reduced EF, suspect nonischemic
History of Whipple procedure 1998
History of pulmonary embolus
Anxiety/depression
Hypothyroidism
Fall with rib fractures and cervical injury
History of thoracic aortic aneurysm
Persistent atrial fibrillation
Left atrial appendage thrombus
Hypertension
Hyperlipidemia
Other diagnoses as below. Findings, assessments, recommendations reviewed in detail and agree unless otherwise specified.
Plan:
Overall, she appears stable. She is not sure but thinks her dyspnea may be improved.
Presumptively, we will assume that amiodarone pulmonary toxicity is playing a role, along with superimposed HFpEF.
Liver function tests are still elevated but trending down closer to normal
Okay to proceed with discharge planning
Recommended cardiac meds at discharge:
Atorvastatin 10 mg a day
Metoprolol ER 50 mg twice daily
Xarelto 20 mg a day
Losartan 50 mg daily
Jardiance 10 mg daily
Furosemide 20 mg daily (was Tuesday)
Stop amiodarone
Consider spironolactone as outpatient
Please check CMP in 1 week
We will arrange for cardiac follow-up
Original Note:
Today's Communication / Plan
-
po lasix 20mg daily for DC
BMP in 1 week
continue toprol, losartan, farxiga
xarelto 15mg QPM
amiodarone stopped this admission
Op cardiac follow up arranged
for SNF in AM
Impression / Plan
-
Primary jacquard loom card changer: Dr. Rodriguez
Assessment:
Presentation with shortness of breath, hypoxia
Severe bilateral pneumonia by chest x-ray
Concern for acute on chronic heart failure with reduced EF
Persistent atrial fibrillation
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
Presumed nonischemic cardiomyopathy, EF 30-35% by echo 09/2024
Hypertension
Hyperlipidemia
History of pancreatic mass status post Whipple surgery 1998 at [place] [facility] [place]
History of pulmonary embolism
Thoracic aortic aneurysm
Anxiety/depression
Hypothyroidism
Fall 11/2024 with 7 left-sided rib fractures and cervical spine and sacral fracture
Lexiscan nuclear stress test 07/26/2024: No perfusion abnormalities noted, EF 35%
Echo 06/06/2024: EF 20 to 25%, global hypokinesis with regional variability, mild to moderate MR, mild to moderate TR, PAP 50 to 55 mmHg, dilated ascending aorta measuring 3.9 cm
Echo 10/03/2024: EF 35 to 40%, global hypokinesis, mild LVH, mild to moderate MR, mild AR, mild to moderate TR, PAP 26 mmHg
Echocardiogram 02/21/2025: Ejection fraction 43%, RV size and function within normal limits when compared with echo 09/2024 EF is slightly improved
Plan:
- She is feeling much improved from admission
- There was concern for possible amiodarone toxicity given elevated LFTs and concern for ILD by chest x-ray, therefore was discontinued this admission
- Repeat proBNP much improved (6000-->2000) from admission and CXR also with 'virtual complete interval resolution of markings B/L'. transitioned to po lasix 20mg daily. Cr stable
- EF 43% by echo 02/21. continue toprol, losartan, farxiga (added this admission).
- remains in rate controlled afib on review of tele overnight. continue BB for rate control.
- continue xarelto 15mg QPM
-There has been consideration for outpatient ANAMARIA to reassess her known left atrial appendage thrombus which was present on ANAMARIA 04/20/2024 and 06/21/2024. Thrombus has not been reassessed since 06/2024 ANAMARIA. If no thrombus on repeat ANAMARIA, t/c
cardiovert.
- Op cardiac follow up arranged
- plan for DC to SNF in AM
Progress Note - Waterworks Chief Engineer
Subjective
Date of Service: February 26, 2025
reports SOB much improved from admission.
Objective
Labs:
02/26/25 07:39
02/26/25 07:39
Labs
Hgb 12.6 g/dL (12.0-16.0) 02/26/25 07:39
Hct 40.9 % (37.0-47.0) 02/26/25 07:39
Plt Count 492 10^3/uL (130-400) H 02/26/25 07:39
Sodium 139 mmol/L (135-145) 02/26/25 07:39
Potassium 3.8 mmol/L (3.5-5.1) 02/26/25 07:39
BUN 22 mg/dl (7-17) H 02/26/25 07:39
Creatinine 0.7 mg/dL (0.6-1.0) 02/26/25 07:39
Glucose 120 mg/dl (70-99) H 02/26/25 07:39
Vital Signs and I&O:
Vital Signs
Temp Pulse Resp BP Pulse Ox
98.2 F 95 16 115/17 94
02/26/25 11:00 02/26/25 11:00 02/26/25 11:00 02/26/25 11:00 02/26/25 11:00
Vital Signs
Temp Pulse Resp BP Pulse Ox
98.2 F 95 16 115/17 94
02/26/25 11:00 02/26/25 11:00 02/26/25 11:00 02/26/25 11:00 02/26/25 11:00
Intake & Output
02/24/25 02/25/25 02/26/25 02/27/25
07:59 07:59 07:59 07:59
Intake Total 1190 / 1190 900 / 900 1500 / 1500 240 / 240
Output Total 1250 / 1250 600 / 600
Balance -60 / -60 300 / 300 1500 / 1500 240 / 240
Physical Exam
Physical Exam
GEN: No distress, awake, alert, oriented x3. sitting in chair
HEENT: supple, anicteric, mmm, eomi
LUNGS: CTA B/L, no wheezes/rales
CV: Irreg, S1/S2, no murmur
ABD: soft, BS+, NT/ND
EXT: No cyanosis, clubbing, edema
NEURO: Gross non-focal
SKIN: Warm, pink, dry. No rash
--- NOTE | 2025-02-26 16:01 | W.PN.PUL3 ---
Today's Communication / Plan
-
- Continue to stay off amiodarone
- Continue prednisone, will plan a slow taper considering amiodarone has long half life.
- Outpatient follow-up with [facility] pulmonary clinic
Assessment
-
Patient is an 84y F with PMH significant for A-Fib on Xarelto, HFrEF, Iron deficiency anemia presenting to ED complaining of SOB and weakness. Patient suffered major fall with trauma about 7 weeks ago. She had fractures of 7 ribs on the left, 2
cervical vertebrae and sacrum. She was admitted at [facility] and discharged to rehab. About one week ago, she started to have notable dyspnea with exertion and increased complaints of left-sided chest pain. No significant cough, fevers / chills.
Patient suffered an additional fall on Sunday 02/18. She was seen in the ED here for evaluation. No new fractures were appreciated; however, it was noted that she had incompletely healed L rib fractures with moderate-severe chest wall deformity.
She has been increasingly inactive in the past week according to family. At home her SpO2 was noted to be extremely low (in the 70s) and patient was advised to present to the ED for evaluation. CT Chest obtained and negative for PE, she has
multifocal PNA noted. She was 84-87% on RA, placed on O2. She is being treated for CHF, proBNP 6070. We are consulted for hypoxemia.
Acute hypoxic respiratory failure
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
Recent history of Rib fractures with chest deformity on L
SOB
Progressive weakness
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
Atrial thrombus
Atrial fibrillation/Chronic anticoagulation
GERD without esophagitis
Hx of malignant neoplasm of pancreas
HTN
Chronic constipation
Unintentional weight loss
Anemia
Plan
-Continue supplemental oxygen, target SpO2 greater than 90%
-Procalcitonin is negative, off antibiotic, clinically less likely acute infectious pneumonia.
-BNP elevated, however patient has primarily upper and middle lobe predominant interstitial infiltrates and appears dry on clinical exam. 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
related interstitial pneumonitis/ILD. 02/25, started on prednisone. Follow-up x-ray 02/26 with significant improvement.
-Stay off amiodarone, initiated prednisone 40 mg daily. Abnormal LFTs also noted. On room air now, few inspiratory crackles on exam.
- Transition to p.o. Lasix per cardiology service.
-Monitor off antibiotics
- Outpatient follow-up with [facility] pulmonary clinic, discharge planning
Prior history of lung disease is NOT noted--
Denies prior known history of lung disease in past, was a former trivial smoker overall <5 years.
No prior PFTs for review
proBNP >6000
She has h/o atrial thrombus/fib on chronic OAC, less likely PE
CTA was negative
Smoking history noted--trivial
Not at risk for lung disease
Multiple falls noted, may need to consider PT/OT
SNF placement
Encouraged IS
She has forgetfulness as well
Fall risk
Will need outpatient pulmonary evaluation in our office for PFTs and 6MWT
Reviewed with patient
Pulmonary service will continue to follow along
Diagnostic Data
ECHO 10/03/24- Normal left ventricular size. Mildly reduced systolic function. LV ejection fraction is 35-40% by visual assessment. Global hypokinesis. Mild left ventricular hypertrophy. Mild to moderate mitral regurgitation. Mild aortic
regurgitation. Mild to moderate tricuspid regurgitation. Estimated pulmonary artery pressure of 26 mmHg. Compared to the previous echo from Jun 2024, which was reviewed, EF was 20-25% at that time, otherwise no significant change.
CT Chest 02/20/25- 1. SEVERE GROUND-GLASS OPACITY in the upper lobes, right middle lobe, and superior segment of the right lower lobe which appears new from 12/21/2024. Diagnostic possibilities are (1) SEVERE BILATERAL PNEUMONIA, (2) an acute
inflammatory pneumonitis, or (3) noncardiogenic pulmonary edema.
2. Central cylindrical bronchiectasis and diffuse bronchitis throughout both lungs.
3. Small to moderate-sized chronic subpleural airspace consolidation in the right lower lobe.
4. Small left and minimal right pleural effusions.
5. Severe biatrial cardiac enlargement.
6. Fusiform ascending thoracic aortic aneurysm (4.2 cm diameter).
7. Many subacute left posterior and lateral rib fractures (left 2nd through 8th ribs) with callus formation around some of the fractures suggesting fracture healing.
8. Mild portal venous air in the liver.
9. Moderate thoracic kyphosis secondary to a chronic endplate fracture of T7.
CT Chest 12/21/24: No CTA evidence for an acute pulmonary thromboembolism. Large hematoma of the left lateral chest wall. Multiple acute, displaced left rib fractures superimposed upon other older chronic rib fractures with resultant chest wall
deformity. Small fracture of the left eighth transverse process. Small left and trace right pleural effusions.
Reports and relevant images were personally reviewed.
Total time spent today was 36 minutes for this encounter. Time includes reviewing laboratory test/imaging results, reviewing pertinent medical records, obtaining and reviewing medical history, performing an appropriate exam, ordering medications,
tests and procedures. Time also includes documentation of this encounter, coordinating patient care and communicating with other healthcare professionals. Total time does not include separately billed tests performed on this date of service.
Subjective Data
-
Date of Service:
Date of Service: February 26, 2025
Chief Complaint: Pulmonary Follow Up
Subjective:
Patient comfortably lying in bed, reports overall feeling better.
Review of Systems
Genitourinary: Other (All 14 systems reviewed and negative except as stated above in the history of present illness.)
Objective Data
Data Reviewed
Vital Signs / I&O / Oxygen:
Vital Signs
Temp Pulse Resp BP Pulse Ox
98.1 F 65 18 136/96 95
02/26/25 15:30 02/26/25 15:30 02/26/25 15:30 02/26/25 15:30 02/26/25 15:30
Intake and Output
02/25/25 02/26/25 02/27/25
06:59 06:59 06:59
Intake Total 900 / 900 1500 / 1500 240 / 240
Output Total 600 / 600
Balance 300 / 300 1500 / 1500 240 / 240
SaO2 95
Nasal Cannula flow liters per 2
minute
Physical Exam
General: Comfortable and Other (NAD)
HEENT: Normocephalic, Anicteric and Moist Mucous Membranes
Cardiovascular: S1-S2 and Regular Rhythm
Respiratory: Crackles (Few inspiratory crackles, overall improved) and Non-Labored Respirations
GI: Soft, Non Distended and Non Tender
Neurology: Awake, Alert, Oriented and No Motor Deficits
Skin: Warm, Dry and Good Color
Labs/Micro/Reports
Lab Data
02/26/25 07:39
02/26/25 07:39
[2025-02-26] MEDS: LIPITOR 10 MG PO (16:48)
[2025-02-26] MEDS: ELAVIL 10 MG PO (19:51)
[2025-02-27 00:01] VITALS: BP 105/72
[2025-02-27 03:14] VITALS: BP 124/88
[2025-02-27] MEDS: SYNTHROID 75 MCG PO (04:51)
[2025-02-27 06:00] VITALS: BMI 19.9
[2025-02-27 07:30] VITALS: BP 132/82
--- NOTE | 2025-02-27 07:51 | W.PN.PUL3 ---
Today's Communication / Plan
-
- Prednisone 40 mg daily, drop by 10 mg every 5 days until off
- Out patient follow up with Pulmonary clinic in 2-4 weeks time.
Assessment
-
Patient is an 84y F with PMH significant for A-Fib on Xarelto, HFrEF, Iron deficiency anemia presenting to ED complaining of SOB and weakness. Patient suffered major fall with trauma about 7 weeks ago. She had fractures of 7 ribs on the left, 2
cervical vertebrae and sacrum. She was admitted at [facility] and discharged to rehab. About one week ago, she started to have notable dyspnea with exertion and increased complaints of left-sided chest pain. No significant cough, fevers / chills.
Patient suffered an additional fall on Sunday 02/18. She was seen in the ED here for evaluation. No new fractures were appreciated; however, it was noted that she had incompletely healed L rib fractures with moderate-severe chest wall deformity.
She has been increasingly inactive in the past week according to family. At home her SpO2 was noted to be extremely low (in the 70s) and patient was advised to present to the ED for evaluation. CT Chest obtained and negative for PE, she has
multifocal PNA noted. She was 84-87% on RA, placed on O2. She is being treated for CHF, proBNP 6070. We are consulted for hypoxemia.
Acute hypoxic respiratory failure
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
Recent history of Rib fractures with chest deformity on L
SOB
Progressive weakness
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
Atrial thrombus
Atrial fibrillation/Chronic anticoagulation
GERD without esophagitis
Hx of malignant neoplasm of pancreas
HTN
Chronic constipation
Unintentional weight loss
Anemia
Plan
- As needed supplemental oxygen, target SpO2 greater than 90%.
-Procalcitonin is negative, off antibiotic, clinically less likely acute infectious pneumonia.
-BNP elevated, however patient has primarily upper and middle lobe predominant interstitial infiltrates and appears dry on clinical exam. 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
related interstitial pneumonitis/ILD. 02/25, started on prednisone. Follow-up x-ray 02/26 with significant improvement.
-Stay off amiodarone, initiated prednisone 40 mg daily. Abnormal LFTs also noted. On room air now, few inspiratory crackles on exam.
- Transitioned to p.o. Lasix per cardiology service.
-Monitor off antibiotics
- Outpatient follow-up with [facility] pulmonary clinic, discharge planning
- Stable for discharge from pulmonary standpoint. Will discharge with slow tapering of prednisone and follow-up outpatient in pulmonary clinic.
Prior history of lung disease is NOT noted--
Denies prior known history of lung disease in past, was a former trivial smoker overall <5 years.
No prior PFTs for review
proBNP >6000
She has h/o atrial thrombus/fib on chronic OAC, less likely PE
CTA was negative
Smoking history noted--trivial
Not at risk for lung disease
Multiple falls noted, may need to consider PT/OT
SNF placement
Encouraged IS
She has forgetfulness as well
Fall risk
Will need outpatient pulmonary evaluation in our office for PFTs and 6MWT
Reviewed with patient
Diagnostic Data
ECHO 10/03/24- Normal left ventricular size. Mildly reduced systolic function. LV ejection fraction is 35-40% by visual assessment. Global hypokinesis. Mild left ventricular hypertrophy. Mild to moderate mitral regurgitation. Mild aortic
regurgitation. Mild to moderate tricuspid regurgitation. Estimated pulmonary artery pressure of 26 mmHg. Compared to the previous echo from Jun 2024, which was reviewed, EF was 20-25% at that time, otherwise no significant change.
CT Chest 02/20/25- 1. SEVERE GROUND-GLASS OPACITY in the upper lobes, right middle lobe, and superior segment of the right lower lobe which appears new from 12/21/2024. Diagnostic possibilities are (1) SEVERE BILATERAL PNEUMONIA, (2) an acute
inflammatory pneumonitis, or (3) noncardiogenic pulmonary edema.
2. Central cylindrical bronchiectasis and diffuse bronchitis throughout both lungs.
3. Small to moderate-sized chronic subpleural airspace consolidation in the right lower lobe.
4. Small left and minimal right pleural effusions.
5. Severe biatrial cardiac enlargement.
6. Fusiform ascending thoracic aortic aneurysm (4.2 cm diameter).
7. Many subacute left posterior and lateral rib fractures (left 2nd through 8th ribs) with callus formation around some of the fractures suggesting fracture healing.
8. Mild portal venous air in the liver.
9. Moderate thoracic kyphosis secondary to a chronic endplate fracture of T7.
CT Chest 12/21/24: No CTA evidence for an acute pulmonary thromboembolism. Large hematoma of the left lateral chest wall. Multiple acute, displaced left rib fractures superimposed upon other older chronic rib fractures with resultant chest wall
deformity. Small fracture of the left eighth transverse process. Small left and trace right pleural effusions.
Reports and relevant images were personally reviewed.
Total time spent today was 38 minutes for this encounter. Time includes reviewing laboratory test/imaging results, reviewing pertinent medical records, obtaining and reviewing medical history, performing an appropriate exam, ordering medications,
tests and procedures. Time also includes documentation of this encounter, coordinating patient care and communicating with other healthcare professionals. Total time does not include separately billed tests performed on this date of service.
Subjective Data
-
Date of Service:
Date of Service: February 27, 2025
Chief Complaint: Pulmonary Follow Up
Subjective:
Patient comfortably lying in bed in no acute distress. Currently on room air.
Review of Systems
Genitourinary: Other (All 14 systems reviewed and negative except as stated above in the history of present illness.)
Objective Data
Data Reviewed
Vital Signs / I&O / Oxygen:
Vital Signs
Temp Pulse Resp BP Pulse Ox
97.5 F 81 17 124/88 93
02/27/25 03:14 02/27/25 03:14 02/27/25 03:14 02/27/25 03:14 02/27/25 03:14
Intake and Output
02/26/25 02/27/25 02/28/25
06:59 06:59 06:59
Intake Total 1500 / 1500 460 / 460
Output Total 400 / 400
Balance 1500 / 1500 60 / 60
SaO2 93
Nasal Cannula flow liters per 2
minute
Physical Exam
General: Comfortable and Other (NAD)
HEENT: Normocephalic, Anicteric and Moist Mucous Membranes
Cardiovascular: S1-S2 and Regular Rhythm
Respiratory: Crackles (Few inspiratory crackles, overall improved) and Non-Labored Respirations
GI: Soft, Non Distended and Non Tender
Neurology: Awake, Alert, Oriented and No Motor Deficits
Skin: Warm, Dry and Good Color
Labs/Micro/Reports
Lab Data
02/26/25 07:39
02/26/25 07:39
[2025-02-27] MEDS: COZAAR 50 MG PO (09:08)
[2025-02-27] MEDS: XARELTO 15 MG PO (09:09)
[2025-02-27] MEDS: LASIX 20 MG PO (09:09)
[2025-02-27] MEDS: TOPROL XL 50 MG PO (09:09)
[2025-02-27] MEDS: FARXIGA 10 MG PO (09:09)
[2025-02-27] MEDS: PROTONIX 40 MG PO (09:09)
[2025-02-27] MEDS: EFFEXOR XR 75 MG PO (09:10)
[2025-02-27] MEDS: DELTASONE 40 MG PO (09:10)
--- NOTE | 2025-02-27 09:22 | CM ---
CM called [employer] to initiate auth, spoke w/ Klaudia and provided clinical information.
Auth approved beginning today NRD is 03/04
Auth ref [id number]
Ambulance auth ref [id number]
Updated hospitalist, will place d/c
Updated son via phone. IMM verbally reviewed w/ son, copy on chart
Updated Gavino/Marv nesbitt w/ auth info
[facility]
Report: [phone]

Plan: D/c to [facility] today
--- NOTE | 2025-02-27 09:36 | W.PN.HOSP.TC ---
Today's Communication/Plan
-
dc
Assessment / Plan
Assessment / Plan
84yo F with PMHx of CHF, pancreatic cancer (s/p Whipple in 1998), insomnia, hypothyroidism, HTN, afib came with worsening SOB found concern for pneumonia and CHF on CT, however with negative procalcitonin Abx stopped as agreed with pulm. Cardiology
assisted in diuresis. University Controller concerned for amiodarone induced ILD, so Prednisone started. CHest XR rapidly improved. Cardiology switched to oral Lasix. HR remained controlled. Medcialy stable to be d/c to STR with slow Prednisone titration by
10mg weekly and outpatient pulm follow up
A/P:
#Acute hypoxic respiratory failure on admission
#Acute on chronic HFmrEF
fusiform aneurysmal dilatation of the ascending thoracic aorta measuring 4.2 cm
Abx stopped
Pulm follows: concern for amiodarone induced - started steroids
Stop Amiodarone
Cardiology follows
LAsix, daily weight, follow electrolytes and Cr
Echo: EF 43%
Consideration for RHC vs trial of steroids as of 02/25/25
CT with new large amount of ground-glass opacity b/l
#small to moderate-sized chronic subpleural airspace consolidation in the posterior and lateral basilar segment of the right lower lobe
unchanged
#L 2-8 rib Fx
PT/OT
pain control
#mild amount of portal venous air in the peripheral aspect of the liver
pneumobilia status post Whipple - cronic, seen on MRCP in 2023
#Transaminitis
#Elevated alk.phos
improving off Amiodarone
no RUQ pain
seems subacute started on this admission
Might need repeated MRCP as outpatient if persists - defer to established GI
#Persistent Afib
tele
cont rate control and Xarelto as per Card
#SY
#Hx of GIB
GI planned for outpatient capsule
S/P EGD and colonoscopy in Nov 2024
#Hypothyroidism
#Anxiety/depression d/o
#Essential HTN
#HLD
#Insomnia
#L atrial appendage thrombus
#Cognitive impairment
cont home meds
DVT ppx Xarelto
Full code
I have spent at least 36min reviwing chart, test results, communication with consultants and providing direct patient care
Anticipated Discharge: Today
Subjective/Interval History
-
Date of Service: February 27, 2025
Objective Data
-
Vital Signs:
Vital Signs
Temp Pulse Resp BP Pulse Ox
97.3 F 80 18 132/82 97
02/27/25 07:30 02/27/25 09:09 02/27/25 07:30 02/27/25 07:30 02/27/25 07:30
I&O
02/26/25 02/27/25 02/28/25
06:59 06:59 06:59
Intake Total 1500 / 1500 460 / 460
Output Total 400 / 400
Balance 1500 / 1500 60 / 60
Review of Systems
-
History Source: Patient
All other systems: Reviewed and negative
Physical Exam
-
General: No Apparent Distress
Neuro: Awake, Alert, Oriented and AO x 3
Psych: Calm and Apparent Dementia
--- NOTE | 2025-02-27 09:38 | W.DCSUMMARY ---
Discharge Summary
Discharge Data
Date of Admission: 02/20/25
Date of Discharge: 02/27/25
-
Pending Results: No
Hospital Course
84yo F with PMHx of CHF, pancreatic cancer (s/p Whipple in 1998), insomnia, hypothyroidism, HTN, afib came with worsening SOB found concern for pneumonia and CHF on CT, however with negative procalcitonin Abx stopped as agreed with pulm. Cardiology
assisted in diuresis. Manager Private concerned for amiodarone induced ILD, so Prednisone started. CHest XR rapidly improved. Cardiology switched to oral Lasix. HR remained controlled. Medcialy stable to be d/c to STR with slow Prednisone titration by
10mg weekly and outpatient pulm follow up
I have spent at least 36min reviwing chart, test results, communication with consultants and providing direct patient care
Patient was managed for:
#Acute hypoxic respiratory failure on admission
#Acute on chronic HFmrEF
#fusiform aneurysmal dilatation of the ascending thoracic aorta measuring 4.2 cm
#Reactive thrombocytosis
#small to moderate-sized chronic subpleural airspace consolidation in the posterior and lateral basilar
#L 2-8 rib Fx
#mild amount of portal venous air in the peripheral aspect of the liver
#Transaminitis
#Elevated alk.phos
#Persistent Afib
#SY
#Hx of GIB
#Hypothyroidism
#Anxiety/depression d/o
#Essential HTN
#HLD
#Insomnia
#L atrial appendage thrombus
#Cognitive impairment
Discharge Plan
-
Patient Disposition: Usp/SNF
Discharge Diagnosis/Procedures: acute heart failure exacerbation
Diet: Low Cholesterol and 2 Gram Sodium
Activity: As tolerated
Blood Work: CMP in 1 week
Specialty Instructions: Weigh Daily- Call MD for wt gain/loss 3 lbs overnight/5 lbs in 1 week
Instructions: *[facility] Heart Failure Instructions
Referrals:
Kp Abel MD [Active, Pulmonary Medicine] - in two to four weeks
Norma Mercado CRNP [Specified Professional Personl, Cardiology] - 04/01/25 2:00 pm
Referral Note: You have a cardiology follow-up appointment at the [place] office. Please call with questions
Additional Discharge Medication Instructions: STOP amiodarone!
Prescriptions:
New
Jardiance 10 mg tablet
10 mg PO DAILY 30 Days Qty: 30 11RF
prednisone 20 mg Tablet
See Taper PO DAILY Qty: 60 0RF
Taper: Prednisone DC Starting at 40 mg daily
40 mg Daily for 7 Days and 0 Hour
30 mg Daily for 7 Days and 0 Hour
20 mg Daily for 7 Days and 0 Hour
10 mg Daily for 7 Days and 0 Hour
furosemide 20 mg Tablet
20 mg PO DAILY Qty: 30 0RF
atorvastatin 10 mg Tablet
10 mg PO QPM Qty: 30 0RF
Continued
levothyroxine [Synthroid] 50 MCG tablet
75 mcg PO DAILY
losartan 50 MG tablet
50 mg PO DAILY
venlafaxine 75 MG tablet
75 mg PO DAILY
Rx Instructions:
on hold due to interaction with eliquis
amitriptyline 10 MG tablet
10 mg PO HS
metoprolol tartrate 25 MG tablet
50 mg PO BID
acetaminophen 500 mg Tablet
500 mg PO BID
omeprazole 20 mg Capsule,Delayed Release(Dr/Ec)
20 mg PO DAILY
Centrum Adults 12 mcg Tablet,Chewable
1 tab PO DAILY
calcium carbonate-vitamin D3 500 mg-3.125 mcg (125 unit) Tablet
1 tab PO QPM
Xarelto 20 mg Tablet
20 mg PO DAILY
Discontinued
atorvastatin 40 MG tablet
10 mg PO QPM
amiodarone 200 mg Tablet
200 mg PO DAILY
cholecalciferol (vitamin D3) [Vitamin D3] 25 mcg (1,000 unit) Tablet
25 mcg PO DAILY
furosemide 20 mg tablet
20 mg PO MOWEFR
Discharge Orders:
Discharge Patient (As Directed); Ordered 02/27/25
Ordered By: Gary Arroyo
Discharge Date and Time
Print Language: KOREAN
[2025-02-27] MEDS: FLUZONE HIGH-DOSE 2025-26 0.5 ML IM (10:31)
[2025-02-27 11:26] VITALS: BP 120/78
== END 2025-02-27 11:42 | DRG 205 ==
LOC: 4 EAST ACU 21:53
PROVIDERS: Internal Medicine; Nurse Practitioner; ADMITTING PHYSICIAN Hospitalist; ATTENDING PHYSICIAN Internal Medicine; EMERGENCY PHYSICIAN Student in an Organized Health Care Education/Training Program; OTHER PHYSICIAN Internal Medicine; OTHER PHYSICIAN Internal Medicine Cardiovascular Disease
PROC: 3E02340 Introduction of Influenza Vaccine into Muscle, Percutaneous Approach (ICD-10-PCS; 2025-02-27)
DX: J70.2 Acute drug-induced interstitial lung disorders (principal); I50.23 Acute on chronic systolic (congestive) heart failure; J96.01 Acute respiratory failure with hypoxia; K26.4 Chronic or unspecified duodenal ulcer with hemorrhage; S22.42XA Multiple fractures of ribs, left side, initial encounter for closed fracture; J98.11 Atelectasis; I48.21 Permanent atrial fibrillation; F03.A18 Unspecified dementia, mild, with other behavioral disturbance; F03.A4 Unspecified dementia, mild, with anxiety; F03.A3 Unspecified dementia, mild, with mood disturbance; Z87.891 Personal history of nicotine dependence; D50.0 Iron deficiency anemia secondary to blood loss (chronic); E03.9 Hypothyroidism, unspecified; Z79.01 Long term (current) use of anticoagulants; K59.09 Other constipation; F32.A Depression, unspecified; G47.00 Insomnia, unspecified; I11.0 Hypertensive heart disease with heart failure; D75.838 Other thrombocytosis; I71.21 Aneurysm of the ascending aorta, without rupture; W19.XXXA Unspecified fall, initial encounter; Z11.52 Encounter for screening for COVID-19; Z23 Encounter for immunization; Z79.899 Other long term (current) drug therapy
CPT/HCPCS: 71045; 71275; 80048; 80053; 83880; 84145; 84484; 85025; 85027; 87070; 87811; 90662; 93005; 93308; 96374; 97110; 97116; 97163; 97167; 97530; 97535; 99285; G0008; Q9967